=== PATIENT | female | born 1955 | race Caucasian/White ===

== ENCOUNTER 2020-01-29 11:50 | Outpatient (CLI) | payer OTHER, SELFPAY ==
--- NOTE | ~2020-01-29 | MM_ITS ---
EXAMINATION: MM screening rodri BI w arya HISTORY: Screening mammogram, family history of breast cancer in her mother. TECHNIQUE: Craniocaudal and mediolateral oblique 3-D tomosynthesis images were obtained and synthetic 2-D images were generated. CAD analysis was submitted and interpreted. COMPARISON: 09/10/2018, 06/11/2017, 01/11/2016 BREAST PARENCHYMAL COMPOSITION: There are scattered areas of fibroglandular density. FINDINGS: Unchanged focal asymmetry is again noted in the upper outer quadrant of the right breast. T here is no evidence of suspicious mass, calcification, or architectural distortion to suggest maligna ncy in either breast. There has been no suspicious interval change. IMPRESSION: 1. No mammographic evidence of malignancy. 2. Recommend routine screening mammography in one year. BI-RADS Category 2: Benign finding(s). Reviewed, dictated and finalized at location A.
== END 2020-01-29 11:51 | disposition home or self-care (01) ==
LOC: ANHIMG 11:52
PROVIDERS: PCP Family Medicine; Visit Provider Obstetrics & Gynecology
DX: Z12.31 Encounter for screening mammogram for malignant neoplasm of breast (principal)
CPT/HCPCS: 77063; 77067

== ENCOUNTER 2020-01-29 21:07 | Emergency (ER) | payer OTHER, SELFPAY ==
--- NOTE | ~2020-01-29 | CT_ITS ---
EXAMINATION: CT abdomen pelvis w con DATE: 01/29/2020 23:13 INDICATION: Left lower quadrant abdominal pain. TECHNIQUE: Computed tomography (CT) of the abdomen and pelvis was performed with 100 mL Omnipaque 350 intravenous contrast. Automated exposure control and iterative reconstruction technique were employe d. The dose-length product was 1300.59 mGy-cm. COMPARISON: CT abdomen and pelvis 10/29/2017 FINDINGS: The visualized portions of the lung bases demonstrate mild atelectasis. No pleural effusion . The heart size is normal. No pericardial effusion. The liver is normal. There are changes of cholec ystectomy. The spleen is normal. Pancreas divisum is noted. The adrenal glands are normal. There are cysts in the kidneys measuring up to 1.2 cm on the right. There are scattered diverticula in the colo n. There is wall thickening of the sigmoid colon with adjacent fat stranding, consistent with diverti culitis. There are no dilated loops of bowel. The appendix is normal. There are no pathologically enl arged lymph nodes. There is no free intraperitoneal fluid. There is severe lumbar spondylosis and mil d thoracic spondylosis. IMPRESSION: 1. Acute sigmoid diverticulitis. No perforation or abscess. Reviewed, dictated and finalized at location A.
[2020-01-29 21:10] VITALS: BP 135/83; PULSE 113; RESP 20; TEMP 36.2; O2SAT 100
[2020-01-29 22:08] LABS: Basophils Absolute Auto 0.1 K/mm3 (0.0-0.1); Basophils Percent Auto 0.5 % (0.2-1.2); Eosinophils Absolute Auto 0.1 K/mm3 (0-0.3); Eosinophils Percent Auto 0.7 % (0-4.4); Hematocrit 40.6 % (37.0-47.0); Hemoglobin 13.7 g/dL (12.0-15.0); Immature Granulocyte Absolute 0.04 K/mm3 (0.00-0.031); Immature Granulocyte Percent A 0.3 % (0-0.5); Lymphocytes Absolute Auto 1.29 K/mm3 (0.9-3.2); Mean Corpuscular HGB Conc 33.7 g/dl (32-36); Mean Corpuscular Hemoglobin 30.9 pg (26-34); Mean Corpuscular Volume 91.4 fl (80-100); Mean Platelet Volume 9.9 fl (7.4-10.4); Monocytes Absolute Auto 1.3 K/mm3 (0.1-0.6); Neutrophils Absolute Auto 10.1 K/mm3 (1.3-6.7); Neutrophils Percent Auto 78.5 % (45.5-73.1); Platelet Count Result 295 k/mm3 (150-375); Red Blood Count 4.44 M/mm3 (4.2-5.4); Red Cell Distribution Width 13.7 % (11.5-14.5); White Blood Count 12.9 K/mm3 (4.5-10.0)
[2020-01-29 22:15] LABS: Add Urine Microscopic? YES; Appearance Urine Clear (Clear); Bacteria Urine Trace /hpf; Bilirubin Urine Negative (Negative); Color Urine Yellow (Yellow); Glucose Urine UA Negative (Negative); Ketones Urine Negative (Negative); Leukocyte Esterase Ur 1+ LEU/UL (Negative); Mucus Urine Rare /lpf; Nitrate Urine Negative (Negative); Protein Urine Negative (Negative); RBC Urine 0-2 /hpf (0-2); Specific Grav Ur 1.018 (1.001-1.035); Squamous Epithelial Cell Urine Moderate /hpf (Few); Urobilinogen Urine Negative mg/dL (<2.0)
[2020-01-29 22:17] LABS: Blood Urine Negative (Negative)
[2020-01-29] MEDS: MORPHINE SULFATE 4 MG/ML INJ IV PUSH (22:17)
[2020-01-29 22:23] VITALS: BP 144/82; PULSE 112; RESP 22; O2SAT 95
--- NOTE | 2020-01-29 22:35 | ED.ABDPAIN ---
HPI - Abdominal Pain General Chief Complaint: Abdominal Pain Stated Complaint: stomach ache, diverticulitus symptoms Time Seen by Provider: 01/29/20 21:33 History of Present Illness HPI narrative: Severe lower abdominal pain since earlier today. No radiation. Associated with nausea. Similar to the pain she has had with diverticulitis in the past. Related Data Home Medications Medication Instructions Recorded Confirmed calcium carbonate 600 mg calcium 600 mg PO DAILY 07/01/19 (1,500 mg) tablet cholecalciferol (vitamin D3) 100 4,000 unit PO DAILY 07/01/19 mcg (4,000 unit) capsule pravastatin 20 mg tablet 20 mg PO DAILY 07/01/19 cyproheptadine 4 mg tablet 4 mg PO .QHS tablet 09/21/19 metoprolol succinate 100 mg 50 mg PO DAILY tablet 09/21/19 tablet,extended release 24 hr vitamin B complex 1 tablet PO DAILY 09/21/19 sulfasalazine 500 mg tablet 1 gm PO BID tablet 01/25/20 Allergies Allergy/AdvReac Type Severity Reaction Status Date / Time No Known Allergies Allergy Verified 01/25/20 11:37 Review of Systems Review of Systems: All systems reviewed & are unremarkable except as noted in HPI and below Constitutional: Constitutional: Denies fever(s) Cardiovascular: Cardiovascular: Denies chest pain Respiratory: Respiratory: Denies dyspnea Gastrointestinal: Gastrointestinal: Reports abdominal pain, Reports diarrhea, Reports nausea and Denies vomiting Genitourinary: Genitourinary: Denies hematuria and Denies dysuria Neurologic: Denies dizziness and Denies weakness [facility] Past Medical History Medical History (Updated 01/31/20 @ 04:29 by Bill Leon MD) Diverticulitis Surgical History Surgical History H/O arthroscopy of knee H/O: hysterectomy History of knee replacement Hx of cholecystectomy Hx of tonsillectomy Social History Social History Smoking status: Never smoker Alcohol intake: never Exam Const: General: healthy appearing and alert Orientation/consciousness: patient oriented x3 Other: mild distress HENMT: Head: normal to inspection Neck: Neck: normal visual inspection and no lymphadenopathy Chest: Chest palpation & inspection: no tenderness Resp: Effort & Inspection: normal respiratory effort Auscultation: clear to auscultation bilaterally, no rales, no rhonchi and no wheezes Cardio: Jugular venous distension: no JVD Rate: regular rate Rhythm: regular rhythm Heart sounds: no murmurs GI: Inspection: non-distended GI Palp: Yes Soft to palpation and No Tenderness to palpation present (GI) Skin: General skin exam: normal color Neuro: General: patient oriented x3 and moves all extremities Speech: normal speech Extrem: General: no edema Psych: Appearance: well kempt Affect: normal affect Course Vital Signs Vital signs: Vital Signs Temperature 36.2 C L 01/29/20 21:10 Pulse Rate 113 H 01/29/20 21:10 Respiratory Rate 20 01/29/20 21:10 Blood Pressure 135/83 01/29/20 21:10 Pulse Oximetry 100 01/29/20 21:10 Temperature 36.2 C L 01/29/20 21:10 Pulse Rate 103 H 01/30/20 00:48 Respiratory Rate 20 01/30/20 00:48 Blood Pressure 157/96 H 01/30/20 00:48 Pulse Oximetry 99 01/30/20 00:48 MDM - Abdominal Pain MDM Narrative Medical decision making narrative: CT shows uncomplicated diverticulitis. She is appropriate for out patient treatment. Differential Diagnosis Differential diagnosis: Likely acute appendicitis, calculus of kidney, diverticulitis and pancreatitis Medical Records Attestation: I reviewed the patient's medical records. Lab Data Attestation: I reviewed the patient's lab results. Result diagrams: 01/29/20 21:57 01/29/20 21:57 Labs: Lab Results 01/29/20 01/29/20 01/29/20 Range/Units 21:57 21:57 21:58 WBC 12.9 H (4.5-10.0) K/mm3 RBC 4.44 (4.2-5.4) M/mm3
[2020-01-29 22:45] LABS: Alanine Aminotransferase 24 U/L (4-35); Albumin Level 4.8 g/dL (3.5-5.1); Alkaline Phosphatase 56 U/L (38-126); Aspartate Amino Transferase 33 U/L (14-36); Bilirubin,Total 0.9 mg/dL (0.2-1.3); Blood Urea Nitrogen 26 mg/dL (7-17); Carbon Dioxide 23 mmol/L (22-30); Chloride 101 mmol/L (98-107); Estimated CRCL calculation 71 ml/min; Estimated Glomerular Filt Rate > 60; Glucose 124 mg/dL (65-105); Lipase 291 U/L (23-300); Potassium 4.3 mmol/L (3.4-5.0); Sodium 134 mmol/L (137-145)
[2020-01-29] MEDS: SODIUM CHLORIDE 0.9% IV 1,000 ML 999 ML IV CONT (22:56)
[2020-01-29] MEDS: ONDANSETRON INJ 4 MG/2 ML VIAL IV PUSH (22:56)
[2020-01-30 00:39] VITALS: BP 157/96; PULSE 103; RESP 20; O2SAT 97
[2020-01-30 00:48] VITALS: BP 157/96; PULSE 103; RESP 20; O2SAT 99
== END 2020-01-30 00:42 | disposition home or self-care (01) ==
PROVIDERS: Emergency Provider Emergency Medicine; PCP Family Medicine
DX: K57.32 Diverticulitis of large intestine without perforation or abscess without bleeding (principal); Z96.659 Presence of unspecified artificial knee joint
CPT/HCPCS: 36415; 74177; 80053; 81001; 81025; 83690; 85025; 87086; 96361; 96365; 96375; 99284; A9270; J2270; J2405; J2543; J3010; J7030; Q9967

== ENCOUNTER → 2020-05-10 11:13 | Outpatient (CLI) | payer OTHER, SELFPAY ==
--- NOTE | ~2020-05-10 | DEXA_ITS ---
Bone Density Report Name: Audra Yoo Age: 65 Sex: Female Ethnicity: White Date of : 1955 Indication: postmenopausal; screening for osteoporosis; height loss; history of glucocorticoids; hysterectomy; Referring Provider: Joe Blake Study: Bone densitometry was performed. Exam Date: May 10, 2020 Accession number: [id number] Bone Density: Region BMD T-score Z-score Classification AP Spine (L1-L4) 1.149 0.9 2.6 Normal Femoral Neck (Left) 0.809 -0.4 1.1 Normal Total Hip (Left) 1.053 0.9 2.1 Normal Femoral Neck (Right) 0.799 -0.4 1.0 Normal Total Hip (Right) 0.919 -0.2 1.0 Normal Total Hip Mean 0.986 0.4 1.6 Normal World Health Organization criteria for BMD impression classify patients as: Normal (T-score at or above -1.0), Osteopenia (T-score between -1.0 and -2.5), or Osteoporosis (T-score at or below -2.5). 10-year Fracture Risk: FRAX not reported because: All T-scores for Spine Total, Hip Total, Femoral Neck at or above -1.0 Clinical Information Provided by Patient: Has taken Glucocorticoids Has used the following medications: Vitamin D, Calcium, MTV Has the following medical conditions: Hysterectomy, stage 3 Kidney disease Patient maximum height was 68.5 Menopause Age: 42 No regular weight bearing exercise Does not regularly consume dairy products Drinks caffeinated beverages Onset of menses at age 14 Number of children 6 Impression: The patient has normal bone mass. The patient has risk factors, including: history of glucocorticoid therapy. Discussion: BONE DENSITY IS ABOVE THE MINIMUM DESIRABLE LEVEL AT ALL SKELETAL SITES TESTED. This patient?s bone mineral density is above the minimum desirable level (T-score -1.0 or better) at all sites measured. The patient should follow a healthful lifestyle (good nutrition with adequate calcium and vitamin D, and appropriate weight-bearing exercise). Follow-Up: Consider repeating this study in 5 years or sooner if there is some new clinical indication. Reported by: [facility] on 05/10/2020 12:07:00 PM. Reviewed, dictated and finalized at location AShania EVANGELISTA
== END ==
PROVIDERS: PCP Family Medicine; Visit Provider Obstetrics & Gynecology
DX: Z13.820 Encounter for screening for osteoporosis (principal); Z78.0 Asymptomatic menopausal state
CPT/HCPCS: 77080

== ENCOUNTER 2021-04-22 15:09 | Emergency (ER) | payer MEDICARE, SELFPAY ==
--- NOTE | ~2021-04-22 | CT_ITS ---
EXAMINATION: CT abdomen pelvis wo con DATE: 04/22/2021 18:33 INDICATION: Abdominal pain and diarrhea. TECHNIQUE: Computed tomography (CT) of the abdomen and pelvis was performed without intravenous contr ast. Automated exposure control and iterative reconstruction technique were employed. The dose-length product was 1168.77 mGy-cm. COMPARISON: 01/29/2020 FINDINGS: Mild discoid atelectasis at the left lower lobe and lingula. Heart size is normal. No pericardial or pleural effusion. Diffuse hepatic steatosis. Cholecystectomy clips the gallbladder fossa. Spleen, graham creas, left kidney and bilateral adrenal glands are normal. 1 cm cyst at the lower pole of the right kidney. Small calcified appendicolith within the normal appendix with no periappendiceal inflammatory stranding to suggest acute appendicitis. There is mild colonic diverticulosis with a sigmoid predomi nance. There is no adjacent inflammatory change to suggest diverticulitis. There is fluid throughout the colon consistent with diarrhea. No bowel obstruction. Decompressed bladder is unremarkable. The uterus is not identified and has likely been surgically resected. No free intraperitoneal gas or flui d. There is new subtle haziness to the mesenteric fat surrounding multiple enlarging and likely react cheryl lymph nodes which still remain within normal limits in size. No pathologically enlarged abdominal or pelvic lymphadenopathy. Tiny fat-containing umbilical hernia. Anterior and posterior spinal fusio n at L4-L5. Severe spondylosis at the lumbosacral junction. IMPRESSION: 1. 2 throughout the colon consistent with diarrhea. 2. Mild mesenteric lymphadenopathy which is likely reactive. 3. Diverticulosis. 4. Diffuse hepatic steatosis. Reviewed, dictated and finalized at location A.
[2021-04-22 15:12] VITALS: BP 130/104; PULSE 97; TEMP 36.4; O2SAT 98
[2021-04-22 17:40] VITALS: BP 124/81; PULSE 95; RESP 18; O2SAT 99
[2021-04-22 17:54] LABS: Basophils Percent Auto 0.4 % (0.2-1.2); Eosinophils Absolute Auto 0.1 K/mm3 (0-0.3); Eosinophils Percent Auto 1.2 % (0-4.4); Hemoglobin 16.5 g/dL (12.0-15.0); Immature Granulocyte Absolute 0.03 K/mm3 (0.00-0.031); Immature Granulocyte Percent A 0.4 % (0-0.5); Lymphocytes Percent Auto 18.8 % (18.3-44.2); Mean Corpuscular HGB Conc 33.7 g/dl (32-36); Mean Corpuscular Hemoglobin 31.7 pg (26-34); Mean Corpuscular Volume 94.2 fl (80-100); Mean Platelet Volume 9.7 fl (7.4-10.4); Monocytes Percent Auto 13.5 % (2.6-8.5); Neutrophils Absolute Auto 4.9 K/mm3 (1.3-6.7); Neutrophils Percent Auto 65.7 % (45.5-73.1); Platelet Count Result 379 k/mm3 (150-375); Red Cell Distribution Width 14.3 % (11.5-14.5); White Blood Count 7.4 K/mm3 (4.5-10.0)
[2021-04-22 18:04] LABS: Alanine Aminotransferase 59 U/L (4-35); Albumin Level 5.3 g/dL (3.5-5.1); Alkaline Phosphatase 59 U/L (38-126); Anion Gap 13 mmol/L (8-16); Aspartate Amino Transferase 54 U/L (14-36); Bilirubin,Total 1.1 mg/dL (0.2-1.3); Blood Urea Nitrogen 44 mg/dL (7-17); Calcium 10.1 mg/dL (8.4-10.2); Carbon Dioxide 21 mmol/L (22-30); Chloride 102 mmol/L (98-107); Estimated CRCL calculation 37 ml/min; Estimated Glomerular Filt Rate 30; Glucose 120 mg/dL (65-110); Lipase 217 U/L (23-300); Potassium 4.4 mmol/L (3.4-5.0); Sodium 136 mmol/L (137-145)
[2021-04-22 18:47] LABS: Add Urine Microscopic? YES; Amorphous Sediment Urine Few; Appearance Urine Cloudy (Clear); Bilirubin Urine Negative (Negative); Blood Urine Negative (Negative); Color Urine Amber (Yellow); Glucose Urine UA Negative (Negative); Hyaline Casts Urine 30-49 /lpf; Ketones Urine Trace mg/dL (Negative); Leukocyte Esterase Ur Trace LEU/UL (Negative); Mucus Urine Rare /lpf; Nitrate Urine Negative (Negative); Protein Urine 1+ mg/dL (Negative); Specific Grav Ur 1.026 (1.001-1.035); Squamous Epithelial Cell Urine Moderate /hpf (Few); Urobilinogen Urine Negative mg/dL (<2.0)
--- NOTE | 2021-04-22 18:56 | ED.NAVMDI ---
HPI - Nausea/Vomiting/Diarrhea General Chief complaint: Nausea/Vomiting/Diarrhea Stated complaint: n/v/d Time Seen by Provider: 04/22/21 18:09 Mode of arrival: ambulatory Limitations: no limitations History of Present Illness HPI Narrative: 66-year-old female past medical history of psoriatic arthritis complaining of 5-day history of diarrhea. Patient complains of watery stool every time she eats. Up to 6 times a day. No fever, does have nausea, no abdominal pain occasionally has some abdominal cramping none focal worse with food. No vomiting, no bright red blood per rectum no hematochezia no melena. No other complaints. She does state that when she gets diverticulitis it feels different than this. Patient states methotrexate recently decreased, and two medicines were discontinued including hydroxychloroquine. Related Data Home Medications Medication Instructions Recorded Confirmed cholecalciferol (vitamin D3) 100 4,000 unit PO DAILY 07/01/19 12/06/20 mcg (4,000 unit) capsule vitamin B complex 1 tablet PO DAILY 09/21/19 12/06/20 folic acid 1 mg tablet 1 mg PO DAILY 12/06/20 12/06/20 skjmlxfg-qat-qoenf ac 400 tablet PO 12/06/20 12/06/20 mcg-calcium carb 500 mg-vit K1 20 mcg tablet methotrexate sodium 2.5 mg tablet See Rx Instructions PO WEEKLY 05/04/21 Allergies Allergy/AdvReac Type Severity Reaction Status Date / Time No Known Allergies Allergy Verified 04/22/21 17:58 Review of Systems Review of Systems: CONSTITUTIONAL: no fever, no weight loss, no confusion EYES: no vision changes, no eye pain ENT: no rhinorrhea, no sore throat, no difficulty swallowing CARDIOVASCULAR: no chest pain, no leg edema, no palpitations RESPIRATORY: no cough, no shortness of breath, no hemoptysis GASTROINTESTINAL: diffuse abdominal pain, no nausea, no vomiting, positive for diarrhea, no melena GENITOURINARY: no flank pain, no dysuria, no hematuria SKIN: no rash, no jaundice MUSCULOSKELETAL: no back pain, no trauma. NEUROLOGIC: No headache, no dizziness, no focal weakness PSYCHIATRIC: No hallucinations, no suicidal ideation PMFSH Past Medical History Medical History (Updated 05/14/21 @ 12:40 by Yoko Allred MD) Diverticulitis Surgical History Surgical History H/O arthroscopy of knee H/O: hysterectomy History of knee replacement Hx of cholecystectomy Hx of tonsillectomy Family History Family History Father Family history of glaucoma Cerebrovascular accident Carcinoma of colon Mother Family history of glaucoma Hypertension Family history of malignant neoplasm of breast in first degree relative Social History Social History Alcohol intake: never Exam Narrative: General: alert, afebrile, answering all questions appropriately Head: normocephalic, atraumatic Eyes: EOMI bilaterally, anicteric, no injection ENT: dry mucous membranes, oropharynx patent, no rhinorrhea Neck: supple, trachea midline, no JVD Chest: equal chest rise bilaterally, no chest wall trauma noted Lungs: clear to auscultation bilaterally, respirations unlabored CV: regular rate, no CINDY B, calf size equal bilaterally Abd: soft, non-distended, mild diffuse tenderness, no rebound, no gaurding, negative Bennett's : no CVA tenderness B, bladder non-distended EXT: no deformity noted, moving all extremities equally Skin: warm, dry, no pallor Neuro: alert, oriented x 3; CN 2-12 grossly intact, no dysarthria Psych: affect appropriate, though content normal Course Course Emergency Course: Cratinine 1.7; HgB 16.5; likely dehydration; IVF infusing, no diarrhea in ed; no elevated WBC, no fever, doubt infectious diarrhea; CT Abd/Pelvis consistent with enteritis;patient with multiple abx allergies, will dc home with loperamide only and have patient followup with PMD this week w
--- NOTE | 2021-04-22 18:59 | ED.NAVMDI ---
HPI - Nausea/Vomiting/Diarrhea General Chief complaint: Nausea/Vomiting/Diarrhea Stated complaint: n/v/d Time Seen by Provider: 04/22/21 18:09 Source: patient Mode of arrival: ambulatory Limitations: no limitations History of Present Illness HPI Narrative: 66-year-old female with history of psoriatic arthritis on methotrexate currently complaining of diarrhea for the last 5 days. She describes the diarrhea as watery, nonbloody, worse with eating, improves with not eating. She did have vomiting x1 yesterday. No fever. Last ate soup prior to arrival. Does have intermittent cramping abdominal pain diffuse worse with eating and worse with diarrhea. Patient has had C. difficile in the past and states is not similar. No melena no bright red blood per rectum, no hematemesis. Does have a history of sick contacts--children in the home of had both fever and vomiting. No flank pain, no hematuria, no dysuria. Patient is passing gas. MD elicited complaint: diarrhea Pertinent past history: other (C. difficile, currently on methotrexate.) Onset (ago): day(s) (5) Description of vomiting: watery Description of diarrhea: watery Associated nausea: Yes Associated abdominal pain: Yes Location of pain: diffuse Radiation: diffuse Pain consistency: intermittent Severity: mild Quality: cramping Exacerbating factors: eating Relieving factors: rest Context: sick contacts Associated symptoms: nausea/vomiting Treatment prior to arrival: none Related Data Home Medications Medication Instructions Recorded Confirmed cholecalciferol (vitamin D3) 100 4,000 unit PO DAILY 07/01/19 12/06/20 mcg (4,000 unit) capsule vitamin B complex 1 tablet PO DAILY 09/21/19 12/06/20 folic acid 1 mg tablet 1 mg PO DAILY 12/06/20 12/06/20 methotrexate sodium 2.5 mg tablet See Rx Instructions PO WEEKLY 12/06/20 12/06/20 mruuebhp-bfm-egovb ac 400 tablet PO 12/06/20 12/06/20 mcg-calcium carb 500 mg-vit K1 20 mcg tablet Allergies Allergy/AdvReac Type Severity Reaction Status Date / Time No Known Allergies Allergy Verified 04/22/21 17:58 Review of Systems Review of Systems: CONSTITUTIONAL: no fever, no weight loss, no confusion EYES: no vision changes, no eye pain ENT: no rhinorrhea, no sore throat, no difficulty swallowing CARDIOVASCULAR: no chest pain, no leg edema, no palpitations RESPIRATORY: no cough, no shortness of breath, no hemoptysis GASTROINTESTINAL: crampy abdominal pain, positive nausea, vomitingx 1 , multiple episodes of diarrhea GENITOURINARY: no flank pain, no dysuria, no hematuria SKIN: no rash, no jaundice MUSCULOSKELETAL: no back pain, no trauma. NEUROLOGIC: No headache, no dizziness, no focal weakness PSYCHIATRIC: No hallucinations, no suicidal ideation PMFSH Past Medical History Medical History (Updated 04/22/21 @ 20:41 by Yoko Allred MD) Diverticulitis Surgical History Surgical History H/O arthroscopy of knee H/O: hysterectomy History of knee replacement Hx of cholecystectomy Hx of tonsillectomy Family History Family History Father Family history of glaucoma Cerebrovascular accident Carcinoma of colon Mother Family history of glaucoma Hypertension Family history of malignant neoplasm of breast in first degree relative Social History Social History Alcohol intake: never Exam Narrative: General: alert, afebrile, answering all questions appropriately Head: normocephalic, atraumatic Eyes: EOMI bilaterally, anicteric, no injection ENT: moist mucous membranes, oropharynx patent, no rhinorrhea Neck: supple, trachea midline, no JVD Chest: equal chest rise bilaterally, no chest wall trauma noted Abd: soft, non-distended, non-tender, no rebound, no gaurding, negative Bennett's : no CVA tenderness B, bladder non-distended EXT: no deformity note
[2021-04-22] MEDS: SODIUM CHLORIDE 0.9% IV 1,000 ML 999 ML IV CONT (19:00)
[2021-04-22] MEDS: ONDANSETRON INJ 4 MG/2 ML VIAL IV PUSH (19:06)
[2021-04-22 20:52] VITALS: BP 142/84; PULSE 88; RESP 16; O2SAT 99
[2021-04-22] MEDS: LOPERAMIDE HCL 2 MG CAPSULE 4 MG PO (20:52)
== END 2021-04-22 20:55 | disposition home or self-care (01) ==
PROVIDERS: Physician Assistant; Emergency Provider Emergency Medicine; PCP Family Medicine
DX: E86.0 Dehydration (principal); K52.9 Noninfective gastroenteritis and colitis, unspecified
CPT/HCPCS: 36415; 74176; 80053; 81001; 83690; 85025; 96374; 99284; A9270; J2405; J7030

== ENCOUNTER 2021-05-30 12:19 | Outpatient (CLI) | payer MEDICARE, SELFPAY ==
--- NOTE | ~2021-05-30 | MMUS_ITS ---
EXAMINATION: MM diagnostic rodri BI w arya, US breast LT limited HISTORY: Tenderness and possible lump in the upper outer quadrant of the left breast. TECHNIQUE: Craniocaudal, mediolateral, and mediolateral oblique 3-D tomosynthesis images of the teri ts were performed and synthetic 2-D images were generated. CAD analysis was submitted and interpreted . High resolution limited left breast ultrasound was performed. COMPARISON: 01/29/2020, 09/10/2018 BREAST PARENCHYMAL COMPOSITION: There are scattered areas of fibroglandular density. FINDINGS: MAMMOGRAPHIC FINDINGS: There is no evidence of suspicious mass, calcification, or architectural distortion in either breast malignancy. There has been no suspicious interval change. No mammographic correlate is identified for the reported tenderness and possible lump in the upper outer quadrant of the left breast. ULTRASOUND: There is a benign-appearing lymph node in the left axilla in the area of clinical concern. No suspici ous cystic or solid mass is identified. IMPRESSION: 1. No suspicious mammographic or sonographic correlate is identified for the reported palpable abnorm ality of concern. Further evaluation at this time should be based on clinical assessment. Continued f ollow-up physical examination is recommended. 2. Recommend routine screening mammography in one year. BI-RADS Category 2: Benign finding(s). Reviewed, dictated and finalized at location A. [employer] IMPRESSION: 1. No suspicious mammographic or sonographic correlate is identified for the re ported palpable abnormality of concern. Further evaluation at this time should be based on clinical assessment. Continued follow-up physical examination is re commended. 2. Recommend routine screening mammography in one year. BI-RADS Category 2: Benign finding(s).
== END 2021-05-30 12:20 | disposition home or self-care (01) ==
PROVIDERS: PCP Family Medicine; Visit Provider Obstetrics & Gynecology
DX: R92.8 Other abnormal and inconclusive findings on diagnostic imaging of breast (principal)
CPT/HCPCS: 76642; 77062; 77066; G0279

== ENCOUNTER 2021-11-23 10:09 | Inpatient (IN) | payer MEDICARE, SELFPAY ==
[2021-11-23] VITALS (29 sets, daily range): BP systolic 123–145; BP diastolic 73–92; PULSE 68–112; RESP 16–18; TEMP 36.1–37.1; O2SAT 94–100
--- NOTE | ~2021-11-23 | CT_ITS ---
EXAMINATION: CT abdomen pelvis w con DATE: 11/23/2021 13:16 INDICATION: Abdominal pain. TECHNIQUE: Computed tomography (CT) of the abdomen and pelvis was performed with 100 mL Omnipaque-350 intravenous contrast. Automated exposure control and iterative reconstruction technique were employe d. The dose-length product was 959.31 mGy-cm. COMPARISON: None FINDINGS: Discoid atelectasis in the left lower lobe. Heart size is normal. No pericardial or pleural effusion. Cholecystectomy clips the gallbladder fossa. Small region of focal hepatic steatosis at the ligament um teres. Spleen, pancreas and bilateral adrenal glands are normal. Bilateral low-attenuation renal c ysts the largest on the right measuring 1.2 cm. Duplicated right renal collecting system which fuses at an extrarenal pelvis with only a single ureter small bowel and appendix are normal. There is mild sigmoid diverticulosis with wall thickening and prominent inflammatory stranding centered about a div erticulum at the mid sigmoid colon consistent with diverticulitis. Very small amount of likely reacti ve free fluid in the deep pelvis. No abscess or free intraperitoneal gas. Very small fat-containing u mbilical hernia. Bladder is normal. The uterus is not identified and has likely been surgically resec ying. No pathologically enlarged abdominal or pelvic lymphadenopathy. Severe lower lumbar spondylosis with both anterior and posterior spinal fusion without instrumentation at L4-L5. Benign mixed lytic a nd sclerotic lesion anterior to the left lesser trochanter which appears stable since radiograph date d 09/04/2005. IMPRESSION: 1. Radiographically uncomplicated sigmoid diverticulitis. Reviewed, dictated and finalized at location A.
[2021-11-23 10:23] LABS: Basophils Absolute Auto 0.1 K/mm3 (0.0-0.1); Basophils Percent Auto 0.3 % (0.2-1.2); Eosinophils Percent Auto 0.2 % (0-4.4); Hematocrit 46.6 % (37.0-47.0); Hemoglobin 15.8 g/dL (12.0-15.0); Immature Granulocyte Absolute 0.05 K/mm3 (0.00-0.031); Immature Granulocyte Percent A 0.3 % (0-0.5); Lymphocytes Absolute Auto 2.14 K/mm3 (0.9-3.2); Lymphocytes Percent Auto 14.8 % (18.3-44.2); Mean Corpuscular HGB Conc 33.9 g/dl (32-36); Mean Corpuscular Hemoglobin 31.4 pg (26-34); Mean Corpuscular Volume 92.6 fl (80-100); Mean Platelet Volume 9.9 fl (7.4-10.4); Monocytes Absolute Auto 1.1 K/mm3 (0.1-0.6); Monocytes Percent Auto 7.7 % (2.6-8.5); Neutrophils Absolute Auto 11.1 K/mm3 (1.3-6.7); Neutrophils Percent Auto 76.7 % (45.5-73.1); Platelet Count Result 382 k/mm3 (150-375); Red Blood Count 5.03 M/mm3 (4.2-5.4); Red Cell Distribution Width 14.2 % (11.5-14.5); White Blood Count 14.5 K/mm3 (4.5-10.0)
[2021-11-23 10:34] LABS: Alanine Aminotransferase 40 U/L (6-35); Albumin Level 4.7 g/dL (3.5-5.1); Alkaline Phosphatase 63 U/L (38-126); Anion Gap 10 mmol/L (8-16); Aspartate Amino Transferase 44 U/L (14-36); Bilirubin,Total 1.4 mg/dL (0.2-1.3); Blood Urea Nitrogen 11 mg/dL (7-17); Calcium 9.4 mg/dL (8.4-10.2); Carbon Dioxide 26 mmol/L (22-30); Chloride 101 mmol/L (98-107); Estimated CRCL calculation 56 ml/min; Estimated Glomerular Filt Rate 50; Glucose 129 mg/dL (65-110); Lipase 202 U/L (23-300); Potassium 4.1 mmol/L (3.4-5.0); Sodium 137 mmol/L (137-145)
[2021-11-23 10:34] LABS: Appearance Urine Slightly Cloudy (Clear); Bilirubin Urine 1+ (Negative); Glucose Urine UA Negative (Negative); Ketones Urine Negative (Negative); Leukocyte Esterase Ur 1+ LEU/UL (Negative); Nitrate Urine Negative (Negative); Protein Urine 1+ mg/dL (Negative); Specific Grav Ur >= 1.030 (1.001-1.035); Urobilinogen Urine 0.2 mg/dL (<2.0)
[2021-11-23 10:35] LABS: Add Urine Microscopic? YES; Blood Urine Trace-Intact (Negative); Color Urine Dark Yellow (Yellow)
[2021-11-23 10:53] LABS: Bacteria Urine Trace /hpf; Mucus Urine Rare /lpf; Squamous Epithelial Cell Urine Many /hpf (Few); WBC Urine 21-30 /hpf
--- NOTE | 2021-11-23 12:03 | ED.ABDPAIN ---
HPI - Abdominal Pain General Chief Complaint: Abdominal Pain Stated Complaint: abd pain Time Seen by Provider: 11/23/21 12:02 Source: patient Mode of arrival: ambulatory Limitations: no limitations History of Present Illness HPI narrative: The patient is a 66-year-old female with a history of rheumatoid arthritis on Orencia infusion, chronic liver disease, chronic kidney disease, hypertension, presenting to the emergency department for evaluation exacerbation of left lower quadrant abdominal pain. Patient reporting history of diverticulitis, has had numerous flares in the past that have resolved with oral Cipro/Flagyl treatment on an outpatient basis. Patient states her primary care physician initiated these antibiotics last week and she felt better for about 3 days before having worsening pain beginning in the left lower quadrant yesterday. Patient reports an aching, sharp sensation over the past 36 hours. She denies fever but reports nausea. Denies vomiting. Denies any blood or mucus present in her stool. She denies any dysuria, hematuria, suprapubic pain or flank pain. Patient denies rhinorrhea, congestion, cough, shortness of breath. Last oral intake was this morning. Related Data Home Medications Medication Instructions Recorded Confirmed cholecalciferol (vitamin D3) 100 4,000 unit PO DAILY 07/01/19 11/01/21 mcg (4,000 unit) capsule vitamin B complex 1 tablet PO DAILY 09/21/19 11/01/21 folic acid 1 mg tablet 1 mg PO DAILY 12/06/20 11/01/21 lahyzblj-xec-eymbo ac 400 tablet PO 12/06/20 11/01/21 mcg-calcium carb 500 mg-vit K1 20 mcg tablet methotrexate sodium 2.5 mg tablet See Rx Instructions PO WEEKLY 05/04/21 11/01/21 golimumab 12.5 mg/mL intravenous IV 06/13/21 11/01/21 solution Allergies Allergy/AdvReac Type Severity Reaction Status Date / Time lisinopril Allergy Intermediate cough Verified 11/01/21 14:10 Review of Systems Review of Systems: CONSTITUTIONAL: Denies fever, chills, or sweats. EYES: Denies visual changes, redness, or discharge. ENT: Denies rhinorrhea, congestion, sore throat, or otalgia. CARDIOVASCULAR: Denies chest pain, palpitations, or edema. RESPIRATORY: Denies cough or dyspnea. GASTROINTESTINAL: Reports abdominal pain, nausea without vomiting or diarrhea GENITOURINARY: Denies dysuria or hematuria. SKIN: Denies rash or itching. MUSCULOSKELETAL: Denies back pain, joint pain, or myalgia. NEUROLOGIC: Denies headache, numbness, or weakness. [facility] Past Medical History Medical History (Updated 11/23/21 @ 14:26 by Amanda Castillo PA-C) Atherosclerosis of aorta Benign hypertension Chronic kidney disease, stage 3 Diverticulitis Gastroesophageal reflux disease Immunocompromised state due to drug therapy Inflammatory arthritis Mixed hyperlipidemia Nonalcoholic steatohepatitis (LOONEY) Palindromic rheumatism involving lower leg Polyarthritis of multiple sites Psoriatic arthritis Unspecified glaucoma Surgical History Surgical History (Updated 11/23/21 @ 14:21 by Amanda Castillo PA-C) History of arthroplasty of right knee (2001) History of cardiac catheterization History of cholecystectomy History of colonoscopy with polypectomy History of hysterectomy History of lateral meniscus repair of left knee (09/2015) History of tonsillectomy (1963) Family History Family History (Updated 11/23/21 @ 14:23 by Amanda Castillo PA-C) Father Cerebrovascular accident Carcinoma of colon Glaucoma Mother Hypertension Glaucoma Breast cancer Social History Social History (Updated 11/23/21 @ 14:23 by Amanda Castillo PA-C) Social History: Surrogate decision maker: Code status: Alcohol intake: never Exam Narrative: GENERAL: Awake, alert, conversant HEAD: Normocephalic, atraumatic. EYES: PERRLA and EOMI. ENT: Nares clear, no rhinorrhea or epistaxis. Mucous membranes moist. NECK: Supple. CHEST: No respiratory distress, breathing even and non labored HEART: Re
[2021-11-23] MEDS: SODIUM CHLORIDE 0.9% IV 1,000 ML 999 ML IV CONT (12:41)
[2021-11-23] MEDS: MORPHINE SULFATE (*CRX) 4 MG/ML INJ IV PUSH (12:42)
[2021-11-23] MEDS: ONDANSETRON INJ 4 MG/2 ML VIAL IV PUSH (12:42)
[2021-11-23 12:50] LABS: Lactic Acid Reflex 1.5 mmol/L (0.7-2.0)
[2021-11-23 12:55] LABS: SARS-CoV-2 RNA PCR Negative
[2021-11-23] MEDS: HYDROmorphone HCL INJ (*CRX) 1 MG/ML SYR 0.5 MG IV PUSH ×2 (14:25→20:21)
--- NOTE | 2021-11-23 14:30 | PM.IMHP ---
H&P: HPI History of Present Illness Date/Time: 11/23/21 14:30 Chief Complaint: Abdominal pain. Narrative: This is a pleasant 66-year-old female with hypertension, hyperlipidemia, chronic kidney disease, non alcoholic steatohepatitis, and rheumatoid arthritis who presented to the emergency department for evaluation of abdominal pain. Last week she developed symptoms consistent with previous history of diverticulitis and she was started on ciprofloxacin and metronidazole by her primary care provider. She followed a liquid diet for a few days and felt better however 3 days ago her pain returned and it has continued to worsen. She describes a pretty consistent aching discomfort in the mid and left lower quadrant which is occasionally sharp with touch or movement. Her appetite has been poor and she endorses nausea but no vomiting. She also reports multiple, small loose stools a day without obvious blood or mucus. CT of the abdomen and pelvis showed uncomplicated sigmoid diverticulosis though given her immunocompromised state and continued symptoms despite nearly a week of antibiotics it was felt best that she be admitted for IV antibiotics. Review of Systems Review of Systems: Twelve systems were reviewed. No fever, chills, or sweats. No recent cold or flu symptoms. She has been having pains in her shoulders and wrists recently related to her rheumatoid arthritis. She has been on methotrexate for many years and was on Simponi though that did not seem to help. Little over week ago she had her 1st infusion of Orencia. Except as documented, all other systems were reviewed and are negative. [facility] Past Medical History Medical History (Updated 11/23/21 @ 22:29 by Amanda Castillo PA-C) Atherosclerosis of aorta Benign hypertension Chronic kidney disease, stage 3 Diverticulitis Gastroesophageal reflux disease Immunocompromised state due to drug therapy Mixed hyperlipidemia Nonalcoholic steatohepatitis (LOONEY) Palindromic rheumatism involving lower leg Polyarthritis of multiple sites Rheumatoid arthritis Unspecified glaucoma Surgical History Surgical History (Updated 11/23/21 @ 14:21 by Amanda Castillo PA-C) History of arthroplasty of right knee (2001) History of cardiac catheterization History of cholecystectomy History of colonoscopy with polypectomy History of hysterectomy History of lateral meniscus repair of left knee (09/2015) History of tonsillectomy (1963) Family History Family History Father Cerebrovascular accident Carcinoma of colon Glaucoma Mother Hypertension Glaucoma Breast cancer Social History Social History (Updated 11/23/21 @ 22:30 by Amanda Castillo PA-C) Social History: Surrogate decision maker: Gerardo Yoo, spouse. Code status: Full code. Smoking status: Never smoker Alcohol intake: never Substance use: never Living arrangements: with family Occupation/Education: retired Spiritual care concerns: No Meds Home Medications and Allergies Home Medications Medication Instructions Recorded Confirmed Type cholecalciferol (vitamin D3) 100 4,000 unit PO DAILY 07/01/19 11/23/21 History mcg (4,000 unit) capsule vitamin B complex 1 tablet PO DAILY 09/21/19 11/23/21 History folic acid 1 mg tablet 1 mg PO DAILY 12/06/20 11/23/21 History dtqckbhf-evk-zatlx ac 400 1 tablet PO DAILY 12/06/20 11/23/21 History mcg-calcium carb 500 mg-vit K1 20 mcg tablet methotrexate sodium 2.5 mg tablet See Rx Instructions PO WEEKLY 05/04/21 11/23/21 History clonazepam 1 mg tablet 1 mg PO DAILY #90 tablet 07/31/21 11/23/21 Rx spironolactone 25 mg tablet 25 mg PO BID #180 tablet 09/27/21 11/23/21 Rx metoprolol succinate 100 mg 50 mg PO DAILY #90 tablet 10/18/21 11/23/21 Rx tablet,extended release 24 hr cyproheptadine 4 mg tablet See Rx Instructions .ROUTE 10/24/21 11/23/21 Rx .COMPLEX #90 tablet amlodipine 5 mg tablet 5 mg PO DAILY
[2021-11-24] MEDS: CYPROHEPTADINE HCL 4 MG TABLET BY MOUTH ×2 (00:29→20:05)
[2021-11-24] MEDS: SODIUM CHLORIDE 0.9% IV 1,000 ML 100 ML IV CONT ×2 (00:29→17:01)
[2021-11-24 05:12] VITALS: BP 158/78; PULSE 75; RESP 20; TEMP 36.1; O2SAT 93
[2021-11-24] MEDS: ACETAMINOPHEN 325 MG TABLET 650 MG PO (05:43)
[2021-11-24 06:27] LABS: Hematocrit 40.4 % (37.0-47.0); Hemoglobin 13.6 g/dL (12.0-15.0); Mean Corpuscular HGB Conc 33.7 g/dl (32-36); Mean Corpuscular Hemoglobin 31.8 pg (26-34); Mean Corpuscular Volume 94.4 fl (80-100); Mean Platelet Volume 10.4 fl (7.4-10.4); Platelet Count Result 290 k/mm3 (150-375); Red Blood Count 4.28 M/mm3 (4.2-5.4); White Blood Count 8.6 K/mm3 (4.5-10.0)
[2021-11-24 06:40] LABS: Alanine Aminotransferase 29 U/L (6-35); Albumin Level 3.5 g/dL (3.5-5.1); Alkaline Phosphatase 47 U/L (38-126); Anion Gap 6 mmol/L (8-16); Aspartate Amino Transferase 32 U/L (14-36); Bilirubin,Total 1.8 mg/dL (0.2-1.3); Blood Urea Nitrogen 9 mg/dL (7-17); CRP 6.1 mg/dL (<1.0); Calcium 8.1 mg/dL (8.4-10.2); Carbon Dioxide 25 mmol/L (22-30); Chloride 105 mmol/L (98-107); Estimated CRCL calculation 63 ml/min; Estimated Glomerular Filt Rate 56; Glucose 103 mg/dL (65-110); Magnesium 1.5 mg/dL (1.6-2.3); Potassium 3.5 mmol/L (3.4-5.0); Sodium 136 mmol/L (137-145)
--- NOTE | 2021-11-24 08:28 | PM.IMPN ---
Progress Note: A&P Assessment and Plan (1) Sigmoid diverticulitis: Code(s): K57.32 - Diverticulitis of large intestine without perforation or abscess without bleeding Status: Acute Assessment and Plan: Symptoms continue despite outpatient treatment with ciprofloxacin and metronidazole. Given immunocompromised state, was admitted for IV antibiotics. Stool changes as noted in HPI. Continue Zosyn. Clear liquid diet for now, patient did not tolerate well after breakfast. H&H q.6 hours Stool occult blood expected to be positive with active diverticulitis, will defer for now. Start Protonix (2) Chronic kidney disease, stage 3: Code(s): N18.30 - Chronic kidney disease, stage 3 unspecified Status: Acute Assessment and Plan: Creatinine is a bit elevated, likely due to mild dehydration. Continue gentle IV fluid rehydration. (3) Immunocompromised state due to drug therapy: Code(s): D84.821 - Immunodeficiency due to drugs; Z79.899 - Other director long term care (current) drug therapy Status: Acute Assessment and Plan: On conventional and biologic DMARDs due to inflammatory arthritis Methotrexate not due until Saturday. (4) Nonalcoholic steatohepatitis (LOONEY): Code(s): K75.81 - Nonalcoholic steatohepatitis (LOONEY) Status: Acute Assessment and Plan: LFTs are mildly elevated and are at her baseline, per patient report. (5) Benign hypertension: Code(s): I10 - Essential (primary) hypertension Status: Acute Assessment and Plan: Blood pressures were reviewed and they are stable. Continue antihypertensives and monitor daily. Subjective Date/time seen: 11/24/21 08:28 Interval history: 66-year-old female with hypertension, hyperlipidemia, chronic kidney disease, non alcoholic steatohepatitis, and rheumatoid arthritis who presented to the emergency department for evaluation of abdominal pain. She reports symptoms consistent with prior diverticulitis flares for the past week or so, for which she saw her outpatient PCP and started outpatient antibiotics. She improved for 2-3 days, and then the pain reoccurred worse than before. She denies vomiting, but had significant nausea and some increased upper abdominal pain after consuming a clear liquid diet for breakfast. She did have a bowel movement this morning and stated it was dark and gritty, which is abnormal for her. She denies history of prior gastric or duodenal ulcers, though she does have history of GERD. She has not seen any maxwell red blood in the stool. Review of Systems Review of Systems: All systems reviewed & are unremarkable except as noted in HPI and below Objective Data Vital Signs Vital Signs: Vital Signs - 24 hr 11/23/21 10:15 11/23/21 12:15 11/23/21 12:16 Temperature 97.9 F Pulse Rate 112 H Respiratory Rate 18 Blood Pressure 139/91 H 130/89 133/84 Pulse Oximetry 95 97 96 11/23/21 12:17 11/23/21 12:31 11/23/21 12:38 Temperature Pulse Rate Respiratory Rate Blood Pressure 139/92 H Pulse Oximetry 97 95 94 11/23/21 12:47 11/23/21 13:00 11/23/21 13:38 Temperature Pulse Rate Respiratory Rate Blood Pressure Pulse Oximetry 98 98 100 11/23/21 13:58 11/23/21 14:25 11/23/21 14:32 Temperature Pulse Rate 68 68 Respiratory Rate 18 16 Blood Pressure 126/75 126/80 Pulse Oximetry 100 100 98 11/23/21 14:55 11/23/21 15:04 11/23/21 15:15 Temperature Pulse Rate Respiratory Rate Blood Pressure Pulse Oximetry 98 99 96 11/23/21 15:16 11/23/21 15:42 11/23/21 15:45 Temperature Pulse Rate Respiratory Rate Blood Pressure 145/87 H Pulse Oximetry 97 98 96 11/23/21 15:46 11/23/21 16:00 11/23/21 16:01 Temperature Pulse Rate Respiratory Rate Blood Pressure 123/73 144/73 H Pulse Oximetry 95 98 97 11/23/21 16:15 11/23/21 16:16 11/23/21 16:30 Temperature Pulse Rate
[2021-11-24 09:31] VITALS: PULSE 72
[2021-11-24] MEDS: METOPROLOL SUCCINATE EXT REL 50 MG TABCR PO (09:31)
[2021-11-24] MEDS: clonazePAM (*CRX) 0.5 MG TABLET 1 MG PO (09:31)
[2021-11-24] MEDS: FOLIC ACID 1 MG TABLET PO (09:31)
[2021-11-24] MEDS: PRAVASTATIN SODIUM 20 MG TABLET PO (09:31)
[2021-11-24] MEDS: VITAMIN B COMPLEX CAPSULE 1 CAP PO (09:33)
[2021-11-24] MEDS: THERAPEUTIC MULTIVITAMINS/MINERALS TAB (*BKC) 1 TABLET PO (09:33)
[2021-11-24] MEDS: amLODIPine BESYLATE 5 MG TABLET PO (09:33)
[2021-11-24] MEDS: CHOLECALCIFEROL 1,000 UNITS TABLET 4000 UNITS PO (09:34)
[2021-11-24 14:00] VITALS: BP 135/68; PULSE 72; RESP 18; TEMP 35.6; O2SAT 99
[2021-11-24 14:06] LABS: Hematocrit 41.1 % (37.0-47.0); Hemoglobin 13.2 g/dL (12.0-15.0)
[2021-11-24] MEDS: MAGNESIUM SULF 2 GM/WATER 50ML 2 GM/50 ML BAG IVPB (14:38)
[2021-11-24] MEDS: HYDROmorphone HCL INJ (*CRX) 1 MG/ML SYR 0.5 MG IV PUSH (17:18)
[2021-11-24 19:49] LABS: Hematocrit 46.5 % (37.0-47.0); Hemoglobin 14.4 g/dL (12.0-15.0)
[2021-11-24] MEDS: PANTOPRAZOLE SODIUM IV 40 MG VIAL IV PUSH (20:06)
[2021-11-24 21:53] VITALS: BP 130/70; PULSE 70; RESP 16; TEMP 36.4; O2SAT 96
[2021-11-25] MEDS: SODIUM CHLORIDE 0.9% IV 1,000 ML 100 ML IV CONT ×2 (03:56→15:58)
[2021-11-25 05:28] VITALS: BP 153/73; PULSE 63; RESP 16; TEMP 36.1; O2SAT 97
[2021-11-25 07:51] LABS: Hematocrit 40.1 % (37.0-47.0); Hemoglobin 13.3 g/dL (12.0-15.0)
--- NOTE | 2021-11-25 08:46 | PM.IMPN ---
Progress Note: A&P Assessment and Plan (1) Sigmoid diverticulitis: Code(s): K57.32 - Diverticulitis of large intestine without perforation or abscess without bleeding Status: Acute Assessment and Plan: Symptoms continue despite outpatient treatment with ciprofloxacin and metronidazole. Given immunocompromised state, was admitted for IV antibiotics. Stool changes as noted in HPI. H&H q.6 hours has been stable. Patient states she incidentally received her 1st infusion Orensia for her RA the week prior to the onset of her current symptoms. She does wonder if this could be linked. Review of drug adverse reactions does show <1% may have severe diverticulitis of the GI tract. Will inform the patient. Continue Zosyn. Patient tolerating diet, will advance diet. Continue Protonix (2) Chronic kidney disease, stage 3: Code(s): N18.30 - Chronic kidney disease, stage 3 unspecified Status: Acute Assessment and Plan: Creatinine is a bit elevated, but improved, likely due to mild dehydration. Continue gentle IV fluid rehydration. (3) Immunocompromised state due to drug therapy: Code(s): D84.821 - Immunodeficiency due to drugs; Z79.899 - Other [facility] (current[facility] drug therapy Status: Acute Assessment and Plan: On conventional and biologic DMARDs Orencia (Abatacept) due to inflammatory arthritis. Methotrexate tomorrow. Will hold zofran. (4) Nonalcoholic steatohepatitis (LOONEY): Code(s): K75.81 - Nonalcoholic steatohepatitis (LOONEY) Status: Acute Assessment and Plan: LFTs are mildly elevated and are at her baseline, per patient report. (5) Benign hypertension: Code(s): I10 - Essential (primary) hypertension Status: Acute Assessment and Plan: Patient is mildly hypertensive blood pressures were reviewed and they are stable. Continue antihypertensives and monitor daily. Subjective Date/time seen: 11/25/21 08:46 Interval history: 66-year-old female with hypertension, hyperlipidemia, chronic kidney disease, non alcoholic steatohepatitis, and rheumatoid arthritis who presented to the emergency department for evaluation of abdominal pain. She denies vomiting, but does have some epigastric pain after drinking sweet tea yesterday. She tolerated her breakfast this morning and is comfortable advancing her diet, which we will do. She has not had to take any pain medication since yesterday. She did have another bowel movement. She has not seen any maxwell red blood in the stool. She states she incidentally received her 1st infusion Orensia for her RA the week prior to the onset of her current symptoms. She does wonder if this could be linked. Review of Systems Review of Systems: All systems reviewed & are unremarkable except as noted in HPI and below Exam Narrative: GENERAL APPEARANCE: Alert and oriented x 3, in no apparent distress. HEENT: PERRL, EOMI. Sclerae anicteric. Moist mucous membranes. NECK: Supple. No JVD or obvious carotid bruits. RESPIRATORY: Respirations are nonlabored. Breath sounds are equal and clear bilaterally. No wheezes, Rhonchi, or rales. CARDIOVASCULAR: Regular rate and rhythm with normal S1-S2. No murmurs, gallops, or rubs. GASTROINTESTINAL: Soft, flat, and benign. No mass, tenderness, guarding, or rebound. No organomegaly or hernia. Bowel sounds are present. SKIN: Warm, dry, well perfused. Good turgor. No lesions, nodules, or rashes noted. EXTREMITIES: No cyanosis, clubbing, or edema. Radial and pedal pulses intact. NEUROLOGICAL: Alert. Cranial nerves 2-12 are grossly intact. No gross focal deficits to casual conversation. PSYCHIATRIC: Pleasant and cooperative with normal mood and affect. Objective Data Vital Signs Vital Signs: Vital Signs - 24 hr 11/24/21 09:31 11/24/21 14:00 11/24/21 21:53 Temperature 96.0 F L 97.5 F L Pulse Rate 72 72 70 Respiratory Rate 18 16
[2021-11-25] MEDS: PANTOPRAZOLE SODIUM IV 40 MG VIAL IV PUSH ×2 (09:01→19:58)
[2021-11-25] MEDS: CHOLECALCIFEROL 1,000 UNITS TABLET 4000 UNITS PO (09:01)
[2021-11-25 09:02] VITALS: PULSE 66
[2021-11-25] MEDS: FOLIC ACID 1 MG TABLET PO (09:02)
[2021-11-25] MEDS: clonazePAM (*CRX) 0.5 MG TABLET 1 MG PO (09:02)
[2021-11-25] MEDS: amLODIPine BESYLATE 5 MG TABLET PO (09:02)
[2021-11-25] MEDS: THERAPEUTIC MULTIVITAMINS/MINERALS TAB (*BKC) 1 TABLET PO (09:02)
[2021-11-25] MEDS: PRAVASTATIN SODIUM 20 MG TABLET PO (09:02)
[2021-11-25] MEDS: METOPROLOL SUCCINATE EXT REL 50 MG TABCR PO (09:02)
[2021-11-25] MEDS: VITAMIN B COMPLEX CAPSULE 1 CAP PO (09:04)
[2021-11-25 09:16] LABS: Basophils Absolute Auto 0.1 K/mm3 (0.0-0.1); Basophils Percent Auto 0.7 % (0.2-1.2); Eosinophils Absolute Auto 0.3 K/mm3 (0-0.3); Eosinophils Percent Auto 4.4 % (0-4.4); Hematocrit 40.6 % (37.0-47.0); Hemoglobin 13.2 g/dL (12.0-15.0); Immature Granulocyte Absolute 0.02 K/mm3 (0.00-0.031); Immature Granulocyte Percent A 0.3 % (0-0.5); Lymphocytes Absolute Auto 1.84 K/mm3 (0.9-3.2); Lymphocytes Percent Auto 26.2 % (18.3-44.2); Mean Corpuscular HGB Conc 32.5 g/dl (32-36); Mean Corpuscular Hemoglobin 31.5 pg (26-34); Mean Corpuscular Volume 96.9 fl (80-100); Mean Platelet Volume 10.8 fl (7.4-10.4); Monocytes Absolute Auto 0.9 K/mm3 (0.1-0.6); Monocytes Percent Auto 13.3 % (2.6-8.5); Neutrophils Absolute Auto 3.9 K/mm3 (1.3-6.7); Neutrophils Percent Auto 55.1 % (45.5-73.1); Platelet Count Result 285 k/mm3 (150-375); Red Blood Count 4.19 M/mm3 (4.2-5.4); Red Cell Distribution Width 14.2 % (11.5-14.5)
[2021-11-25 09:22] LABS: Alanine Aminotransferase 25 U/L (6-35); Albumin Level 3.3 g/dL (3.5-5.1); Alkaline Phosphatase 46 U/L (38-126); Anion Gap 4 mmol/L (8-16); Aspartate Amino Transferase 35 U/L (14-36); Bilirubin,Total 1.1 mg/dL (0.2-1.3); Blood Urea Nitrogen 7 mg/dL (7-17); Carbon Dioxide 24 mmol/L (22-30); Chloride 109 mmol/L (98-107); Estimated CRCL calculation 69 ml/min; Estimated Glomerular Filt Rate > 60; Glucose 89 mg/dL (65-110); Magnesium 1.9 mg/dL (1.6-2.3); Potassium 3.7 mmol/L (3.4-5.0); Sodium 137 mmol/L (137-145)
[2021-11-25 14:00] VITALS: BP 130/70; PULSE 65; RESP 20; TEMP 36.4; O2SAT 100
[2021-11-25] MEDS: CALCIUM CARBONATE (OSCAL) 500 MG TABLET PO (16:00)
[2021-11-25] MEDS: CYPROHEPTADINE HCL 4 MG TABLET BY MOUTH (19:57)
[2021-11-25 22:00] VITALS: BP 141/69; PULSE 62; RESP 18; TEMP 36.6; O2SAT 97
[2021-11-26] MEDS: SODIUM CHLORIDE 0.9% IV 1,000 ML 100 ML IV CONT (02:28)
[2021-11-26 06:00] VITALS: BP 145/67; PULSE 77; RESP 16; TEMP 36.3; O2SAT 97
--- NOTE | 2021-11-26 08:09 | PM.IMPN ---
Progress Note: A&P Assessment and Plan (1) Sigmoid diverticulitis: Code(s): K57.32 - Diverticulitis of large intestine without perforation or abscess without bleeding Status: Acute Assessment and Plan: Patient tolerated her full liquid diet. She has not needed any pain medications for over a day. Patient states she incidentally received her 1st infusion Orensia for her RA the week prior to the onset of her current symptoms. Review of drug adverse reactions does show <1% may have severe diverticulitis of the GI tract. Discussed with patient follow-up with her neon molder about this. Transition to PO antibiotics today and monitor. Patient tolerating diet, will advance diet. Continue Protonix (2) Chronic kidney disease, stage 3: Code(s): N18.30 - Chronic kidney disease, stage 3 unspecified Status: Acute Assessment and Plan: Renal function has normalized, will d/c IV fluids. (3) Immunocompromised state due to drug therapy: Code(s): D84.821 - Immunodeficiency due to drugs; Z79.899 - [facility] ([facility] drug therapy Status: Acute Assessment and Plan: On conventional and biologic DMARDs Orencia (Abatacept) due to inflammatory arthritis. Methotrexate today. (4) Nonalcoholic steatohepatitis (LOONEY): Code(s): K75.81 - Nonalcoholic steatohepatitis (LOONEY) Status: Acute Assessment and Plan: LFTs are mildly elevated and are at her baseline, per patient report. (5) Benign hypertension: Code(s): I10 - Essential (primary) hypertension Status: Acute Assessment and Plan: Patient is mildly hypertensive blood pressures were reviewed and they are stable. Continue antihypertensives and monitor daily. Subjective Date/time seen: 11/26/21 08:09 Interval history: 66-year-old female with hypertension, hyperlipidemia, chronic kidney disease, non alcoholic steatohepatitis, and rheumatoid arthritis who presented to the emergency department for evaluation of abdominal pain. She still has mild pain after she eats, but she states it is not bad enough to request pain medication. She also does have a bowel movement pretty closely following her oral intake. She agrees with advancing her diet today as she is hungry. She denies chest pain, shortness for breath, dizzy, blood in the stool, vomiting. She is due for her biologic infusion on Saturday, and I did discuss the very rare side effect of that particular biologic being diverticulitis. She will further discuss this with her neon molder. Together we decided that she would stay overnight so we may observe her on her outpatient antibiotic therapy and to be sure she does tolerate a low-fat diet. Review of Systems Review of Systems: All systems reviewed & are unremarkable except as noted in HPI and below Exam Narrative: GENERAL APPEARANCE: Alert and oriented x 3, in no apparent distress. HEENT: PERRL, EOMI. Sclerae anicteric. Moist mucous membranes. NECK: Supple. No JVD or obvious carotid bruits. RESPIRATORY: Respirations are nonlabored. Breath sounds are equal and clear bilaterally. No wheezes, Rhonchi, or rales. CARDIOVASCULAR: Regular rate and rhythm with normal S1-S2. No murmurs, gallops, or rubs. GASTROINTESTINAL: Soft, flat, and benign. No mass, tenderness, guarding, or rebound. No organomegaly or hernia. Bowel sounds are present. SKIN: Warm, dry, well perfused. Good turgor. No lesions, nodules, or rashes noted. EXTREMITIES: No cyanosis, clubbing, or edema. Radial and pedal pulses intact. NEUROLOGICAL: Alert. Cranial nerves 2-12 are grossly intact. No gross focal deficits to casual conversation. PSYCHIATRIC: Pleasant and cooperative with normal mood and affect. Objective Data Vital Signs Vital Signs: Vital Signs - 24 hr 11/25/21 09:02 11/25/21 14:00 11/25/21 22:00 Temperature 97.6 F 97.8 F Pulse Rate 66 65 62 Respiratory Rate
[2021-11-26 08:40] LABS: Basophils Percent Auto 0.7 % (0.2-1.2); Eosinophils Absolute Auto 0.3 K/mm3 (0-0.3); Eosinophils Percent Auto 5.5 % (0-4.4); Hemoglobin 12.7 g/dL (12.0-15.0); Immature Granulocyte Absolute 0.02 K/mm3 (0.00-0.031); Immature Granulocyte Percent A 0.4 % (0-0.5); Lymphocytes Absolute Auto 1.76 K/mm3 (0.9-3.2); Lymphocytes Percent Auto 32.4 % (18.3-44.2); Mean Corpuscular HGB Conc 32.6 g/dl (32-36); Mean Corpuscular Hemoglobin 31.1 pg (26-34); Mean Corpuscular Volume 95.6 fl (80-100); Mean Platelet Volume 10.2 fl (7.4-10.4); Monocytes Absolute Auto 0.6 K/mm3 (0.1-0.6); Monocytes Percent Auto 11.6 % (2.6-8.5); Neutrophils Absolute Auto 2.7 K/mm3 (1.3-6.7); Neutrophils Percent Auto 49.4 % (45.5-73.1); Platelet Count Result 308 k/mm3 (150-375); Red Blood Count 4.08 M/mm3 (4.2-5.4); Red Cell Distribution Width 14.2 % (11.5-14.5); White Blood Count 5.4 K/mm3 (4.5-10.0)
[2021-11-26 08:49] LABS: Alanine Aminotransferase 24 U/L (6-35); Albumin Level 3.2 g/dL (3.5-5.1); Alkaline Phosphatase 43 U/L (38-126); Anion Gap 4 mmol/L (8-16); Aspartate Amino Transferase 28 U/L (14-36); Blood Urea Nitrogen 4 mg/dL (7-17); Calcium 8.3 mg/dL (8.4-10.2); Carbon Dioxide 25 mmol/L (22-30); Chloride 110 mmol/L (98-107); Estimated CRCL calculation 70 ml/min; Estimated Glomerular Filt Rate > 60; Glucose 87 mg/dL (65-110); Magnesium 1.6 mg/dL (1.6-2.3); Potassium 3.7 mmol/L (3.4-5.0); Sodium 139 mmol/L (137-145)
[2021-11-26 09:00] VITALS: PULSE 74; O2SAT 97
[2021-11-26] MEDS: CIPROFLOXACIN 500 MG TAB PO ×2 (09:23→20:38)
[2021-11-26] MEDS: METHOTREXATE 2.5 MG TAB (*CHEMO) 10 MG PO (09:23)
[2021-11-26] MEDS: PRAVASTATIN SODIUM 20 MG TABLET PO (09:23)
[2021-11-26] MEDS: CHOLECALCIFEROL 1,000 UNITS TABLET 4000 UNITS PO (09:23)
[2021-11-26 09:24] VITALS: PULSE 74
[2021-11-26] MEDS: THERAPEUTIC MULTIVITAMINS/MINERALS TAB (*BKC) 1 TABLET PO (09:24)
[2021-11-26] MEDS: METOPROLOL SUCCINATE EXT REL 50 MG TABCR PO (09:24)
[2021-11-26] MEDS: VITAMIN B COMPLEX CAPSULE 1 CAP PO (09:24)
[2021-11-26] MEDS: PANTOPRAZOLE SODIUM IV 40 MG VIAL IV PUSH ×2 (09:24→20:39)
[2021-11-26] MEDS: amLODIPine BESYLATE 5 MG TABLET PO (09:24)
[2021-11-26] MEDS: FOLIC ACID 1 MG TABLET PO (09:24)
[2021-11-26] MEDS: clonazePAM (*CRX) 0.5 MG TABLET 1 MG PO (09:32)
[2021-11-26] MEDS: metroNIDAZOLE 250 MG TABLET 500 MG PO ×2 (13:28→20:38)
[2021-11-26] MEDS: CALCIUM CARBONATE (OSCAL) 500 MG TABLET PO ×2 (13:28→17:49)
[2021-11-26 14:00] VITALS: BP 124/60; PULSE 65; RESP 16; TEMP 36.7; O2SAT 98
[2021-11-26 20:00] VITALS: RESP 16; O2SAT 98
[2021-11-26] MEDS: CYPROHEPTADINE HCL 4 MG TABLET BY MOUTH (20:38)
[2021-11-26] MEDS: ACETAMINOPHEN 325 MG TABLET 650 MG PO (20:41)
[2021-11-26 22:00] VITALS: BP 131/60; PULSE 70; RESP 16; TEMP 36.4; O2SAT 96
[2021-11-27 06:00] VITALS: BP 141/65; PULSE 71; RESP 18; TEMP 36.3; O2SAT 97
[2021-11-27] MEDS: metroNIDAZOLE 250 MG TABLET 500 MG PO ×2 (06:05→13:03)
[2021-11-27 08:00] VITALS: O2SAT 97
[2021-11-27] MEDS: CIPROFLOXACIN 500 MG TAB PO (08:19)
[2021-11-27] MEDS: CHOLECALCIFEROL 1,000 UNITS TABLET 4000 UNITS PO (08:19)
[2021-11-27] MEDS: VITAMIN B COMPLEX CAPSULE 1 CAP PO (08:19)
[2021-11-27] MEDS: PANTOPRAZOLE SODIUM IV 40 MG VIAL IV PUSH (08:19)
[2021-11-27 08:20] VITALS: PULSE 72
[2021-11-27] MEDS: THERAPEUTIC MULTIVITAMINS/MINERALS TAB (*BKC) 1 TABLET PO (08:20)
[2021-11-27] MEDS: amLODIPine BESYLATE 5 MG TABLET PO (08:20)
[2021-11-27] MEDS: METOPROLOL SUCCINATE EXT REL 50 MG TABCR PO (08:20)
[2021-11-27] MEDS: FOLIC ACID 1 MG TABLET PO (08:20)
[2021-11-27] MEDS: PRAVASTATIN SODIUM 20 MG TABLET PO (08:20)
[2021-11-27] MEDS: clonazePAM (*CRX) 0.5 MG TABLET 1 MG PO (08:25)
--- NOTE | 2021-11-27 08:48 | PM.DS ---
DS: Admitting Diagnosis Discharge Date 11/27/21 1600 Admitting Diagnosis Diverticulitis DS: Discharge Diagnosis Discharge Diagnosis (1) Sigmoid diverticulitis: Code(s): K57.32 - Diverticulitis of large intestine without perforation or abscess without bleeding Status: Acute Assessment and Plan: Patient tolerated her low fat diet. She has not needed any pain medications. Patient states she incidentally received her 1st infusion Orensia for her RA the week prior to the onset of her current symptoms. Review of drug adverse reactions does show <1% may have severe diverticulitis of the GI tract. Discussed with patient follow-up with her semiautomatic stitcher operator about this. Continue PO antibiotics upon discharge Continue low fat diet Return precautions discussed. PPI outpatient. Recommend repeat labs in 1 week. (2) Chronic kidney disease, stage 3: Code(s): N18.30 - Chronic kidney disease, stage 3 unspecified Status: Acute Assessment and Plan: Renal function has normalized, pt did well with oral rehydration. (3) Immunocompromised state due to drug therapy: Code(s): D84.821 - Immunodeficiency due to drugs; Z79.899 - Other alf (current) drug therapy Status: Acute Assessment and Plan: On conventional and biologic DMARDs Orencia (Abatacept) due to inflammatory arthritis. Follow up with semiautomatic stitcher operator as scheduled for outpatient management. (4) Nonalcoholic steatohepatitis (LOONEY): Code(s): K75.81 - Nonalcoholic steatohepatitis (LOONEY) Status: Acute Assessment and Plan: LFTs are mildly elevated and are at her baseline, per patient report. (5) Benign hypertension: Code(s): I10 - Essential (primary) hypertension Status: Acute Assessment and Plan: Patient is mildly hypertensive blood pressures were reviewed and they are stable. Continue antihypertensives upon discharge DS: Summary Hospital Course Reason for hospitalization: Diverticulitis Hospital Course: See above for full hospital course Status at Discharge Overall status at discharge: patient is progressing back to baseline Time Spent with Patient Time attestation: Total time spent providing and/or coordinating discharge services: 35 minutes Time spent: Greater than 30 minutes Exam Narrative: GENERAL APPEARANCE: Alert and oriented x 3, in no apparent distress. HEENT: PERRL, EOMI. Sclerae anicteric. Moist mucous membranes. NECK: Supple. No JVD or obvious carotid bruits. RESPIRATORY: Respirations are nonlabored. Breath sounds are equal and clear bilaterally. No wheezes, Rhonchi, or rales. CARDIOVASCULAR: Regular rate and rhythm with normal S1-S2. No murmurs, gallops, or rubs. GASTROINTESTINAL: Soft, flat, and benign. No mass, tenderness, guarding, or rebound. No organomegaly or hernia. Bowel sounds are present. SKIN: Warm, dry, well perfused. Good turgor. No lesions, nodules, or rashes noted. EXTREMITIES: No cyanosis, clubbing, or edema. Radial and pedal pulses intact. NEUROLOGICAL: Alert. Cranial nerves 2-12 are grossly intact. No gross focal deficits to casual conversation. PSYCHIATRIC: Pleasant and cooperative with normal mood and affect. DS: Data Data Completed and Pending Labs on day of discharge: Labs from last 24 hours 11/26/21 11/26/21 08:20 08:20 WBC 5.4 RBC 4.08 L Hgb 12.7 Hct 39.0 MCV 95.6 MCH 31.1 MCHC 32.6 RDW 14.2 Plt Count 308 MPV 10.2 Immature Gran % (Auto) 0.4 Neut % (Auto) 49.4 Lymph % (Auto) 32.4 [place] % (Auto) 11.6 H Eos % (Auto) 5.5 H Baso % (Auto) 0.7 Lymph # (Auto) 1.76 [place] # (Auto) 0.6 Eos # (Auto) 0.3 Baso # (Auto) 0.0 Abs Immat Gran (auto) 0.02 Absolute Neuts (auto) 2.7 Absolute Nucleated RBC 0.0 Nucleated RBC % 0.0 Sodium 139 Potassium 3.7 Chloride 110 H Carbon Dioxide 25 Anion Gap 4 L BUN 4 L Creatinine 0.90 [place]
[2021-11-27 09:03] LABS: Basophils Absolute Auto 0.1 K/mm3 (0.0-0.1); Basophils Percent Auto 0.9 % (0.2-1.2); Eosinophils Absolute Auto 0.2 K/mm3 (0-0.3); Eosinophils Percent Auto 4.5 % (0-4.4); Hematocrit 40.9 % (37.0-47.0); Hemoglobin 13.3 g/dL (12.0-15.0); Immature Granulocyte Absolute 0.01 K/mm3 (0.00-0.031); Immature Granulocyte Percent A 0.2 % (0-0.5); Lymphocytes Absolute Auto 1.63 K/mm3 (0.9-3.2); Lymphocytes Percent Auto 30.3 % (18.3-44.2); Mean Corpuscular HGB Conc 32.5 g/dl (32-36); Mean Corpuscular Hemoglobin 31.3 pg (26-34); Mean Corpuscular Volume 96.2 fl (80-100); Mean Platelet Volume 9.6 fl (7.4-10.4); Monocytes Absolute Auto 0.6 K/mm3 (0.1-0.6); Monocytes Percent Auto 11.3 % (2.6-8.5); Neutrophils Absolute Auto 2.8 K/mm3 (1.3-6.7); Neutrophils Percent Auto 52.8 % (45.5-73.1); Platelet Count Result 320 k/mm3 (150-375); Red Blood Count 4.25 M/mm3 (4.2-5.4); Red Cell Distribution Width 14.2 % (11.5-14.5); White Blood Count 5.4 K/mm3 (4.5-10.0)
[2021-11-27 09:17] LABS: Alanine Aminotransferase 33 U/L (6-35); Albumin Level 3.5 g/dL (3.5-5.1); Alkaline Phosphatase 44 U/L (38-126); Anion Gap 5 mmol/L (8-16); Aspartate Amino Transferase 55 U/L (14-36); Bilirubin,Total 0.7 mg/dL (0.2-1.3); Blood Urea Nitrogen 7 mg/dL (7-17); Calcium 8.6 mg/dL (8.4-10.2); Carbon Dioxide 28 mmol/L (22-30); Chloride 107 mmol/L (98-107); Estimated CRCL calculation 70 ml/min; Estimated Glomerular Filt Rate > 60; Glucose 98 mg/dL (65-110); Magnesium 1.5 mg/dL (1.6-2.3); Potassium 3.5 mmol/L (3.4-5.0); Sodium 140 mmol/L (137-145)
[2021-11-27] MEDS: CALCIUM CARBONATE (OSCAL) 500 MG TABLET PO (13:03)
[2021-11-27 14:00] VITALS: BP 121/62; PULSE 64; RESP 20; TEMP 36.4; O2SAT 96
== END 2021-11-27 15:00 | disposition home or self-care (01) | DRG 392 ==
LOC: ANHED 13:41 → ANH3MEDSUR 15:16
PROVIDERS: Emergency Medicine; Physician Assistant; Student in an Organized Health Care Education/Training Program; Admitting Provider Internal Medicine; Emergency Provider Emergency Medicine; PCP Family Medicine; Visit Provider Internal Medicine
DX: K57.32 Diverticulitis of large intestine without perforation or abscess without bleeding (principal); D84.821 Immunodeficiency due to drugs; Z79.899 Other long term (current) drug therapy; I12.9 Hypertensive chronic kidney disease with stage 1 through stage 4 chronic kidney disease, or unspecified chronic kidney disease; N18.30 Chronic kidney disease, stage 3 unspecified; K75.81 Nonalcoholic steatohepatitis (NASH); M06.9 Rheumatoid arthritis, unspecified; K21.9 Gastro-esophageal reflux disease without esophagitis; E78.2 Mixed hyperlipidemia; Z20.822 Contact with and (suspected) exposure to COVID-19; M12.38 Palindromic rheumatism, other specified site; L40.50 Arthropathic psoriasis, unspecified; E86.0 Dehydration; I70.0 Atherosclerosis of aorta; H40.9 Unspecified glaucoma; Z90.49 Acquired absence of other specified parts of digestive tract; Z90.710 Acquired absence of both cervix and uterus
CPT/HCPCS: 36415; 74177; 80053; 81001; 81025; 83605; 83690; 83735; 85014; 85018; 85025; 85027; 86140; 87040; 87086; 96361; 96365; 96366; 96367; 96375; 96376; 99285; A9270; C9113; C9803; G0378; J1170; J2270; J2405; J2543; J3475; J7030; Q9967; U0003; U0005

== ENCOUNTER 2022-02-20 08:00 | Outpatient (NON) | payer MEDICARE, SELFPAY | END 2022-02-20 08:01 | disposition home or self-care (01) | PROVIDERS: PCP Emergency Medicine; Visit Provider Internal Medicine Gastroenterology | DX: K57.92 Diverticulitis of intestine, part unspecified, without perforation or abscess without bleeding (principal); D12.2 Benign neoplasm of ascending colon; D12.5 Benign neoplasm of sigmoid colon | CPT/HCPCS: 88305 ==

== ENCOUNTER 2022-02-20 12:54 | Day surgery (SDC) | payer MEDICARE, SELFPAY ==
[2022-02-01 15:01] VITALS: BMI 34.2
--- NOTE | 2022-02-20 07:19 | WPDANESEPPF ---
Anes - Initial Pre Proc Eval Procedure: Operation Date: 02/20/22 13:30 Proposed Procedures p Diagnostic Colonoscopy - Gee Scherer MD Date/Time: 02/20/22 07:19 Surgeon: Gee Scherer MD Pre Op Diagnosis: Diverticulitis Patient Data Age: 66 Gender: F Height: 1.73 m Weight: 102 kg Allergies Allergy/AdvReac Type Severity Reaction Status Date / Time lisinopril AdvReac Intermediate cough Verified 02/20/22 13:17 Home Medications Medication Instructions Recorded Confirmed Type cholecalciferol (vitamin D3) 100 4,000 unit PO DAILY 07/01/19 02/20/22 History mcg (4,000 unit) capsule vitamin B complex (B 1 tablet PO DAILY 09/21/19 02/20/22 History Complex-Vitamin B12 tablet) folic acid 1 mg tablet 2 mg PO DAILY 12/06/20 02/20/22 History npbmpxfo-qqm-yjlkf ac 400 1 tablet PO DAILY 12/06/20 02/20/22 History mcg-calcium carb 500 mg-vit K1 20 mcg tablet (Women's 50 Plus Multivitamin) methotrexate sodium 2.5 mg tablet See Rx Instructions PO WEEKLY 05/04/21 02/20/22 History spironolactone 25 mg tablet 25 mg PO BID #180 tabs 09/27/21 02/20/22 Rx metoprolol succinate 100 mg 50 mg PO DAILY #90 tabs 10/18/21 02/20/22 Rx tablet,extended release 24 hr sodium sul 1.479 gram-potas ch See Rx Instructions PO PER PKG DIR 12/27/21 02/20/22 Rx 0.188 gram-magnes sul 0.225 gram #24 tabs tablet (Sutab) Orencia 1 dose IV [id number] 02/01/22 02/20/22 History amlodipine 5 mg tablet 5 mg PO HS 02/01/22 02/20/22 History clonazepam 1 mg tablet 1 mg PO HS 02/01/22 02/20/22 History cyproheptadine 4 mg tablet 4 mg PO HS 02/01/22 02/20/22 History pravastatin 20 mg tablet 20 mg PO DAILY #90 tabs 02/01/22 02/20/22 Rx solifenacin 10 mg tablet (Vesicare) 10 mg PO DAILY #10 tabs 02/17/22 02/20/22 Rx Patient hx anesthesia problems: none Family hx anesthesia problems: none Results Review: All pre-operative results and documents have been reviewed as part of the pre-operative evaluation. [facility] Past Medical History Medical History Atherosclerosis of aorta Benign hypertension Chronic kidney disease, stage 3 Diverticulitis Family hx of colon cancer Gastroesophageal reflux disease Immunocompromised state due to drug therapy Mixed hyperlipidemia Nonalcoholic steatohepatitis (LOONEY) Palindromic rheumatism involving lower leg Polyarthritis of multiple sites Rheumatoid arthritis Unspecified glaucoma Surgical History Surgical History History of arthroplasty of right knee (2001) History of cardiac catheterization History of cholecystectomy History of colonoscopy with polypectomy History of hysterectomy History of lateral meniscus repair of left knee (09/2015) History of tonsillectomy (1963) Family History Family History Father Cerebrovascular accident Carcinoma of colon Glaucoma Mother Hypertension Glaucoma Breast cancer Social History Social History Social History: Surrogate decision maker: Gerardo Yoo, spouse. Code status: Full code. Smoking status: Never smoker Alcohol intake: never Substance use: never Substance use type: does not use Living arrangements: with family Spiritual care concerns: No Anes - Eval Final PreProcedure Day of Procedure 02/20/22 07:19 Patient weight: obese Heart: regular rate and rhythm Lungs: clear to auscultation Airway: Mallampati scale class II Neurological: alert and oriented Last oral intake: >/= 8 hours ASA classification: III Emergent: no Anesthetic plan: proceed Anesthesia type and monitoring: general GIVS and standard monitoring Results Review: All pre-operative results and documents have been reviewed as part of the pre-operative evaluation. Informed Consent: The patient's anesthetic plan and its atten
[2022-02-20 13:20] VITALS: BP 161/96; PULSE 98; RESP 20; TEMP 37.2; O2SAT 100; BMI 33.5
[2022-02-20] MEDS: LACTATED RINGERS 1,000 ML 150 ML IV CONT (13:38)
--- NOTE | 2022-02-20 14:16 | PM.HPGS ---
History of Present Illness History of Present Illness Consent: Risks, benefits, and alternatives have been discussed and questions answered. Patient agrees to proceed with procedure. Chief complaint: Diverticulitis Narrative: Audra Yoo is a 66 year old female with previous episode of diverticulitis treated medically, also father with colon cancer. Last colonoscopy 2013 Review of Systems Constitutional: Constitutional: Denies headache(s) and Denies weakness Eyes: Eyes: Denies blurry vision ENT: Reports Normal hearing present, Denies headache(s) and Denies neck pain Cardiovascular: Cardiovascular: Denies chest pain and Denies dyspnea Respiratory: Respiratory: Denies dyspnea Gastrointestinal: Gastrointestinal: Reports no additional gastrointestinal complaints Genitourinary: Genitourinary: Denies dysuria Musculoskeletal: Musculoskeletal: Denies neck pain Integumentary/Breasts: Skin/Breast: Denies dry skin Neurologic: Reports Normal hearing present, Denies headache(s) and Denies weakness Psychiatric: Psychiatric: Denies anxiety Endocrine: Endocrine: Denies change in body appearance Hematologic/Lymphatic: Hematologic/Lymphatic: Denies easy bleeding Allergic/Immunologic: Allergic/Immunologic: Denies urticaria PMFSH Past Medical History Medical History Atherosclerosis of aorta Benign hypertension Chronic kidney disease, stage 3 Diverticulitis Family hx of colon cancer Gastroesophageal reflux disease Immunocompromised state due to drug therapy Mixed hyperlipidemia Nonalcoholic steatohepatitis (LOONEY) Palindromic rheumatism involving lower leg Polyarthritis of multiple sites Rheumatoid arthritis Unspecified glaucoma Surgical History Surgical History History of arthroplasty of right knee (2001) History of cardiac catheterization History of cholecystectomy History of colonoscopy with polypectomy History of hysterectomy History of lateral meniscus repair of left knee (09/2015) History of tonsillectomy (1963) Family History Family History Father Cerebrovascular accident Carcinoma of colon Glaucoma Mother Hypertension Glaucoma Breast cancer Social History Social History Social History: Surrogate decision maker: Gerardo Yoo, spouse. Code status: Full code. Smoking status: Never smoker Alcohol intake: never Substance use: never Substance use type: does not use Living arrangements: with family Spiritual care concerns: No Meds Home Medications and Allergies Home Medications Medication Instructions Recorded Confirmed Type cholecalciferol (vitamin D3) 100 4,000 unit PO DAILY 07/01/19 02/20/22 History mcg (4,000 unit) capsule vitamin B complex (B 1 tablet PO DAILY 09/21/19 02/20/22 History Complex-Vitamin B12 tablet) folic acid 1 mg tablet 2 mg PO DAILY 12/06/20 02/20/22 History khtbqguy-vwk-obucp ac 400 1 tablet PO DAILY 12/06/20 02/20/22 History mcg-calcium carb 500 mg-vit K1 20 mcg tablet (Women's 50 Plus Multivitamin) methotrexate sodium 2.5 mg tablet See Rx Instructions PO WEEKLY 05/04/21 02/20/22 History spironolactone 25 mg tablet 25 mg PO BID #180 tabs 09/27/21 02/20/22 Rx metoprolol succinate 100 mg 50 mg PO DAILY #90 tabs 10/18/21 02/20/22 Rx tablet,extended release 24 hr sodium sul 1.479 gram-potas ch See Rx Instructions PO PER PKG DIR 12/27/21 02/20/22 Rx 0.188 gram-magnes sul 0.225 gram #24 tabs tablet (Sutab) Orencia 1 dose IV [id number] 02/01/22 02/20/22 History amlodipine 5 mg tablet 5 mg PO HS 02/01/22 02/20/22 History clonazepam 1 mg tablet 1 mg PO HS 02/01/22 02/20/22 History cyproheptadine 4 mg tablet 4 mg PO HS 02/01/22 02/20/22 History pravastatin 20 mg tablet 20 mg PO DAILY #90 tabs 02/01/22 02/20/22 Rx solifenacin
[2022-02-20 14:41] VITALS: BP 136/77; PULSE 79; RESP 16; O2SAT 97
[2022-02-20 14:51] VITALS: BP 139/76; PULSE 72; RESP 20; O2SAT 99
[2022-02-20 15:01] VITALS: BP 124/65; PULSE 63; RESP 16; O2SAT 99
--- NOTE | 2022-02-20 15:29 | WPDANESPN ---
Anes - Prog Note Post-Op Date/Time: 02/20/22 15:29 Cardiovascular status: normal Respiratory status: normal Airway patency: baseline Mental status: baseline Post-Op hydration status: normal Vital Signs: Last Vital Signs Temp 37.2 C 02/20/22 13:20 Pulse 63 02/20/22 15:01 Resp 16 02/20/22 15:01 BP 124/65 02/20/22 15:01 Pulse Ox 99 02/20/22 15:01 O2 Del Method Room Air 02/20/22 15:01 Pain Score (VAS): 0 I/O: Intake & Output 02/19/22 02/20/22 02/20/22 23:59 07:59 15:59 Intake Total 300 Balance 300 Post-procedural complaints: none Patient Feedback: Patient satisfied with anesthetic care. Other Findings: Patient vital signs back to baseline. Patient denies nausea and vomiting. Patient's pain under control. Patient OK for discharge.
== END 2022-02-20 15:15 | disposition home or self-care (01) ==
PROVIDERS: Visit Provider Internal Medicine Gastroenterology
PROC: 0DJD8ZZ Inspection of Lower Intestinal Tract, Via Natural or Artificial Opening Endoscopic (ICD-10-PCS; CPT 45378; principal; 2022-02-20 13:30)
DX: Z80.0 Family history of malignant neoplasm of digestive organs (principal); K57.92 Diverticulitis of intestine, part unspecified, without perforation or abscess without bleeding
CPT/HCPCS: 45385; 45380

== ENCOUNTER 2022-02-21 13:01 | Outpatient (CLI) | payer MEDICARE, SELFPAY ==
[2022-02-21 21:07] LABS: Appearance Urine Turbid (Clear); Bilirubin Urine Negative (Negative); Blood Urine 1+ (Negative); Color Urine Yellow (Yellow); Glucose Urine UA Negative (Negative); Ketones Urine Trace mg/dL (Negative); Leukocyte Esterase Ur 3+ LEU/UL (Negative); Nitrate Urine Positive (Negative); Protein Urine 1+ mg/dL (Negative); Specific Grav Ur >= 1.030 (1.001-1.035); Urobilinogen Urine 0.2 mg/dL (<2.0); pH Urine 5.5 (5.0-9.0)
[2022-02-21 21:22] LABS: Bacteria Urine 2+ /hpf; Calcium Oxalate Crystals Urine Present /hpf; Mucus Urine Rare /lpf; RBC Urine 21-50 /hpf (0-2); Squamous Epithelial Cell Urine Moderate /hpf (Few); WBC Urine >75 /hpf
[2022-02-21 21:23] LABS: Add Urine Microscopic? YES
== END 2022-02-21 13:02 | disposition home or self-care (01) ==
LOC: ANHGOSHLAB 13:06
PROVIDERS: PCP Emergency Medicine; Visit Provider Physician Assistant
DX: N39.0 Urinary tract infection, site not specified (principal)
CPT/HCPCS: 81001; 87077; 87086; 87186

== ENCOUNTER → 2022-03-14 13:14 | Outpatient (CLI) | payer MEDICARE, SELFPAY ==
--- NOTE | ~2022-03-14 | CT_ITS ---
EXAMINATION: CT abdomen pelvis wo con DATE: 03/14/2022 13:30 INDICATION: Right flank pain nausea. Recent bladder infection. Loss of appetite. TECHNIQUE: Computed tomography (CT) of the abdomen and pelvis was performed without intravenous contr ast. Automated exposure control and iterative reconstruction technique were employed. Exam dose: 829 .83 mGy-cm total exam DLP. COMPARISON: 11/23/2021 CT abdomen pelvis FINDINGS: There is chronic discoid scarring in the left lung base, anterior basilar left lower lobe. The lung bases are clear of infiltrate or consolidation. Normal heart size. No pericardial or pleural effusion. Status post cholecystectomy. No bile duct or pancreatic duct dilatation. No hepatic, splenic or pancreatic space-occupying mass lesion. No pancreatic calcification. Normal morphology of the adrenal glands. 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 No renal mass lesion is detected. N o urinary tract calculus or hydroureteronephrosis. The urinary bladder is unremarkable. Status post hysterectomy. Normal caliber of the abdominal aorta, with calcification. No intraperitoneal or retroperitoneal or pelvic mass lesion or lymphadenopathy. No ascites. Normal appendix. There are numerous diverticula of the sigmoid colon; no evidence of diverticulitis. No bowel obstruction or intraperitoneal free air. Small fat-containing umbilical hernia. There is fusion at L4-5 disc space and severe degenerative disc disease at L5-S1. Osteopenia. No suspicious osteolytic or osteoblastic lesions are noted. IMPRESSION: Normal appendix Diverticulosis of the sigmoid colon; no CT evidence of diverticulitis; resolution of sigmoid divertic ulitis since 11/23/2021 Duplicated right kidney No urinary tract calculus or hydroureteronephrosis Status post cholecystectomy Status post hysterectomy. Reviewed, dictated and finalized at [facility]. Reviewed, dictated and finalized at [facility]. IMPRESSION: Normal appendix Diverticulosis of the sigmoid colon; no CT evidence of diverticulitis; resoluti on of sigmoid diverticulitis since 11/23/2021 Duplicated right kidney No urinary tract calculus or hydroureteronephrosis Status post cholecystectomy Status post hysterectomy.
== END ==
PROVIDERS: PCP Emergency Medicine; Visit Provider Physician Assistant
DX: R10.9 Unspecified abdominal pain (principal); K57.90 Diverticulosis of intestine, part unspecified, without perforation or abscess without bleeding; Q63.0 Accessory kidney; Z90.49 Acquired absence of other specified parts of digestive tract; Z90.710 Acquired absence of both cervix and uterus
CPT/HCPCS: 74176

== ENCOUNTER → 2022-04-02 12:24 | Outpatient (CLI) | payer MEDICARE, SELFPAY ==
--- NOTE | ~2022-04-02 | XR_ITS ---
EXAMINATION: XR ribs BI 3V w CXR 2V DATE: 04/02/2022 12:41 INDICATION: Right rib pain. TECHNIQUE: Frontal and lateral views of the chest and 2 views on 3 radiographs of the right ribs and 2 views on 3 radiographs of the left ribs were obtained. COMPARISON: Chest 2 views 04/02/2015, CT abdomen and pelvis 03/14/2022 FINDINGS: CHEST TWO VIEWS: The chest demonstrates clear lungs without pneumonia, pleural effusion, or pneumotho rax. The heart size is normal. Surgical clips in the right upper quadrant are likely from cholecystec emeka. BILATERAL RIBS: There is no rib fracture. IMPRESSION: 1. No rib fracture. Reviewed, dictated and finalized at [facility]. IMPRESSION: 1. No rib fracture.
== END ==
PROVIDERS: PCP Emergency Medicine; Visit Provider Emergency Medicine
DX: R07.81 Pleurodynia (principal)
CPT/HCPCS: 71046; 71110

== ENCOUNTER 2022-05-07 12:13 | Outpatient (CLI) | payer MEDICARE, SELFPAY ==
[2022-05-07 18:41] LABS: Add Urine Microscopic? YES; Appearance Urine Cloudy (Clear); Bacteria Urine Trace /hpf; Bilirubin Urine Negative (Negative); Blood Urine Negative (Negative); Calcium Oxalate Crystals Urine Present /hpf; Color Urine Yellow (Yellow); Glucose Urine UA Negative (Negative); Ketones Urine Negative (Negative); Leukocyte Esterase Ur 2+ LEU/UL (Negative); Mucus Urine Rare /lpf; Nitrate Urine Negative (Negative); Protein Urine Negative (Negative); Specific Grav Ur 1.015 (1.001-1.035); Squamous Epithelial Cell Urine Occasional /hpf (Few); Urobilinogen Urine Negative mg/dL (<2.0); WBC Urine >75 /hpf
== END 2022-05-07 12:14 | disposition home or self-care (01) ==
LOC: ANHGOSHLAB 12:15
PROVIDERS: PCP Emergency Medicine; Visit Provider Emergency Medicine
DX: N39.0 Urinary tract infection, site not specified (principal)
CPT/HCPCS: 81001; 87077; 87086; 87186

== ENCOUNTER 2022-05-18 09:59 | Outpatient (CLI) | payer MEDICARE, SELFPAY ==
[2022-05-18 19:28] LABS: Appearance Urine Cloudy (Clear); Bilirubin Urine Negative (Negative); Blood Urine Negative (Negative); Color Urine Yellow (Yellow); Glucose Urine UA Negative (Negative); Ketones Urine Negative (Negative); Leukocyte Esterase Ur 1+ LEU/UL (Negative); Nitrate Urine Negative (Negative); Protein Urine Negative (Negative); Specific Grav Ur >= 1.030 (1.001-1.035); Urobilinogen Urine 0.2 mg/dL (<2.0); pH Urine 5.5 (5.0-9.0)
[2022-05-18 19:33] LABS: Bacteria Urine Trace /hpf; Calcium Oxalate Crystals Urine Present /hpf; Mucus Urine Rare /lpf; Squamous Epithelial Cell Urine Many /hpf (Few); WBC Urine 16-20 /hpf
[2022-05-18 19:34] LABS: Add Urine Microscopic? YES
== END 2022-05-18 10:00 | disposition home or self-care (01) ==
LOC: ANHGOSHLAB 10:04
PROVIDERS: PCP Emergency Medicine; Visit Provider Emergency Medicine
DX: N39.0 Urinary tract infection, site not specified (principal)
CPT/HCPCS: 81001; 87077; 87086; 87088

== ENCOUNTER 2022-07-18 13:59 | Outpatient (CLI) | payer MEDICARE, SELFPAY ==
--- NOTE | ~2022-07-18 | MM_ITS ---
EXAMINATION: MM screening rodri BI w arya HISTORY: Screening mammogram, family history of breast cancer in her mother. TECHNIQUE: Craniocaudal and mediolateral oblique 3-D tomosynthesis images were obtained and synthetic 2-D images were generated. CAD analysis was submitted and interpreted. COMPARISON: 05/30/2021, 01/29/2020, 09/10/2018 BREAST PARENCHYMAL COMPOSITION: There are scattered areas of fibroglandular density. FINDINGS: No suspicious mass, calcification, or architectural distortion are identified in either gabrielle ast to suggest malignancy. There has been no suspicious interval change. IMPRESSION: 1. No mammographic evidence of malignancy. 2. Recommend routine screening mammography in one year. BI-RADS Category 1: Negative Reviewed, dictated and finalized at location [facility]. LITY MECHANIC
== END 2022-07-18 14:00 | disposition home or self-care (01) ==
LOC: ANHIMG 14:01
PROVIDERS: PCP Emergency Medicine; Visit Provider Obstetrics & Gynecology
DX: Z12.31 Encounter for screening mammogram for malignant neoplasm of breast (principal)
CPT/HCPCS: 77063; 77067

== ENCOUNTER → 2022-08-07 09:12 | Outpatient (CLI) | payer MEDICARE, SELFPAY ==
--- NOTE | ~2022-08-07 | XR_ITS ---
Supine and upright views of the abdomen Clinical history: Kidney stone Findings: Bowel gas pattern is nonspecific. No evidence for obstruction or free air. No abnormal mass lesion or calcification is seen. Cholecystectomy clips present. Osseous structures are intact. Impression: No significant abnormality is seen. Reviewed, dictated and finalized at [facility]. TREE FARMER Impression: No significant abnormality is seen.
--- NOTE | ~2022-08-07 | CT_ITS ---
Non-contrast CT scan of the Abdomen and Pelvis Clinical indication: Kidney stone Technique: 5 mm axial scans were obtained through the abdomen and pelvis without intravenous or oral contrast. Dose reduction technique was used on this scan by utilizing automated exposure control and iterative reconstruction technique. The dose-length product (DLP) was 1047.04 mGy-cm. COMPARISON: 03/14/2022 Findings: Images through the lung bases reveal no abnormalities. Punctate nonobstructing left renal stone seen at the lower pole and coronal images. No ureteral stone . The kidneys and the ureters are nondilated. Stable probable partial duplication of the right renal collecting system. The liver, spleen, pancreas, and adrenals appear normal. Cholecystectomy clips are present. There is no aortic aneurysm. There is no evidence of bowel obstruction. Normal appendix. Images through the pelvis were performed. There is no evidence of ascites or lymphadenopathy. Urinary bladder unremarkable. Prostate gland and seminal vesicles are unremarkable. Impression: Punctate nonobstructing left lower pole renal stone. Reviewed, dictated and finalized at location . CH RENTAL MANAGER Impression: Punctate nonobstructing left lower pole renal stone.
== END ==
PROVIDERS: PCP Emergency Medicine; Visit Provider Nurse Practitioner Family
DX: N20.0 Calculus of kidney (principal)
CPT/HCPCS: 74018; 74176

== ENCOUNTER → 2023-02-07 12:05 | Outpatient (CLI) | payer MEDICARE, SELFPAY ==
--- NOTE | ~2023-02-07 | XR_ITS ---
Clinical Indication: Shortness of breath PA and lateral views of the chest: Comparison: 03/31/2022 Findings: The lungs are clear, without evidence of focal consolidation or pleural effusion. Cardiome diastinal silhouette is within normal limits. Bones and soft tissues are unremarkable. Impression: Normal chest. Reviewed, dictated and finalized at location . Impression: Normal chest.
== END ==
PROVIDERS: PCP Emergency Medicine; Visit Provider Emergency Medicine
DX: J40 Bronchitis, not specified as acute or chronic (principal); R06.02 Shortness of breath
CPT/HCPCS: 71046

== ENCOUNTER 2023-04-02 06:33 | Outpatient (CLI) | payer MEDICARE, SELFPAY ==
--- NOTE | ~2023-04-02 | CT_ITS ---
Clinical Indication: Adverse effect of antineoplastic and immunosuppressant drugs CT Scan of the Chest with Contrast: Technique: Contiguous sections were acquired throughout the chest after intravenous administration of 75 cc of Omnipaque 350. Dose reduction technique was used on this scan by utilizing automated exposu re control and iterative reconstruction technique. The dose-length product (DLP) was 317.07 mGy-cm. Findings: There is no evidence of any significant mediastinal, hilar or axillary lymphadenopathy. There is no f illing defect in the pulmonary arterial tree to suggest pulmonary embolus. There is no evidence of ao rtic dissection or aneurysm. There is no evidence of pleural or pericardial effusion. The lungs are clear. No pulmonary nodules or infiltrates are noted. Images through the upper abdomen reveal cholecystectomy clips. Impression: Unremarkable exam. Reviewed, dictated and finalized at [facility]. Impression: Unremarkable exam.
[2023-04-02 07:08] LABS: Estimated Glomerular Filt Rate > 60
== END 2023-04-02 06:34 | disposition home or self-care (01) ==
PROVIDERS: PCP Emergency Medicine; Visit Provider Emergency Medicine
DX: R06.02 Shortness of breath (principal); T45.1X5A Adverse effect of antineoplastic and immunosuppressive drugs, initial encounter
CPT/HCPCS: 71260; Q9967

== ENCOUNTER 2023-04-22 16:10 | Observation (INO) | payer MEDICARE, SELFPAY ==
[2023-04-22] VITALS (15 sets, daily range): BP systolic 130–153; BP diastolic 76–99; PULSE 72–127; RESP 12–24; TEMP 36.8; O2SAT 95–100; BMI 34.5
--- NOTE | ~2023-04-22 | XR_ITS ---
EXAMINATION: XR chest 2V Exam Date/Time: 04/22/2023 16:33 CDT HISTORY: shortness of breath Comparison: 02/07/23. RESULT: Lines, tubes, and devices: Cholecystectomy clips. Lungs and pleura: Clear. Cardiomediastinal silhouette: Stable. Other: No acute osseous or upper abdominal finding. IMPRESSION: No acute cardiopulmonary process. Reviewed, dictated and finalized at location [facility].
--- NOTE | ~2023-04-22 | XR_ITS ---
Cervical Spine: AP, lateral, open-mouth views Clinical History: Pain Findings: The normal lordotic curve is maintained. No fracture identified. 2 mm anterolisthesis of C3 over C4 present. There is advanced degenerative disc narrowing at C4-C5 and C6-C7, with moderate deg enerative disc narrowing at C5-C6. There are mild facet joint degenerative changes in the cervical sp ine. Pre-vertebral soft tissues are unremarkable. Impression: Mild to moderate degenerative spondylosis, as above. 2 mm anterolisthesis of C3 over C4. Reviewed, dictated and finalized at location M. Impression: Mild to moderate degenerative spondylosis, as above. 2 mm anterolisthesis of C3 over C4.
--- NOTE | ~2023-04-22 | CT_ITS ---
EXAMINATION: CT brain wo con DATE: 04/22/2023 17:19 INDICATION: neurological changes . TECHNIQUE: Computed tomography (CT) of the head was performed without intravenous contrast. The mA wa s adjusted according to patient size. Iterative reconstruction technique was employed. The dose-lengt h product was 605.33 mGy-cm. COMPARISON: None. FINDINGS: No acute intracranial hemorrhage or extra-axial fluid collection. No hydrocephalus, mass, or herniation. No acute ischemic infarct. Unremarkable dural venous sinus attenuation. No acute osseous abnormality. The aerated spaces are clear. IMPRESSION: No acute intracranial process. Reviewed, dictated and finalized at location K.
--- NOTE | ~2023-04-22 | NM_ITS ---
EXAMINATION: NM félix stress w perfusion DATE: 04/25/2023 11:16 INDICATION: Dyspnea on exertion. TECHNIQUE: Rest images were obtained following intravenous administration of 11.7 mCi Tc99m tetrofosm in (Myoview). The patient was infused intravenously with Lexiscan (regadenoson). Then, 33.9 mCi Tc99m tetrofosmin (Myoview) was administered intravenously, and stress images were obtained. Data was rey nstructed into short axis and horizontal and vertical long axis SPECT images. Gated SPECT images were also obtained. COMPARISON: Chest CT 04/02/2023 FINDINGS: There is no definite reversible or fixed perfusion abnormality to suggest ischemia or infar ction. There is no segmental wall motion abnormality. Left ventricular ejection fraction measures 7 0%. IMPRESSION: 1. No definite ischemia or infarct. 2. Normal left ventricular ejection fraction measuring 70%. Reviewed, dictated and finalized at location A.
--- NOTE | 2023-04-22 16:27 | ED.SOB ---
HPI - SOB/Dyspnea General Chief Complaint: Shortness of Breath/Dyspnea Stated Complaint: sob Time Seen by Provider: 04/22/23 16:26 History of Present Illness HPI Narrative: Patient is a 68 year old female with history of RA, HTN here with shortness of breath. Patient notes that she has been short of breath for the last several years however it seems to have worsened in the last 2 weeks. She denies associated chest pain. She has seen her PCP who performed an outpatient chest CT which was normal. She has been referred for an echo and pulmonary function tests which have a 2 week delay for appointment. She notes that last night she began having a weird feeling in her bilateral upper extremities including tingling, weakness and a burning sensation. These symptoms have been present since yesterday and constant. She denies prior cardiac history or history of CHF. She takes multiple antihypertensives including HCTZ. She takes several medications for her RA including monthly infusions, methotrexate, sulfasalazine, and a current course of prednisone. She denies cough, congestion, fever, chills. Related Data Home Medications Medication Instructions Recorded Confirmed cholecalciferol (vitamin D3) 100 4,000 unit PO DAILY 07/01/19 03/27/23 mcg (4,000 unit) capsule vitamin B complex (B 1 tablet PO DAILY 09/21/19 03/27/23 Complex-Vitamin B12 tablet) folic acid 1 mg tablet 2 mg PO DAILY 12/06/20 03/27/23 hqiaacfe-ewd-snwsd ac 400 1 tablet PO DAILY 12/06/20 03/27/23 mcg-calcium carb 500 mg-vit K1 20 mcg tablet (Women's 50 Plus Multivitamin) methotrexate sodium 2.5 mg tablet See Rx Instructions PO WEEKLY 05/04/21 03/27/23 sulfasalazine 500 mg tablet 0.5 g PO BID 03/27/23 03/27/23 Allergies Allergy/AdvReac Type Severity Reaction Status Date / Time lisinopril AdvReac Intermediate cough Verified 03/27/23 14:02 Review of Systems Review of Systems: All systems reviewed & are unremarkable except as noted in HPI and below PMFSH Past Medical History Medical History Atherosclerosis of aorta Benign hypertension Chronic kidney disease, stage 3 Diverticulitis Family hx of colon cancer Gastroesophageal reflux disease Immunocompromised state due to drug therapy Mixed hyperlipidemia Nonalcoholic steatohepatitis (LOONEY) Palindromic rheumatism involving lower leg Polyarthritis of multiple sites Rheumatoid arthritis Unspecified glaucoma Surgical History Surgical History History of arthroplasty of right knee (2001) History of cardiac catheterization History of cholecystectomy History of colonoscopy with polypectomy History of hysterectomy History of lateral meniscus repair of left knee (09/2015) History of tonsillectomy (1963) Family History Family History Father Cerebrovascular accident Carcinoma of colon Glaucoma Mother Hypertension Glaucoma Breast cancer Social History Social History Social History: Surrogate decision maker: Gerardo Yoo, spouse. Code status: Full code. Smoking status: Never smoker Alcohol intake: never Substance use: never Substance use type: does not use Lack of Transportation: No Lack of Food: Never True Current Housing: I Have Housing Concerned About Future Housing: No Difficulty Paying Gas/Electric Bills: No Difficulty Paying for Meds: No Currently Unemployed: No Education: Associate Degree Difficulty w/ Childcare or Family Care: No Living arrangements: with family Occupation/Education: retired Spiritual care concerns: No Exam Narrative: GENERAL: Well-appearing, well-nourished, and in no acute distress. HEAD: Normocephalic, atraumatic. EYES: PERRLA and EOMI. ENT: Nares clear. Mucous membranes moist. NECK: Supple. CHEST: Clear to
--- NOTE | 2023-04-22 16:30 | ECG_ITS ---
Measurements Intervals [place] Rate: 91 P: 50 MS: 147 QRS: -50 QRSD: 90 T: 31 QT: 346 QTc: 428 Interpretive Statements SINUS RHYTHM MARKED LEFT AXIS DEVIATION [QRS AXIS < -30] VOLTAGE CRITERIA FOR LVH [MEETS CRITERIA IN ONE OF: R(aVL), S(V1), R(V5), R(V5/V6)+S(V1)] POOR R-WAVE PROGRESSION NO PREVIOUS ECG AVAILABLE FOR COMPARISON Electronically Signed On 04-23-2023 15:54:23 CDT by Ilya Ndiaye M.D.
[2023-04-22 17:10] LABS: Basophils Absolute Auto 0.1 K/mm3 (0.0-0.1); Basophils Percent Auto 0.6 % (0.2-1.2); Eosinophils Percent Auto 0.1 % (0-4.4); Hematocrit 40.6 % (37.0-47.0); Hemoglobin 13.7 g/dL (12.0-15.0); Immature Granulocyte Absolute 0.04 K/mm3 (0.00-0.031); Immature Granulocyte Percent A 0.5 % (0-0.5); Lymphocytes Absolute Auto 1.03 K/mm3 (0.9-3.2); Lymphocytes Percent Auto 12.2 % (18.3-44.2); Mean Corpuscular HGB Conc 33.7 g/dl (32-36); Mean Corpuscular Hemoglobin 32.5 pg (26-34); Mean Corpuscular Volume 96.4 fl (80-100); Mean Platelet Volume 9.6 fl (7.4-10.4); Monocytes Absolute Auto 0.5 K/mm3 (0.1-0.6); Monocytes Percent Auto 5.6 % (2.6-8.5); Neutrophils Absolute Auto 6.9 K/mm3 (1.3-6.7); Platelet Count Result 317 k/mm3 (150-375); Red Blood Count 4.21 M/mm3 (4.2-5.4); Red Cell Distribution Width 14.6 % (11.5-14.5); White Blood Count 8.5 K/mm3 (4.5-10.0)
[2023-04-22 17:19] LABS: Alanine Aminotransferase 33 U/L (6-35); Albumin Level 4.5 g/dL (3.5-5.1); Alkaline Phosphatase 58 U/L (38-126); Anion Gap 12 mmol/L (8-16); Aspartate Amino Transferase 36 U/L (14-36); Bilirubin,Total 1.2 mg/dL (0.2-1.3); Blood Urea Nitrogen 17 mg/dL (7-17); Calcium 10.1 mg/dL (8.4-10.2); Carbon Dioxide 23 mmol/L (22-30); Chloride 103 mmol/L (98-107); Estimated CRCL calculation 67 ml/min; Estimated Glomerular Filt Rate > 60; Glucose 137 mg/dL (65-110); Lipase 304 U/L (23-300); Potassium 3.7 mmol/L (3.4-5.0); Sodium 138 mmol/L (137-145)
[2023-04-22 17:29] LABS: Troponin I < 0.012 ng/mL (0.000-0.034)
[2023-04-22 17:37] LABS: Partial Thromboplastin Time 24.8 SECONDS (22.3-36.8); Prothrombin Time 13.5 Seconds (11.1-14.7)
[2023-04-22 18:18] LABS: NT Pro B Type Natriuretic Pept 72 pg/mL (19.9-100)
--- NOTE | 2023-04-22 20:33 | PM.IMHP ---
H&P: HPI History of Present Illness Date/Time: 04/22/23 19:10 Chief Complaint: Shortness of breath. Narrative: This is a pleasant 68-year-old female with rheumatoid arthritis, chronic kidney disease, hypertension, hyperlipidemia, and non-alcoholic steatohepatitis who presented to the emergency department via private vehicle for evaluation of shortness of breath. The patient provides the following history. She endorses shortness of breath with exertion for quite some time however it has been worse in the last 2 to 3 weeks. She is now getting short of breath when walking from room to room and family members have noticed that she is short of breath even with conversation. She saw her doctor several weeks ago for these complaints and several tests were ordered for workup to include pulmonary function tests, chest CT to rule out pulmonary disease related to rheumatoid arthritis, and an echocardiogram. Chest CT did not show any acute findings or findings to suggest PE. Echocardiogram and pulmonary function tests are still pending. She came in today for evaluation after an episode last evening where she suddenly ?felt weird? with weakness and tingling in her upper extremities. She also reports feeling lightheaded when though symptoms occurred. She denies fever, chills, sweats, sinus congestion, sore throat, dysphagia, concerns for aspiration, exertional chest pain, pleuritic pain, palpitations, racing heart, orthopnea, paroxysmal nocturnal dyspnea, and current lower extremity edema although she does have intermittent swelling in her ankles. No anxiety. She is not a smoker and denies exposure to smoke and other environmental hazards. Vital signs have been stable since arrival to the emergency department. Her workup has been pretty unremarkable. She is being admitted however for further observation and workup as she gets quite dyspneic with minimal movement. Review of Systems Review of Systems: Twelve systems were reviewed and are negative except for as per HPI. [facility] Past Medical History Medical History (Updated 04/22/23 @ 20:41 by Amanda Castillo PA-C) Atherosclerosis of aorta Benign hypertension Chronic kidney disease, stage 3 Diverticulitis Gastroesophageal reflux disease Immunocompromised state due to drug therapy Mixed hyperlipidemia Nonalcoholic steatohepatitis (LOONEY) Rheumatoid arthritis Unspecified glaucoma Surgical History Surgical History History of arthroplasty of right knee (2001) History of cardiac catheterization History of cholecystectomy History of colonoscopy with polypectomy History of hysterectomy History of lateral meniscus repair of left knee (09/2015) History of tonsillectomy (1963) Family History Family History Father Cerebrovascular accident Carcinoma of colon Glaucoma Mother Hypertension Glaucoma Breast cancer Social History Social History (Updated 04/22/23 @ 20:37 by Amanda Castillo PA-C) Social History: Surrogate decision maker: Gerardo Yoo, spouse. Code status: Full code. Smoking status: Never smoker Alcohol intake: never Substance use: never Substance use type: does not use Lack of Transportation: No Lack of Food: Never True Current Housing: I Have Housing Concerned About Future Housing: No Difficulty Paying Gas/Electric Bills: No Difficulty Paying for Meds: No Currently Unemployed: No Education: High School Diploma/GED Difficulty w/ Childcare or Family Care: No Living arrangements: with family Occupation/Education: retired Spiritual care concerns: No Meds Home Medications and Allergies Home Medications Medication Instructions Recorded Confirmed Type cholecalciferol (vitamin D3) 100 4,000 unit PO DAILY 07/01/19 04/22/23 History mcg (4,000 unit) capsule vitamin B complex (B 1 tablet PO DAILY 09/21/19 04/22/23 History
[2023-04-22 20:44] LABS: Troponin I 0.014 ng/mL (0.000-0.034)
[2023-04-22 21:02] LABS: Alveolar/Arterial O2 Gradient 30.3 mmHg; Base Excess ABG 1.7 mEq/l (+/-2.0); Carboxyhemoglobin 1.5 % THb (0-2.0); Fractional Inspired Oxygen 21 %; HCO3 ABG 24.2 mEq/l (22.0-26.0); Methemoglobin ABG 0.4 %THb (0-1.5); Oxygen Saturation ABG 96.9 % (95.0-100.0); Oxyhemoglobin 94.5 % THb (90.0-100.0); PO2 ABG 81.1 mmHg (80.0-100.0); PO2 FiO2 Ratio Arterial Blood 3.86 %; Reduced Hemoglobin 3.6 %THb (0-5.0); Total Hemoglobin 14.3 g/dL (12.0-18.0); pH ABG 7.496 (7.350-7.450)
[2023-04-22 21:03] LABS: Device ROOM AIR; Modified Allen's Test Pass; Site Drawn RIGHT RADIAL
--- NOTE | 2023-04-22 21:30 | ADMGEN ---
This patient, Audra Yoo, was admitted to Medical Room 254-01. Patient/family oriented to hospital policies and general routines including ID bracelet, bed and alarms, visiting hours, pain management, procedures, bathroom and other care routines, personal items, smoking policy, room service/diet, and visiting hours. Information on how to activate the Rapid Response Team has been discussed. Patient/Family are encouraged to report perceived risks to care and to ask questions if they do not understand what they are told or what they should do.
[2023-04-22 23:50] LABS: Troponin I < 0.012 ng/mL (0.000-0.034)
[2023-04-23] VITALS (12 sets, daily range): BP systolic 125–130; BP diastolic 68–73; PULSE 63–91; RESP 16–20; TEMP 36.3–37.1; O2SAT 94–98
--- NOTE | 2023-04-23 | ECHO_ITS ---
Patient Info Name: Audra Yoo Age: 68 years : 1955 Gender: Female Ht: 68 in Wt: 227 lbs BSA: 2.26 m2 HR: 65 bpm BP: 129 / 68 mmHg Heart Rhythm: Sinus Rhythm Technical Quality: Good Exam Date: 04/23/2023 10:58 AM Exam Location: [facility] Pulmonary Patient Status: Outpatient Admit Date: 04/22/2023 Staff Ordering Physician: Amanda Castillo PA-C Au Pair: Rajeev Srivastava RDCS Attending Provider: Srinivasa Brantley MD Referring Physician: Jonathan BELTRE; Exam Type: CA echo doppler color flow Study Info Indications - SOB, HTN, HLD Complete two-dimensional, color flow and Doppler transthoracic echocardiogram is performed. Summary 1. Complete two-dimensional, color flow and Doppler transthoracic echocardiogram is performed. 2. Left ventricular chamber dimension is normal. 3. Left ventricular systolic function is normal, estimated at 65-70%. 4. There is mildly increased left ventricular wall thickness. 5. The left ventricular diastolic function is grade I diastolic dysfunction. 6. Left atrial chamber dimension is mildly enlarged. 7. There is mild tricuspid valve regurgitation. 8. There is mild pulmonic regurgitation. Left Ventricle Left ventricular chamber dimension is normal. Left ventricular systolic function is normal, estimated at 65-70%. There is mildly increased left ventricular wall thickness. The left ventricular diastolic function is grade I diastolic dysfunction. Right Ventricle Right ventricular chamber dimension is normal. Right ventricular systolic function is normal. Left Atria Left atrial chamber dimension is mildly enlarged. Right Atria Right atrial chamber dimension is normal. Atrial Septum Intact interatrial septum visualized by color flow imaging. Aortic Valve The aortic valve is trileaflet. There is mild aortic valve sclerosis. There is no aortic valve stenosis. There is trace aortic valve regurgitation. Pulmonic Valve The pulmonic valve is normal. There is no pulmonic valve stenosis. There is mild pulmonic regurgitation. Mitral Valve The mitral valve has normal leaflets. There is no mitral valve stenosis. There is trace mitral valve regurgitation. Tricuspid Valve The tricuspid valve leaflets are normal. There is no significant tricuspid valve stenosis. There is mild tricuspid valve regurgitation. No pulmonary hypertension, estimated pulmonary arterial systolic pressure is 31 mmHg. Pericardium/Pleural The pericardium appears epicardial fat pad. There is trivial pericardial effusion. Inferior Vena Cava Normal inferior vena cava with >50% collapse upon inspiration consistent with normal right atrial pressure, 10 mmHg. Aorta The aortic root size at the sinus of Valsalva is normal. Left Ventricular Outflow Tract Name Value Normal LVOT 2D LVOT Diameter 2.1 cm LVOT Doppler LVOT Peak Gradient 3 mmHg LVOT Mean Gradient 2 mmHg LVOT VTI 21 cm LVOT VTI/AV VTI Ratio 0.7 LVOT Stroke Volume 71 ml LVOT CO 5.1 l/min LVOT CI 2.3
[2023-04-23] MEDS: PRAVASTATIN SODIUM 20 MG TABLET 40 MG PO ×2 (00:05→20:48)
[2023-04-23] MEDS: amLODIPine BESYLATE 5 MG TABLET 10 MG PO ×2 (00:05→20:49)
[2023-04-23] MEDS: clonazePAM (*CRX) 0.5 MG TABLET 1 MG PO ×2 (00:05→20:49)
[2023-04-23] MEDS: CYPROHEPTADINE HCL 4 MG TABLET PO ×2 (00:06→20:48)
[2023-04-23 05:55] LABS: Hematocrit 41.2 % (37.0-47.0); Hemoglobin 13.3 g/dL (12.0-15.0); Mean Corpuscular HGB Conc 32.3 g/dl (32-36); Mean Corpuscular Hemoglobin 32.1 pg (26-34); Mean Corpuscular Volume 99.5 fl (80-100); Mean Platelet Volume 9.8 fl (7.4-10.4); Platelet Count Result 298 k/mm3 (150-375); Red Blood Count 4.14 M/mm3 (4.2-5.4); Red Cell Distribution Width 14.8 % (11.5-14.5); White Blood Count 7.3 K/mm3 (4.5-10.0)
[2023-04-23 05:59] LABS: Lactic Acid Reflex 1.2 mmol/L (0.7-2.0)
[2023-04-23 06:00] LABS: Anion Gap 9 mmol/L (8-16); Blood Urea Nitrogen 18 mg/dL (7-17); Calcium 9.3 mg/dL (8.4-10.2); Carbon Dioxide 28 mmol/L (22-30); Chloride 102 mmol/L (98-107); Estimated CRCL calculation 67 ml/min; Estimated Glomerular Filt Rate > 60; Glucose 92 mg/dL (65-110); Magnesium 1.9 mg/dL (1.6-2.3); Potassium 3.9 mmol/L (3.4-5.0); Sodium 139 mmol/L (137-145)
[2023-04-23 06:09] LABS: Salicylate < 1.0 mg/dL (2-20)
[2023-04-23 06:37] LABS: Influenza A QL RT-PCR Negative (Negative); Influenza B QL RT-PCR Negative (Negative); RSV RNA, RT-PCR Negative (Negative); SARS-CoV-2 RNA PCR Negative (Negative)
[2023-04-23] MEDS: predniSONE 10 MG TABLET PO (08:45)
[2023-04-23] MEDS: sulfaSALAzine 500 MG TABLET PO ×2 (08:45→18:06)
[2023-04-23] MEDS: FOLIC ACID 1 MG TABLET 2 MG PO (08:46)
[2023-04-23] MEDS: THERAPEUTIC MULTIVITAMINS/MINERALS TAB (*BKC) 1 TABLET PO (08:46)
[2023-04-23] MEDS: VITAMIN B COMPLEX CAPSULE 1 CAP PO (08:46)
[2023-04-23] MEDS: CHOLECALCIFEROL 1,000 UNITS TABLET 4000 UNITS PO (08:47)
[2023-04-23] MEDS: SPIRONOLACTONE 25 MG TABLET PO ×2 (08:47→18:06)
[2023-04-23] MEDS: METOPROLOL SUCCINATE EXT REL 50 MG TABCR PO (08:48)
--- NOTE | 2023-04-23 09:11 | PM.IMPN ---
Progress Note: A&P Assessment and Plan (1) Shortness of breath: Code(s): R06.02 - Shortness of breath Status: Acute (2) Rheumatoid arthritis: Code(s): M06.9 - Rheumatoid arthritis, unspecified Status: Acute (3) Benign hypertension: Code(s): I10 - Essential (primary) hypertension Status: Acute Plan 68-year-old female with history of rheumatoid arthritis on month seen effusions methotrexate sulfasalazine and currently on prednisone and hypertension presented with shortness of breath worsened since past [address] was normal. Presented with tingling weakness and burning sensation in bilateral upper extremities. She was tachycardic in 120s on arrival to the ED. shortness of breath ongoing for several years. Chest CT 04/02/2023 with no PE no pericardial or pleural effusion. EKG with left axis deviation signs of LVH nonspecific ST-T changes. ECHO Is pending. ongoing sob with exertion. will have pulmonary and cardiolgoy see for evaluation. laboratory data reviewed ABG 7.49/32/81/24 CO troponin negative BNP 72 Lipase 304 TSH normal Flu RSV COVID negative D-dimer elevated normal WBC count Head CT negative Chest x-ray no acute cardiopulmonary process Echo has been ordered for further evaluation. Atherosclerosis of aorta Hypertension CKD stage 3 Family history of colon cancer GERD Hyperlipidemia Phan Rheumatoid arthritis Colon polyps Subjective Date/time seen: 04/23/23 09:11 Interval history: feels okay, but gets sob easily. no chest pain. some tingling and numbness in upper extremities Review of Systems Review of Systems: All systems reviewed & are unremarkable except as noted in HPI and below Exam Narrative: General:?Well-developed female sitting up in bed. mild conversational dyspnea HEENT:??PERRL, EOMI.? Sclerae anicteric. Moist mucous membranes. Neck:??Supple. No thyromegaly, lymphadenopathy, or JVD. Respiratory:?Mild conversational dyspnea. Lungs are clear to auscultation bilaterally. Cardiovascular:??Regular rate and rhythm with S1-S2.? Gastrointestinal:??Abdomen is soft, nontender, nondistended with positive bowel sounds. Skin:??Warm and dry.? No rash or lesions on limited exam. Extremities:??No cyanosis, clubbing, or edema. Neurological:??Alert.? Cranial nerves 2-12 are grossly intact. No gross focal deficits to casual conversation. Psychiatric:??Pleasant and cooperative with normal mood and affect.? Objective Data Vital Signs Vital Signs: Vital Signs - 24 hr 04/22/23 16:12 04/22/23 16:58 04/22/23 17:00 Temperature 98.3 F Pulse Rate 127 H 99 98 Respiratory Rate 22 H 19 16 Blood Pressure 153/89 H 144/85 H Pulse Oximetry 98 98 99 Oxygen Delivery Room Air 04/22/23 17:02 04/22/23 17:23 04/22/23 17:30 Temperature Pulse Rate 87 92 81 Respiratory Rate 15 12 Blood Pressure 145/76 H Pulse Oximetry 98 99 98 Oxygen Delivery 04/22/23 18:00 04/22/23 18:02 04/22/23 18:17 Temperature Pulse Rate 83 84 84 Respiratory Rate 14 14 14 Blood Pressure 134/87 137/80 133/79 Pulse Oximetry 95 95 96 Oxygen Delivery 04/22/23 18:32 04/22/23 18:47 04/22/23 19:14 Temperature Pulse Rate 83 86 78 Respiratory Rate 13 24 H 12 Blood Pressure 135/81 131/78 132/77 Pulse Oximetry 99 97 97 Oxygen Delivery 04/22/23 20:55 04/22/23 21:35 04/22/23 21:26 Temperature 98.3 F Pulse Rate 72 84 Respiratory Rate 13 22 H Blood Pressure 130/76 131/99 H Pulse Oximetry 98 100 Oxygen Delivery Room Air 04/22/23 21:21 04/23/23 00:03 04/23/23 04:58 Temperature 97.3 F L 97.7 F Pulse Rate 99 71 65 Respiratory Rate 20 20 Blood Pressure 130/69 129/68 Pulse Oximetry 95 98 Oxygen Delivery 04/23/23 00:00 04/23/23 04:00 04/23/23 08:48 Temperature Pulse Rate 72 63 91 Respiratory Rate Blood Pressure Pulse Oximetry Oxygen Delivery Intake/Output Intake/Output: Intake & Output
--- NOTE | 2023-04-23 12:33 | PM.CNCAR ---
Assessment and Plan Assessment and plan (1) Shortness of breath: Code(s): R06.02 - Shortness of breath Status: Acute Assessment and Plan: Chronic shortness of breath that has worsened in recent weeks. Chest imaging has been negative for any pulmonary process. No pulmonary edema noted on CXR. BNP is normal. Echo has been ordered and will be reviewed. Further recommendations to follow. History of Present Illness History of Present Illness Consult date/time: 04/23/23 12:33 Requesting physician: Venkat Hdez MD Consult reason: shortness of breath Reason For Visit: Shortness of Breath Narrative: Luz Yoo is a 68-year-old female with rheumatoid arthritis. She has been experiencing dyspnea for several years and has noticed the worsening of dyspnea over the past 2-3 weeks especially over the last few days. She also endorses conversational dyspnea. Her primary care provider instructed her to come to the emergency department for evaluation of this. Her workup thus far has been essentially unrevealing with negative chest CT, negative chest x-ray. She denies any chest pain, palpitations, syncope, presyncope. She denies paroxysmal nocturnal dyspnea. She does endorse significant lower extremity edema that occurs about once a month and resolves spontaneously. Review of Systems Review of Systems: All systems reviewed & are unremarkable except as noted in HPI and below PMFSH Past Medical History Medical History Atherosclerosis of aorta Benign hypertension Chronic kidney disease, stage 3 Diverticulitis Gastroesophageal reflux disease Immunocompromised state due to drug therapy Mixed hyperlipidemia Nonalcoholic steatohepatitis (LOONEY) Rheumatoid arthritis Unspecified glaucoma Surgical History Surgical History History of arthroplasty of right knee (2001) History of cardiac catheterization History of cholecystectomy History of colonoscopy with polypectomy History of hysterectomy History of lateral meniscus repair of left knee (09/2015) History of tonsillectomy (1963) Family History Family History Father Cerebrovascular accident Carcinoma of colon Glaucoma Mother Hypertension Glaucoma Breast cancer Social History Social History Social History: Surrogate decision maker: Gerardo Yoo, spouse. Code status: Full code. Smoking status: Never smoker Alcohol intake: never Substance use: never Substance use type: does not use Lack of Transportation: No Lack of Food: Never True Current Housing: I Have Housing Concerned About Future Housing: No Difficulty Paying Gas/Electric Bills: No Difficulty Paying for Meds: No Currently Unemployed: No Education: High School Diploma/GED Difficulty w/ Childcare or Family Care: No Living arrangements: with family Occupation/Education: retired Spiritual care concerns: No Meds Home Medications and Allergies Home Medications Medication Instructions Recorded Confirmed Type cholecalciferol (vitamin D3) 100 4,000 unit PO DAILY 07/01/19 04/22/23 History mcg (4,000 unit) capsule vitamin B complex (B 1 tablet PO DAILY 09/21/19 04/22/23 History Complex-Vitamin B12 tablet) folic acid 1 mg tablet 2 mg PO DAILY 12/06/20 04/22/23 History bytbazkj-kpy-vaasn ac 400 1 tablet PO DAILY 12/06/20 04/22/23 History mcg-calcium carb 500 mg-vit K1 20 mcg tablet (Women's 50 Plus Multivitamin) methotrexate sodium 2.5 mg tablet See Rx Instructions PO WEEKLY 05/04/21 04/22/23 History cyproheptadine 4 mg tablet 4 mg PO HS #90 tabs 01/28/23 04/22/23 Rx pravastatin 40 mg tablet 40 mg PO QHS #90 tabs 02/14/23 04/22/23 Rx sulfasalazine 500 mg tablet 0.5 g PO BID 03/27/23 04/22/23 History abatacept 87.5 mg/0.7 mL
--- NOTE | 2023-04-23 14:03 | PM.CNPUL ---
Assessment and Plan Assessment and plan (1) Shortness of breath: Code(s): R06.02 - Shortness of breath Status: Acute Assessment and Plan: This 68-year-old female with rheumatoid arthritis has had shortness of breath primarily on exertion for approximately 3 years with recent worsening over the last 2-3 weeks. Physical exam is unremarkable for underlying lung disease. Diagnostic studies including chest CT showed no active lung disease. Patient is scheduled to have pulmonary function testing later on this month. Echocardiogram and cardiology evaluation pending. She had normal BNP, normal thyroid studies and no evidence of anemia. Patient's cause of breath is unclear at this point. Diagnostic studies so far do not suggest underlying respiratory disease. Await ECho to exclude elevated pulmonary artery systolic pressure; ordered CRP, CPK, ApneaLink tonight. There seems to be an element of anxiety as patient has frequent sighing at rest. Will follow along with you. (2) Rheumatoid arthritis: Code(s): M06.9 - Rheumatoid arthritis, unspecified Status: Acute (3) Chronic kidney disease, stage 3: Code(s): N18.30 - Chronic kidney disease, stage 3 unspecified Status: Acute History of Present Illness History of Present Illness Consult date: 04/23/23 Chief complaint: Shortness of Breath Narrative: This 68-year-old female seen in consultation for exertional dyspnea. The patient has been complaining of shortness of breath primarily on exertion. The shortness of breath started approximately 2 years ago and according to the patient has gotten worse over the last 3-4 weeks. Shortness of breath is not associated with other respiratory symptoms such as chest pain palpitations orthopnea hemoptysis cough wheezing fever chills. Patient stated that she often takes frequent sighs in order to to get relief. She has more shortness of breath when she rests following a strenuous activities. Patient has a history of rheumatoid arthritis diagnosed 3 years ago and has been on treatment with anti-inflammatory medications. According to the patient her medications were changed several times to get her rheumatoid arthritis under control. She continues to have some joint pain related to rheumatoid arthritis. She sleeps in a recliner because of a joint pain especially in her hips. According to the patient's she has some snoring at night. She never had a sleep study. Patient is scheduled to undergo pulmonary function testing later on this month. Recent chest CT showed no evidence of lung disease. she had a normal BNP on admission and no evidence of anemia. She never had history of asthma. No history of thyroid disease. Arterial blood gases on admission showed respiratory alkalosis. D-dimers were not elevated. She remains on room air with saturation near 100%. Patient does not think she is anxious. Over the last 2 years has not been very active because of rheumatoid arthritis. Review of Systems Review of Systems: Patient reports no significant weight changes. She occasionally has acid reflux symptoms. She was on medicine for acid reflux when she was on prednisone. She has no nausea vomiting diarrhea constipation. She has history of a previous UTI approximately 15 months ago. She denies history of skin rashes. She has no history of thyroid disease. She has dry mouth. Also has a history of chronic kidney disease, and LOONEY [facility] Past Medical History Medical History (Updated 04/22/23 @ 20:41 by Amanda Castillo PA-C) Atherosclerosis of aorta Benign hypertension Chronic kidney disease, stage 3 Diverticulitis Gastroesophageal reflux disease Immunocompromised state due to drug therapy Mixed hyperlipidemia Nonalcoholic steatohepatitis (LOONEY) Rheumatoid arthritis Unspecified glaucoma Surgical History Surgical History History of arthroplasty of right
[2023-04-23 15:37] LABS: Rheumatoid Factor < 12.0 IU/ML (<12)
[2023-04-23 15:38] LABS: CRP 0.7 mg/dL (<1.0); Creatine Kinase 31 U/L (30-135)
[2023-04-24] VITALS (12 sets, daily range): BP systolic 128–151; BP diastolic 73–87; PULSE 66–78; RESP 18–20; TEMP 36.6; O2SAT 95–100
[2023-04-24] MEDS: predniSONE 10 MG TABLET PO (09:01)
[2023-04-24] MEDS: sulfaSALAzine 500 MG TABLET PO ×2 (09:01→18:00)
[2023-04-24] MEDS: METOPROLOL SUCCINATE EXT REL 50 MG TABCR PO (09:02)
[2023-04-24] MEDS: THERAPEUTIC MULTIVITAMINS/MINERALS TAB (*BKC) 1 TABLET PO (09:02)
[2023-04-24] MEDS: FOLIC ACID 1 MG TABLET 2 MG PO (09:03)
[2023-04-24] MEDS: SPIRONOLACTONE 25 MG TABLET PO ×2 (09:03→17:52)
[2023-04-24] MEDS: VITAMIN B COMPLEX CAPSULE 1 CAP PO (09:03)
[2023-04-24] MEDS: CHOLECALCIFEROL 1,000 UNITS TABLET 4000 UNITS PO (09:04)
--- NOTE | 2023-04-24 09:38 | PM.PNPUL ---
Progress Note: A&P Assessment and Plan (1) Shortness of breath: Code(s): R06.02 - Shortness of breath Status: Acute Assessment and Plan: This 68-year-old female with rheumatoid arthritis has had shortness of breath primarily on exertion for approximately 3 years with recent worsening over the last 2-3 weeks.? Physical exam is unremarkable for underlying lung disease.? Diagnostic studies including chest CT showed no active lung disease.? On echocardiogram she had no evidence of elevated pulmonary artery systolic pressure. ApneaLink monitor last night showed an AHI of 13.4 and oxyhemoglobin desaturation with a saturation of less than 88% lasting 11 minutes or 4%.?? She has normal BNP, normal thyroid studies and no evidence of anemia. Diagnostic studies so far have not shown evidence of underlying lung disease. It is highly likely that the patient has a mixture of fatigue/shortness of breath which could be explained on the basis of chronic inflammation related to rheumatoid arthritis (most patients with rheumatoid arthritis complain of chronic fatigue), muscle deconditioning due to inactivity, and also due to underlying sleep disordered breathing as suggested by ApneaLink. Patient will need pulmonary function testing to entirely exclude respiratory disease. In fact she is scheduled to have a pulmonary function testing in approximately 2 weeks from today. The patient could be discharged from a respiratory standpoint. She will need a sleep study following evaluation in the outpatient clinic. I gave her my business card to call to make an appointment in the outpatient Pulmonary Clinic preferably after pulmonary function testing. Will sign off please call with any questions. (2) Rheumatoid arthritis: Code(s): M06.9 - Rheumatoid arthritis, unspecified Status: Acute (3) Nonalcoholic steatohepatitis (LOONEY): Code(s): K75.81 - Nonalcoholic steatohepatitis (LOONEY) Status: Acute Subjective Date/time seen: 04/24/23 09:38 Interval history: Patient has no new respiratory symptoms. She remains on room air. Underwent ApneaLink monitoring last night. Review of Systems Review of Systems: All systems reviewed & are unremarkable except as noted in HPI and below (HPI and below) Exam Narrative: GENERAL APPEARANCE: Well developed, well nourished, alert and cooperative, and appears to be in no acute distress while on room air SKIN: Inspection of the skin reveals no rashes, ulcerations or petechiae. HEENT: Sclerae anicteric and conjunctivae pink and moist. Extraocular movements were intact and pupils were equal, round, and reactive to light. The oral mucosa, hard and soft palate, tongue and posterior pharynx were normal. NECK: Supple. There was no thyroid enlargement, and no tenderness, or masses were felt. CHEST: Normal AP diameter and normal contour without any kyphoscoliosis. LUNGS: Auscultation of the lungs revealed normal breath sounds without any other adventitious sounds or rubs. CARDIAC: There was a regular rate and rhythm without any murmurs, gallops, rubs. ABDOMEN: Soft and nontender with normal bowel sounds. There was no organomegaly. LYMPH NODES: No lymphadenopathy was appreciated in the neck EXTREMITIES: No cyanosis, clubbing or edema. NEUROLOGIC: Alert and oriented x 3. Normal affect. Objective Data Vital Signs Vital Signs: Vital Signs - 24 hr 04/23/23 12:00 04/23/23 14:35 04/23/23 16:00 Temperature 37.1 C Pulse Rate 72 71 75 Respiratory Rate 16 Blood Pressure 125/73 Pulse Oximetry 94 Oxygen Delivery Fraction of Inspired Oxygen 04/23/23 19:38 04/23/23 20:00 04/23/23 23:30 Temperature 36.9 C Pulse Rate 77 76 72 Respiratory Rate 20 Blood Pressure 129/70 Pulse Oximetry 97 95 Oxygen Delivery Room Air Fraction of Inspired Oxygen 21 04/24/23 00:00 04/24/23 04:00 04/24/23 05:28 Temperature 36.6 C Pulse Rate 66 68 72 Respiratory Rate 20 Blood Press
--- NOTE | 2023-04-24 12:58 | PM.PNCARD ---
Progress Note: A&P Assessment and Plan (1) Shortness of breath: Code(s): R06.02 - Shortness of breath Status: Acute Assessment and Plan: Echocardiogram is unremarkable. Her dyspnea on exertion may be an anginal equivalent. Will keep her NPO after midnight for a Lexiscan myocardial perfusion study tomorrow. (2) Dizziness: Code(s): R42 - Dizziness and giddiness Status: Acute Assessment and Plan: Check orthostatic blood pressures. (3) Benign essential HTN: Code(s): I10 - Essential (primary) hypertension Status: Acute Assessment and Plan: Continue amlodipine and other meds Subjective Date/time seen: 04/24/23 12:58 Interval history: 68-year-old with shortness of breath and dizziness Follow-up note/date of service 04/24/2023: She still is short of breath with activity. She has also subjectively short of breath even with talking. Echocardiogram was unremarkable. Lab work is unremarkable including negative troponins and negative BNP. She denies chest pain. Still has some random episodes of dizziness also which is especially occur with standing and sitting Review of Systems Review of Systems: All systems reviewed & are unremarkable except as noted in HPI and below Constitutional: Constitutional: Denies body ache(s) Eyes: Eyes: Denies blurry vision ENT: Reports Normal hearing present Cardiovascular: Cardiovascular: Denies chest pain Respiratory: Respiratory: Denies chest congestion and Reports dyspnea Gastrointestinal: Gastrointestinal: Denies abdominal pain Genitourinary: Genitourinary: Denies hematuria Musculoskeletal: Musculoskeletal: Denies myalgias Integumentary/Breasts: Skin/Breast: Denies dry skin Neurologic: Denies Abnormal speech present Psychiatric: Psychiatric: Denies anxiety Endocrine: Endocrine: Denies change in body appearance Hematologic/Lymphatic: Hematologic/Lymphatic: Denies easy bleeding Allergic/Immunologic: Allergic/Immunologic: Denies GI upset with certain foods Exam Const: General: comfortable, no acute distress, alert and awake Orientation/consciousness: patient oriented x3 HENMT: Head: normal to inspection Eyes: General: appearance normal, both eyes and all related structures Sclera: sclerae normal Neck: Neck: normal visual inspection, supple and no JVD Carotids: normal carotid upstroke Resp: Effort & Inspection: normal respiratory effort Auscultation: clear to auscultation bilaterally Cardio: Rate: regular rate Rhythm: regular rhythm Heart sounds: S1 normal heart sound present, S2 normal heart sound present and no murmurs GI: Auscultation: normal bowel sounds Skin: General skin exam: normal color Neuro: General: patient oriented x3 Speech: normal speech Extrem: General: normal to inspection Psych: Appearance: grossly normal Mental Status: mental status grossly normal Objective Data Vital Signs Vital Signs: Vital Signs - 24 hr 04/23/23 14:35 04/23/23 16:00 04/23/23 19:38 Temperature 37.1 C 36.9 C Pulse Rate 71 75 77 Respiratory Rate 16 20 Blood Pressure 125/73 129/70 Pulse Oximetry 94 97 Oxygen Delivery Fraction of Inspired Oxygen 04/23/23 20:00 04/23/23 23:30 04/24/23 00:00 Temperature Pulse Rate 76 72 66 Respiratory Rate Blood Pressure Pulse Oximetry 95 Oxygen Delivery Room Air Fraction of Inspired Oxygen 21 04/24/23 04:00 04/24/23 05:28 04/24/23 09:02 Temperature 36.6 C Pulse Rate 68 72 74 Respiratory Rate 20 Blood Pressure 129/78 Pulse Oximetry 97 Oxygen Delivery Fraction of Inspired Oxygen 04/24/23 09:02 04/24/23 08:00 04/24/23 08:00 Temperature Pulse Rate 75 69 Respiratory Rate Blood Pressure Pulse Oximetry 95 Oxygen Delivery Room Air Room Air Fraction of Inspired Oxygen Intake/Output Intake/Output: Intake & Output 04/21/23 04/22/23 04/23/23 04/24/23 23:59 23:59 23:59 23:59 Intake
--- NOTE | 2023-04-24 14:43 | PM.IMPN ---
Progress Note: A&P Assessment and Plan (1) Shortness of breath: Code(s): R06.02 - Shortness of breath Status: Acute (2) Rheumatoid arthritis: Code(s): M06.9 - Rheumatoid arthritis, unspecified Status: Acute (3) Benign hypertension: Code(s): I10 - Essential (primary) hypertension Status: Acute Plan 68-year-old female with history of rheumatoid arthritis on month seen effusions methotrexate sulfasalazine and currently on prednisone and hypertension presented with shortness of breath worsened since past [address] was normal. Presented with tingling weakness and burning sensation in bilateral upper extremities. She was tachycardic in 120s on arrival to the ED. shortness of breath ongoing for several years. Chest CT 04/02/2023 with no PE no pericardial or pleural effusion. EKG with left axis deviation signs of LVH nonspecific ST-T changes. ECHO Is pending. ongoing sob with exertion. will have pulmonary and cardiolgoy see for evaluation. laboratory data reviewed ABG 7.49/32/81/24 CO troponin negative BNP 72 Lipase 304 TSH normal Flu RSV COVID negative D-dimer elevated normal WBC count Head CT negative Chest x-ray no acute cardiopulmonary process Echo notable for PASP 31 mmHg For lexiscan tomorrow cardiology following pulm has scheduled PFT in 2 weeks and signed off Further plans pending stress test result Atherosclerosis of aorta Hypertension CKD stage 3 Family history of colon cancer GERD Hyperlipidemia Phan Rheumatoid arthritis Colon polyps Subjective Date/time seen: 04/24/23 14:43 Interval history: 68-year-old with shortness of breath and dizziness Follow-up note/date of service 04/24/2023: comfortable at rest but still Short of breath with the mildest activity even with talking. Echocardiogram was unremarkable. Lab work is unremarkable including negative Troponins and negative BNP. for stress tomorrow and pulm scheduled PFT in 2 weeks Review of Systems Review of Systems: Twelve systems were reviewed and are negative except for as per HPI. All systems reviewed & are unremarkable except as noted in HPI and below Exam Narrative: General:?Well-developed female sitting up in bed. mild conversational dyspnea HEENT:??PERRL, EOMI.? Sclerae anicteric. Moist mucous membranes. Neck:??Supple. No thyromegaly, lymphadenopathy, or JVD. Respiratory:?Mild conversational dyspnea. Lungs are clear to auscultation bilaterally. Cardiovascular:??Regular rate and rhythm with S1-S2.? Gastrointestinal:??Abdomen is soft, nontender, nondistended with positive bowel sounds. Skin:??Warm and dry.? No rash or lesions on limited exam. Extremities:??No cyanosis, clubbing, or edema. Neurological:??Alert.? Cranial nerves 2-12 are grossly intact. No gross focal deficits to casual conversation. Psychiatric:??Pleasant and cooperative with normal mood and affect.? Objective Data Vital Signs Vital Signs: Vital Signs - 24 hr 04/23/23 16:00 04/23/23 19:38 04/23/23 20:00 Temperature 98.4 F Pulse Rate 75 77 76 Respiratory Rate 20 Blood Pressure 129/70 Pulse Oximetry 97 Oxygen Delivery Fraction of Inspired Oxygen 04/23/23 23:30 04/24/23 00:00 04/24/23 04:00 Temperature Pulse Rate 72 66 68 Respiratory Rate Blood Pressure Pulse Oximetry 95 Oxygen Delivery Room Air Fraction of Inspired Oxygen 21 04/24/23 05:28 04/24/23 09:02 04/24/23 09:02 Temperature 97.8 F Pulse Rate 72 74 75 Respiratory Rate 20 Blood Pressure 129/78 Pulse Oximetry 97 95 Oxygen Delivery Room Air Fraction of Inspired Oxygen 04/24/23 08:00 04/24/23 08:00 04/24/23 14:00 Temperature 97.8 F Pulse Rate 69 71 Respiratory Rate 18 Blood Pressure 128/74 Pulse Oximetry 100 Oxygen Delivery Room Air Fraction of Inspired Oxygen Intake/Output Intake/Output: Intake & Output 04/21/23 04/22/23 04/23/23 04/24/23 23:59 23:59
[2023-04-24] MEDS: CYPROHEPTADINE HCL 4 MG TABLET PO (20:17)
[2023-04-24] MEDS: PRAVASTATIN SODIUM 20 MG TABLET 40 MG PO (20:17)
[2023-04-24] MEDS: clonazePAM (*CRX) 0.5 MG TABLET 1 MG PO (20:17)
[2023-04-24] MEDS: amLODIPine BESYLATE 5 MG TABLET 10 MG PO (20:17)
[2023-04-25] VITALS (10 sets, daily range): BP systolic 125–155; BP diastolic 72–94; PULSE 67–81; RESP 16–18; TEMP 36.1–36.8; O2SAT 95–98
[2023-04-25 06:11] LABS: Basophils Absolute Auto 0.1 K/mm3 (0.0-0.1); Basophils Percent Auto 0.6 % (0.2-1.2); Eosinophils Absolute Auto 0.2 K/mm3 (0-0.3); Eosinophils Percent Auto 2.3 % (0-4.4); Hematocrit 41.8 % (37.0-47.0); Hemoglobin 13.7 g/dL (12.0-15.0); Immature Granulocyte Absolute 0.04 K/mm3 (0.00-0.031); Immature Granulocyte Percent A 0.4 % (0-0.5); Lymphocytes Absolute Auto 2.96 K/mm3 (0.9-3.2); Lymphocytes Percent Auto 31.1 % (18.3-44.2); Mean Corpuscular HGB Conc 32.8 g/dl (32-36); Mean Corpuscular Hemoglobin 32.5 pg (26-34); Mean Corpuscular Volume 99.1 fl (80-100); Mean Platelet Volume 9.4 fl (7.4-10.4); Monocytes Absolute Auto 0.8 K/mm3 (0.1-0.6); Monocytes Percent Auto 7.9 % (2.6-8.5); Neutrophils Absolute Auto 5.5 K/mm3 (1.3-6.7); Neutrophils Percent Auto 57.7 % (45.5-73.1); Platelet Count Result 281 k/mm3 (150-375); Red Blood Count 4.22 M/mm3 (4.2-5.4); Red Cell Distribution Width 14.3 % (11.5-14.5); White Blood Count 9.5 K/mm3 (4.5-10.0)
[2023-04-25 06:23] LABS: Alanine Aminotransferase 32 U/L (6-35); Albumin Level 4.3 g/dL (3.5-5.1); Alkaline Phosphatase 51 U/L (38-126); Anion Gap 9 mmol/L (8-16); Aspartate Amino Transferase 28 U/L (14-36); Bilirubin,Total 1.1 mg/dL (0.2-1.3); Blood Urea Nitrogen 18 mg/dL (7-17); Calcium 9.4 mg/dL (8.4-10.2); Carbon Dioxide 25 mmol/L (22-30); Chloride 103 mmol/L (98-107); Estimated CRCL calculation 67 ml/min; Estimated Glomerular Filt Rate > 60; Glucose 90 mg/dL (65-110); Magnesium 1.8 mg/dL (1.6-2.3); Potassium 3.8 mmol/L (3.4-5.0); Sodium 137 mmol/L (137-145)
[2023-04-25 06:24] LABS: Lactic Acid Reflex 1.1 mmol/L (0.7-2.0)
--- NOTE | 2023-04-25 08:02 | EST_ITS ---
Patient Info Name: Audra Yoo Age: 68 years : 1955 Gender: Female Ht: 68 in Wt: 226 lbs BSA: 2.26 m2 HR: 69 bpm BP: 133 / 72 mmHg Heart Rhythm: Sinus Rhythm Exam Date: 04/25/2023 10:16 AM Exam Location: [facility] Stress Patient Status: Outpatient Admit Date: 04/22/2023 Staff Ordering Physician: Nikolas Valdivia MD Attending Provider: Srinivasa Brantley MD Exercise Technologist: Ivon Otero CT Nurse: Olinda Morfin APN Exam Type: CA stress félix w NM Study Info Indications R06.09 - Other forms of dyspnea A regadenoson stress test was performed. Summary 1. Please correlate with nuclear medicine images, reported separately. 2. No abnormal ST-T wave changes with lexiscan. 3. Supervising and interpreting physician is Dr. Nikolas Valdivia. Protocol: Lexiscan Stress ECG Details Stage: REST Duration (min): 1 min : 44 sec HR (bpm): 69 SBP (mmHg): 133 DBP (mmHg): 72 Stage: REST Duration (min): 7 min : 53 sec HR (bpm): 78 SBP (mmHg): 133 DBP (mmHg): 72 Stage: STAGE 1 Duration (min): 1 min : 0 sec HR (bpm): 107 SBP (mmHg): 166 DBP (mmHg): 62 Stage: RECOVERY Duration (min): 1 min : 0 sec HR (bpm): 107 SBP (mmHg): 166 DBP (mmHg): 62 Stage: RECOVERY Duration (min): 2 min : 0 sec HR (bpm): 104 SBP (mmHg): 166 DBP (mmHg): 62 Stage: RECOVERY Duration (min): 3 min : 0 sec HR (bpm): 104 SBP (mmHg): 158 DBP (mmHg): 68 Stage: RECOVERY Duration (min): 4 min : 0 sec HR (bpm): 103 SBP (mmHg): 158 DBP (mmHg): 68 Stage: RECOVERY Duration (min): 4 min : 58 sec HR (bpm): 103 SBP (mmHg): 152 DBP (mmHg): 67 Rest HR: 78 bpm Peak HR: 111 bpm Rest Sys BP: 133 mmHg Peak Sys BP: 166 mmHg Max Pred HR: 153 bpm % Max Pred HR: 73 % Target HR: 130 bpm Max RPP: 18,426 bpm*mmHg BP Response: Normal blood pressure response Termination Reason: Completed protocol Cardiac Symptoms: None Total Time: 1 min : 0 sec Rest Holt BP: 72 mmHg Peak Holt BP: 62 mmHg Total Dose: 0.4 mg Resting ECG Normal sinus rhythm. Left anterior fascicular block, can not rule out anterior infarction. Stress ECG No abnormal ST/T wave changes with exercise. Arrhythmias None. Report Signatures
--- NOTE | 2023-04-25 09:06 | PM.IMPN ---
Progress Note: A&P Assessment and Plan (1) Shortness of breath: Code(s): R06.02 - Shortness of breath Status: Acute (2) Rheumatoid arthritis: Code(s): M06.9 - Rheumatoid arthritis, unspecified Status: Acute (3) Benign hypertension: Code(s): I10 - Essential (primary) hypertension Status: Acute Plan 68-year-old female with history of rheumatoid arthritis on month seen effusions methotrexate sulfasalazine and currently on prednisone and hypertension presented with shortness of breath worsened since past 2 weeks. SOB Outpatient chest CT was normal. Presented with tingling weakness and burning sensation in bilateral upper extremities. She was tachycardic in 120s on arrival to the ED. shortness of breath ongoing for several years. Chest CT 04/02/2023 with no PE no pericardial or pleural effusion. EKG with left axis deviation signs of LVH nonspecific ST-T changes. ECHO Is pending. ongoing sob with exertion. consult pulmonary and cardiolgoy see for evaluation. ABG 7.49/32/81/24 CO troponin negative BNP 72 Lipase 304 TSH normal Flu RSV COVID negative D-dimer elevated normal WBC count Head CT negative Chest x-ray no acute cardiopulmonary process Echo notable for PASP 31 mmHg Echocardiogram is unremarkable.? Lexiscan stress test this morning did not show and ischemia or infarct, EF 70%.? cardiology following pulm has scheduled PFT in 2 weeks and signed off Further plans pending stress test result Atherosclerosis of aorta Hypertension CKD stage 3 Family history of colon cancer GERD Hyperlipidemia Phan Rheumatoid arthritis Colon polyps Subjective Date/time seen: 04/25/23 09:06 Interval history: feels breath with the mildest activity Lab work is unremarkable including negative Troponins and negative BNP. Exam Narrative: General:?Well-developed female sitting up in bed. mild conversational dyspnea HEENT:??PERRL, EOMI.? Sclerae anicteric. Moist mucous membranes. Neck:??Supple. No thyromegaly, lymphadenopathy, or JVD. Respiratory:?Mild conversational dyspnea. Lungs are clear to auscultation bilaterally. Cardiovascular:??Regular rate and rhythm with S1-S2.? Gastrointestinal:??Abdomen is soft, nontender, nondistended with positive bowel sounds. Skin:??Warm and dry.? No rash or lesions on limited exam. Extremities:??No cyanosis, clubbing, or edema. Neurological:??Alert.? Cranial nerves 2-12 are grossly intact. No gross focal deficits to casual conversation. Psychiatric:??Pleasant and cooperative with normal mood and affect.? Objective Data Vital Signs Vital Signs: Vital Signs - 24 hr 04/24/23 14:00 04/24/23 13:02 04/24/23 14:47 Temperature 97.8 F Pulse Rate 71 Respiratory Rate 18 Blood Pressure 128/74 142/73 H 151/83 H Pulse Oximetry 100 Oxygen Delivery 04/24/23 14:47 04/24/23 12:00 04/24/23 16:00 Temperature Pulse Rate 76 78 Respiratory Rate Blood Pressure 144/87 H Pulse Oximetry Oxygen Delivery 04/24/23 20:00 04/24/23 20:00 04/24/23 22:00 Temperature 97.8 F Pulse Rate 78 72 Respiratory Rate 18 Blood Pressure 145/80 H Pulse Oximetry 95 Oxygen Delivery Room Air 04/25/23 00:00 04/25/23 04:00 04/25/23 05:57 Temperature 97.0 F L Pulse Rate 68 68 73 Respiratory Rate 18 Blood Pressure 143/94 H Pulse Oximetry 97 Oxygen Delivery Intake/Output Intake/Output: Intake & Output 04/22/23 04/23/23 04/24/23 04/25/23 23:59 23:59 23:59 23:59 Intake Total 3770 2009 Output Total 500 2950 900 750 Balance -290 776 0417 -750 Meds/Results Medications: Active Medications Generic Name Dose Route Start Last Admin Trade Name Freq PRN Reason Stop Dose Admin Amlodipine Besylate 10 mg 04/23/23 21:00 04/24/23 20:17 Amlodipine Besylate 5 Mg Tablet PO 10 mg HS LARISSA Administration Clonazepam 1 mg 04/23/23 21:00 04/24/23 20:17 Clonazepam (*Crx) 0.5 Mg Tablet PO 1 mg QHS LARISSA Ad
--- NOTE | 2023-04-25 09:10 | PC.NURSE ---
called to cardiology to clarify MD performing and time of félix scan
[2023-04-25] MEDS: CHOLECALCIFEROL 1,000 UNITS TABLET 4000 UNITS PO (09:16)
[2023-04-25] MEDS: FOLIC ACID 1 MG TABLET 2 MG PO (09:16)
[2023-04-25] MEDS: THERAPEUTIC MULTIVITAMINS/MINERALS TAB (*BKC) 1 TABLET PO (09:17)
[2023-04-25] MEDS: predniSONE 10 MG TABLET PO (09:17)
[2023-04-25] MEDS: METOPROLOL SUCCINATE EXT REL 50 MG TABCR PO (09:17)
[2023-04-25] MEDS: SPIRONOLACTONE 25 MG TABLET PO ×2 (09:17→16:07)
[2023-04-25] MEDS: sulfaSALAzine 500 MG TABLET PO ×2 (09:17→16:07)
[2023-04-25] MEDS: VITAMIN B COMPLEX CAPSULE 1 CAP PO (09:17)
--- NOTE | 2023-04-25 09:22 | PC.NURSE ---
pt being transported to cardiology for félix scan
--- NOTE | 2023-04-25 10:33 | PM.PNCARD ---
Progress Note: A&P Assessment and Plan (1) Shortness of breath: Code(s): R06.02 - Shortness of breath Status: Acute Assessment and Plan: Echocardiogram is unremarkable. Lexiscan stress test this morning did not show and ischemia or infarct, EF 70%. (2) Dizziness: Code(s): R42 - Dizziness and giddiness Status: Acute Assessment and Plan: Orthostatic blood pressures negative (3) Benign essential HTN: Code(s): I10 - Essential (primary) hypertension Status: Acute Assessment and Plan: Continue amlodipine and other meds Subjective Date/time seen: 04/25/23 10:33 Interval history: 68-year-old with shortness of breath and dizziness Follow-up note/date of service 04/24/2023: She still is short of breath with activity. She has also subjectively short of breath even with talking. Echocardiogram was unremarkable. Lab work is unremarkable including negative troponins and negative BNP. She denies chest pain. Still has some random episodes of dizziness also which is especially occur with standing and sitting Date of service 04/25/2023: Feels about the same, continues to have shortness of breath with activity and conversation. Undergoing stress test this morning. Review of Systems Review of Systems: All systems reviewed & are unremarkable except as noted in HPI and below Constitutional: Constitutional: Denies body ache(s) Eyes: Eyes: Denies blurry vision ENT: Reports Normal hearing present Cardiovascular: Cardiovascular: Denies chest pain and Reports dyspnea Respiratory: Respiratory: Denies chest congestion and Reports dyspnea Gastrointestinal: Gastrointestinal: Denies abdominal pain Genitourinary: Genitourinary: Denies hematuria Musculoskeletal: Musculoskeletal: Denies myalgias Integumentary/Breasts: Skin/Breast: Denies dry skin Neurologic: Reports Normal hearing present and Denies Abnormal speech present Psychiatric: Psychiatric: Denies anxiety Endocrine: Endocrine: Denies change in body appearance Hematologic/Lymphatic: Hematologic/Lymphatic: Denies easy bleeding Allergic/Immunologic: Allergic/Immunologic: Denies GI upset with certain foods Exam Const: General: comfortable, no acute distress, alert and awake Orientation/consciousness: patient oriented x3 HENMT: Head: normal to inspection Eyes: General: appearance normal, both eyes and all related structures Sclera: sclerae normal Pupils: Equal, round and reactive pupils present Neck: Neck: normal visual inspection, supple and no JVD Carotids: normal carotid upstroke Resp: Effort & Inspection: normal respiratory effort Auscultation: clear to auscultation bilaterally Cardio: Rate: regular rate Rhythm: regular rhythm Heart sounds: S1 normal heart sound present, S2 normal heart sound present and no murmurs GI: Auscultation: normal bowel sounds Skin: General skin exam: normal color Neuro: General: patient oriented x3 Cranial nerves: Yes Equal, round and reactive pupils present and Yes Normal hearing present Speech: normal speech and No Abnormal speech present Extrem: General: normal to inspection Psych: Appearance: grossly normal Mental Status: mental status grossly normal Objective Data Vital Signs Vital Signs: Vital Signs - 24 hr 04/24/23 14:00 04/24/23 13:02 04/24/23 14:47 Temperature 36.6 C Pulse Rate 71 Respiratory Rate 18 Blood Pressure 128/74 142/73 H 151/83 H Pulse Oximetry 100 Oxygen Delivery 04/24/23 14:47 04/24/23 12:00 04/24/23 16:00 Temperature Pulse Rate 76 78 Respiratory Rate Blood Pressure 144/87 H Pulse Oximetry Oxygen Delivery 04/24/23 20:00 04/24/23 20:00 04/24/23 22:00 Temperature 36.6 C Pulse Rate 78 72 Respiratory Rate 18 Blood Pressure 145/80 H Pulse Oximetry 95 Oxygen Delivery Room Air 04/25/23 00:00 04/25/23 04:00 04/25/23 05:57 Temperature 36.1 C L Pulse Rate 68 68 73 Respir
--- NOTE | 2023-04-25 11:30 | PC.NURSE ---
félix scan completed
[2023-04-25] MEDS: amLODIPine BESYLATE 5 MG TABLET 10 MG PO (20:05)
[2023-04-25] MEDS: PRAVASTATIN SODIUM 20 MG TABLET 40 MG PO (20:07)
[2023-04-25] MEDS: CYPROHEPTADINE HCL 4 MG TABLET PO (20:07)
[2023-04-25] MEDS: clonazePAM (*CRX) 0.5 MG TABLET 1 MG PO (20:08)
[2023-04-26] VITALS (10 sets, daily range): BP systolic 130–152; BP diastolic 70–89; PULSE 68–82; RESP 16–18; TEMP 36.3–36.8; O2SAT 96
--- NOTE | 2023-04-26 08:23 | PM.IMPN ---
Progress Note: A&P Assessment and Plan (1) Shortness of breath: Code(s): R06.02 - Shortness of breath Status: Acute (2) Rheumatoid arthritis: Code(s): M06.9 - Rheumatoid arthritis, unspecified Status: Acute (3) Benign hypertension: Code(s): I10 - Essential (primary) hypertension Status: Acute Plan 68-year-old female with history of rheumatoid arthritis on month seen effusions methotrexate sulfasalazine and currently on prednisone and hypertension presented with shortness of breath worsened since past 2 weeks. SOB Outpatient chest CT was normal. Presented with tingling weakness and burning sensation in bilateral upper extremities. She was tachycardic in 120s on arrival to the ED. shortness of breath ongoing for several years. Chest CT 04/02/2023 with no PE no pericardial or pleural effusion. EKG with left axis deviation signs of LVH nonspecific ST-T changes. consult pulmonary and cardiolgoy see for evaluation. ABG 7.49/32/81/24 CO troponin negative BNP 72 Lipase 304 TSH normal Flu RSV COVID negative D-dimer elevated normal WBC count Head CT negative Chest x-ray no acute cardiopulmonary process Echo notable for PASP 31 mmHg Echocardiogram is unremarkable.? Lexiscan stress test this morning did not show and ischemia or infarct, EF 70%.? cardiology following pulm has scheduled PFT in 2 weeks and signed off Atherosclerosis of aorta Hypertension CKD stage 3 Family history of colon cancer GERD Hyperlipidemia Phan Rheumatoid arthritis Colon polyps Subjective Date/time seen: 04/26/23 08:23 Interval history: feels breath with mild to moderate exertion, stress test negative of ischemia, Lab work is unremarkable including negative Troponins and negative BNP. Exam Narrative: General:?Well-developed female sitting up in bed. mild conversational dyspnea HEENT:??PERRL, EOMI.? Sclerae anicteric. Moist mucous membranes. Neck:??Supple. No thyromegaly, lymphadenopathy, or JVD. Respiratory:?Mild conversational dyspnea. Lungs are clear to auscultation bilaterally. Cardiovascular:??Regular rate and rhythm with S1-S2.? Gastrointestinal:??Abdomen is soft, nontender, nondistended with positive bowel sounds. Skin:??Warm and dry.? No rash or lesions on limited exam. Extremities:??No cyanosis, clubbing, or edema. Neurological:??Alert.? Cranial nerves 2-12 are grossly intact. No gross focal deficits to casual conversation. Psychiatric:??Pleasant and cooperative with normal mood and affect.? Objective Data Vital Signs Vital Signs: Vital Signs - 24 hr 04/25/23 09:17 04/25/23 12:00 04/25/23 14:00 Temperature 98.2 F Pulse Rate 72 72 81 Respiratory Rate 16 Blood Pressure 125/72 Pulse Oximetry 95 Oxygen Delivery 04/25/23 16:00 04/25/23 19:18 04/25/23 20:00 Temperature 98.0 F Pulse Rate 67 77 Respiratory Rate 18 Blood Pressure 155/79 H Pulse Oximetry 98 98 Oxygen Delivery Room Air 04/25/23 20:00 04/26/23 00:00 04/26/23 04:00 Temperature Pulse Rate 77 69 69 Respiratory Rate Blood Pressure Pulse Oximetry Oxygen Delivery 04/26/23 05:46 Temperature 97.3 F L Pulse Rate 72 Respiratory Rate 18 Blood Pressure 152/89 H Pulse Oximetry 96 Oxygen Delivery Intake/Output Intake/Output: Intake & Output 04/23/23 04/24/23 04/25/23 04/26/23 23:59 23:59 23:59 23:59 Intake Total 3770 2010 1620 Output Total 2950 900 3750 400 Balance 820 1110 2130 400 Meds/Results Medications: Active Medications Generic Name Dose Route Start Last Admin Trade Name Freq PRN Reason Stop Dose Admin Amlodipine Besylate 10 mg 04/23/23 21:00 04/25/23 20:05 Amlodipine Besylate 5 Mg Tablet PO 10 mg HS LARISSA Administration Clonazepam 1 mg 04/23/23 21:00 04/25/23 20:08 Clonazepam (*Crx) 0.5 Mg Tablet PO 1 mg QHS LARISSA Administration Cyproheptadine HCl 4 mg 04/23/23 21:00 04/25/23 20:07 Cyproheptadine Hcl 4 Mg Table
[2023-04-26] MEDS: CHOLECALCIFEROL 1,000 UNITS TABLET 4000 UNITS PO (08:35)
[2023-04-26] MEDS: sulfaSALAzine 500 MG TABLET PO ×2 (08:35→17:05)
[2023-04-26] MEDS: predniSONE 10 MG TABLET PO (08:35)
[2023-04-26] MEDS: METOPROLOL SUCCINATE EXT REL 50 MG TABCR PO (08:35)
[2023-04-26] MEDS: FOLIC ACID 1 MG TABLET 2 MG PO (08:35)
[2023-04-26] MEDS: THERAPEUTIC MULTIVITAMINS/MINERALS TAB (*BKC) 1 TABLET PO (08:35)
[2023-04-26] MEDS: SPIRONOLACTONE 25 MG TABLET PO ×2 (08:35→17:05)
[2023-04-26] MEDS: VITAMIN B COMPLEX CAPSULE 1 CAP PO (08:36)
[2023-04-26] MEDS: clonazePAM (*CRX) 0.5 MG TABLET 1 MG PO (21:31)
[2023-04-26] MEDS: PRAVASTATIN SODIUM 20 MG TABLET 40 MG PO (21:32)
[2023-04-26] MEDS: CYPROHEPTADINE HCL 4 MG TABLET PO (21:32)
[2023-04-26] MEDS: amLODIPine BESYLATE 5 MG TABLET 10 MG PO (21:32)
[2023-04-27] VITALS (10 sets, daily range): BP systolic 130–145; BP diastolic 68–74; PULSE 63–81; RESP 17–20; TEMP 35.9–36.7; O2SAT 97
[2023-04-27] MEDS: sulfaSALAzine 500 MG TABLET PO ×2 (08:25→17:09)
[2023-04-27] MEDS: THERAPEUTIC MULTIVITAMINS/MINERALS TAB (*BKC) 1 TABLET PO (08:25)
[2023-04-27] MEDS: predniSONE 10 MG TABLET PO (08:26)
[2023-04-27] MEDS: VITAMIN B COMPLEX CAPSULE 1 CAP PO (08:26)
[2023-04-27] MEDS: FOLIC ACID 1 MG TABLET 2 MG PO (08:26)
[2023-04-27] MEDS: CHOLECALCIFEROL 1,000 UNITS TABLET 4000 UNITS PO (08:26)
[2023-04-27] MEDS: SPIRONOLACTONE 25 MG TABLET PO ×2 (08:26→17:09)
[2023-04-27] MEDS: METOPROLOL SUCCINATE EXT REL 50 MG TABCR PO (08:26)
--- NOTE | 2023-04-27 08:32 | PM.IMPN ---
Progress Note: A&P Assessment and Plan (1) Shortness of breath: Code(s): R06.02 - Shortness of breath Status: Acute (2) Rheumatoid arthritis: Code(s): M06.9 - Rheumatoid arthritis, unspecified Status: Acute (3) Benign hypertension: Code(s): I10 - Essential (primary) hypertension Status: Acute Plan 68-year-old female with history of rheumatoid arthritis on month seen effusions methotrexate sulfasalazine and currently on prednisone and hypertension presented with shortness of breath worsened since past 2 weeks. SOB Outpatient chest CT was normal. Presented with tingling weakness and burning sensation in bilateral upper extremities. She was tachycardic in 120s on arrival to the ED. shortness of breath ongoing for several years. Chest CT 04/02/2023 with no PE no pericardial or pleural effusion. EKG with left axis deviation signs of LVH nonspecific ST-T changes. consult pulmonary and cardiolgoy see for evaluation. ABG 7.49/32/81/24 CO troponin negative BNP 72 Lipase 304 TSH normal Flu RSV COVID negative D-dimer elevated normal WBC count Head CT negative Chest x-ray no acute cardiopulmonary process Echo notable for PASP 31 mmHg Echocardiogram is unremarkable.? Lexiscan stress test this morning did not show and ischemia or infarct, EF 70%.? cardiology following pulm has scheduled PFT in 2 weeks and signed off Hypertension Blood pressure is controlled CKD stage 3 Resolves BUN 17, creatinine 0.9 GERD Stable Hyperlipidemia Phan Rheumatoid arthritis Colon polyps Subjective Date/time seen: 04/27/23 08:32 Interval history: I saw on exam patient today, patient still has shortness breath with exertion , Lab work is unremarkable patient denies cough, chest pain, abdomen pain, nausea vomiting Exam Narrative: General:?Well-developed female sitting up in bed. mild conversational dyspnea HEENT:??PERRL, EOMI.? Sclerae anicteric. Moist mucous membranes. Neck:??Supple. No thyromegaly, lymphadenopathy, or JVD. Respiratory:?Mild conversational dyspnea. Lungs are clear to auscultation bilaterally. Cardiovascular:??Regular rate and rhythm with S1-S2.? Gastrointestinal:??Abdomen is soft, nontender, nondistended with positive bowel sounds. Skin:??Warm and dry.? No rash or lesions on limited exam. Extremities:??No cyanosis, clubbing, or edema. Neurological:??Alert.? Cranial nerves 2-12 are grossly intact. No gross focal deficits to casual conversation. Psychiatric:??Pleasant and cooperative with normal mood and affect.? Objective Data Vital Signs Vital Signs: Vital Signs - 24 hr 04/26/23 08:35 04/26/23 12:00 04/26/23 14:56 Temperature 98.2 F Pulse Rate 70 82 78 Respiratory Rate 16 Blood Pressure 133/76 Pulse Oximetry 96 Oxygen Delivery 04/26/23 16:00 04/26/23 21:46 04/26/23 21:25 Temperature 97.7 F Pulse Rate 76 73 Respiratory Rate 18 Blood Pressure 130/70 Pulse Oximetry 96 Oxygen Delivery Room Air 04/26/23 20:00 04/27/23 00:00 04/27/23 04:00 Temperature Pulse Rate 73 70 68 Respiratory Rate Blood Pressure Pulse Oximetry Oxygen Delivery 04/27/23 06:00 04/27/23 08:26 Temperature 97.9 F Pulse Rate 78 80 Respiratory Rate 20 Blood Pressure 130/74 Pulse Oximetry 97 Oxygen Delivery Intake/Output Intake/Output: Intake & Output 04/24/23 04/25/23 04/26/23 04/27/23 23:59 23:59 23:59 23:59 Intake Total 2009 1620 2240 400 Output Total 3750 7841 850 Balance 1110 -2130 -460 -450 Meds/Results Medications: Active Medications Generic Name Dose Route Start Last Admin Trade Name Freq PRN Reason Stop Dose Admin Amlodipine Besylate 10 mg 04/23/23 21:00 04/26/23 21:32 Amlodipine Besylate 5 Mg Tablet PO 10 mg HS LARISSA Administration Clonazepam 1 mg 04/23/23 21:00 04/26/23 21:31 Clonazepam (*Crx) 0.5 Mg Tablet PO 1 mg QHS LARISSA Administration Cyproheptadine HCl 4 mg
[2023-04-27 11:33] LABS: Anion Gap 9 mmol/L (8-16); Blood Urea Nitrogen 17 mg/dL (7-17); Calcium 9.4 mg/dL (8.4-10.2); Carbon Dioxide 27 mmol/L (22-30); Chloride 101 mmol/L (98-107); Estimated CRCL calculation 67 ml/min; Estimated Glomerular Filt Rate > 60; Glucose 137 mg/dL (65-110); Potassium 3.7 mmol/L (3.4-5.0); Sodium 137 mmol/L (137-145)
--- NOTE | 2023-04-27 15:58 | PC.NURSE ---
called cardiology due to not seeing patient since the , Dr. Hanks is humanities division chair. Spoke with this provider and provider stated that cardiology signed off days ago and is not going to see pt. this nurse stated that it was not noted in the cardiology note that cardiology signed off. This nurse then notified hospitalist Dr. Escobedo, provider stated to contact tae sosa because Dr. Escobedo wants cardiology to see pt. at [address] [facility] made aware.
--- NOTE | 2023-04-27 16:22 | P.DS_ITS ---
DS: Summary Time Spent with Patient Time attestation: Total time spent providing and/or coordinating discharge services: DS: Data Data Completed and Pending Labs on day of discharge: Labs from last 24 hours 04/27/23 10:36 Sodium 137 Potassium 3.7 Chloride 101 Carbon Dioxide 27 Anion Gap 9 BUN 17 Creatinine 0.90 Estim Creat Clear Calc 67 Estimated GFR > 60 Glucose 137 H Calcium 9.4 Discharge Plan Discharge Attending physician on discharge: Rissa Escobedo Consulting providers: Danilo Solomon; Nikolas Valdivia Discharging Clinician: Rissa Escobedo Patient Disposition: Home, Self-Care Activity: as tolerated Diet: as tolerated Discharge Instructions: Will discharge patient when it is approved by lead instructor/flight attendant Patient Instructions: Antibiotic Form, Pain Management (DC), Dyspnea (DC) Stand Alone Forms: General Discharge Information Follow-up/Referrals: Nikolas Valdivia MD [Physician] - (Patient needs to see lead instructor/flight attendant as sched uled appointment for follow-up) Aric Brown MD [Primary Care Provider] - (Patient need to see primary care doctor in 1 week) Danilo Solomon MD [Physician] - (Patient needs to see real estate associate attorney at scheduled appointment for PFT test) Discharge Medications: Continued vitamin B complex [B Complex-Vitamin B12] Tablet 1 tablet PO DAILY folic acid 1 mg tablet 2 mg PO DAILY Women's 50 Plus Multivitamin 400 mcg-500 mg calcium-20 mcg tablet 1 tablet PO DAILY sulfasalazine 500 mg tablet 0.5 g PO BID Rx Instructions: give with food (meal/snack) cholecalciferol (vitamin D3) 4,000 unit capsule 4,000 unit PO DAILY Orencia 87.5 mg/0.7 mL Syringe 87.5 mg subcut MONTHLY Rx Instructions: TOOK ON Mar BY INFUSION amlodipine 10 mg tablet 10 mg PO HS prednisone 10 mg tablet 10 mg PO DAILY Rx Instructions: NEEDS TO STOP Saturday04/27/23 AFTER DOSE methotrexate sodium 2.5 mg tablet See Rx Instructions PO WEEKLY Rx Instructions: take 4 tablets one day PO weekly; TAKES ON SUNDAYS cyproheptadine 4 mg tablet 4 mg PO HS Qty: 90 1RF Rx Instructions: TAKE 1 TABLET BY MOUTH EVERY DAY AT BEDTIME pravastatin 40 mg tablet 40 mg PO QHS Qty: 90 0RF spironolactone 25 mg tablet 25 mg PO BID Qty: 180 1RF metoprolol succinate 100 mg tablet extended release 24 hr 50 mg PO DAILY Qty: 90 1RF clonazepam 1 mg tablet 1 mg PO QHS Qty: 90 0RF Date of admission: 04/22/23 20:06 Primary Care Provider: Aric Brown Admitting Provider: Srinivasa Brantley Attending physician on admission: Srinivasa Brantley Condition: Stable
[2023-04-27] MEDS: CYPROHEPTADINE HCL 4 MG TABLET PO (21:03)
[2023-04-27] MEDS: PRAVASTATIN SODIUM 20 MG TABLET 40 MG PO (21:03)
[2023-04-27] MEDS: amLODIPine BESYLATE 5 MG TABLET 10 MG PO (21:03)
[2023-04-27] MEDS: clonazePAM (*CRX) 0.5 MG TABLET 1 MG PO (21:03)
[2023-04-28] VITALS: PULSE 67
[2023-04-28 03:59] VITALS: BP 143/77; PULSE 76; RESP 16; TEMP 36.1; O2SAT 99
[2023-04-28 04:00] VITALS: PULSE 79
[2023-04-28 05:23] LABS: Anion Gap 8 mmol/L (8-16); Blood Urea Nitrogen 18 mg/dL (7-17); Calcium 9.2 mg/dL (8.4-10.2); Carbon Dioxide 26 mmol/L (22-30); Chloride 102 mmol/L (98-107); Estimated CRCL calculation 74 ml/min; Estimated Glomerular Filt Rate > 60; Glucose 89 mg/dL (65-110); Potassium 3.8 mmol/L (3.4-5.0); Sodium 136 mmol/L (137-145)
--- NOTE | 2023-04-28 07:48 | PM.IMPN ---
Progress Note: A&P Assessment and Plan (1) Shortness of breath: Code(s): R06.02 - Shortness of breath Status: Acute (2) Rheumatoid arthritis: Code(s): M06.9 - Rheumatoid arthritis, unspecified Status: Acute (3) Benign hypertension: Code(s): I10 - Essential (primary) hypertension Status: Acute Plan 68-year-old female with history of rheumatoid arthritis on month seen effusions methotrexate sulfasalazine and currently on prednisone and hypertension presented with shortness of breath worsened since past 2 weeks. SOB Outpatient chest CT was normal. Presented with tingling weakness and burning sensation in bilateral upper extremities. She was tachycardic in 120s on arrival to the ED. shortness of breath ongoing for several years. Chest CT 04/02/2023 with no PE no pericardial or pleural effusion. EKG with left axis deviation signs of LVH nonspecific ST-T changes. consult pulmonary and cardiolgoy see for evaluation. ABG 7.49/32/81/24 CO troponin negative BNP 72 Lipase 304 TSH normal Flu RSV COVID negative D-dimer elevated normal WBC count Head CT negative Chest x-ray no acute cardiopulmonary process Echo notable for PASP 31 mmHg Echocardiogram is unremarkable.? Lexiscan stress test this morning did not show and ischemia or infarct, EF 70%.? cardiology following pulm has scheduled PFT in 2 weeks and signed off Hypertension Blood pressure is controlled CKD stage 3 Resolves BUN 17, creatinine 0.9 GERD Stable Hyperlipidemia Phan Rheumatoid arthritis Colon polyps Subjective Date/time seen: 04/28/23 07:48 Exam Narrative: General:?Well-developed female sitting up in bed. mild conversational dyspnea HEENT:??PERRL, EOMI.? Sclerae anicteric. Moist mucous membranes. Neck:??Supple. No thyromegaly, lymphadenopathy, or JVD. Respiratory:?Mild conversational dyspnea. Lungs are clear to auscultation bilaterally. Cardiovascular:??Regular rate and rhythm with S1-S2.? Gastrointestinal:??Abdomen is soft, nontender, nondistended with positive bowel sounds. Skin:??Warm and dry.? No rash or lesions on limited exam. Extremities:??No cyanosis, clubbing, or edema. Neurological:??Alert.? Cranial nerves 2-12 are grossly intact. No gross focal deficits to casual conversation. Psychiatric:??Pleasant and cooperative with normal mood and affect.? Objective Data Vital Signs Vital Signs: Vital Signs - 24 hr 04/27/23 08:26 04/27/23 09:00 04/27/23 08:00 Temperature Pulse Rate 80 63 Respiratory Rate Blood Pressure Pulse Oximetry Oxygen Delivery Room Air 04/27/23 12:00 04/27/23 14:00 04/27/23 16:00 Temperature 98.1 F Pulse Rate 80 81 74 Respiratory Rate 18 Blood Pressure 145/70 H Pulse Oximetry 97 Oxygen Delivery 04/27/23 19:30 04/27/23 20:00 04/27/23 20:00 Temperature 96.6 F L Pulse Rate 73 74 Respiratory Rate 17 Blood Pressure 133/68 Pulse Oximetry 97 Oxygen Delivery Room Air 04/28/23 03:59 04/28/23 00:00 04/28/23 04:00 Temperature 97 F L Pulse Rate 76 67 79 Respiratory Rate 16 Blood Pressure 143/77 H Pulse Oximetry 99 Oxygen Delivery Intake/Output Intake/Output: Intake & Output 04/25/23 04/26/23 04/27/23 04/28/23 23:59 23:59 23:59 23:59 Intake Total 1620 2240 1900 350 Output Total 3750 2700 3150 300 Balance -2130 460 -9370 50 Meds/Results Medications: Active Medications Generic Name Dose Route Start Last Admin Trade Name Freq PRN Reason Stop Dose Admin Amlodipine Besylate 10 mg 04/23/23 21:00 04/27/23 21:03 Amlodipine Besylate 5 Mg Tablet PO 10 mg HS LARISSA Administration Clonazepam 1 mg 04/23/23 21:00 04/27/23 21:03 Clonazepam (*Crx) 0.5 Mg Tablet PO 1 mg QHS LARISSA Administration Cyproheptadine HCl 4 mg 04/23/23 21:00 04/27/23 21:03 Cyproheptadine Hcl 4 Mg Tablet PO 4 mg HS LAIRSSA Administration Folic Acid 2 mg 04/23/23 09:00 04/27/23 08:26
[2023-04-28 08:45] VITALS: PULSE 82
[2023-04-28] MEDS: METOPROLOL SUCCINATE EXT REL 50 MG TABCR PO (08:45)
[2023-04-28] MEDS: ACETAMINOPHEN 500 MG TABLET 1000 MG PO (08:45)
[2023-04-28] MEDS: FOLIC ACID 1 MG TABLET 2 MG PO (08:45)
[2023-04-28] MEDS: THERAPEUTIC MULTIVITAMINS/MINERALS TAB (*BKC) 1 TABLET PO (08:45)
[2023-04-28] MEDS: SPIRONOLACTONE 25 MG TABLET PO (08:45)
[2023-04-28] MEDS: sulfaSALAzine 500 MG TABLET PO (08:45)
[2023-04-28] MEDS: VITAMIN B COMPLEX CAPSULE 1 CAP PO (08:45)
[2023-04-28] MEDS: CHOLECALCIFEROL 1,000 UNITS TABLET 4000 UNITS PO (08:45)
[2023-04-28 09:05] VITALS: PULSE 76
[2023-04-28 12:00] VITALS: PULSE 81
--- NOTE | 2023-04-28 13:19 | PM.IMPN ---
Progress Note: A&P Assessment and Plan (1) Shortness of breath: Code(s): R06.02 - Shortness of breath Status: Acute (2) Rheumatoid arthritis: Code(s): M06.9 - Rheumatoid arthritis, unspecified Status: Acute (3) Benign hypertension: Code(s): I10 - Essential (primary) hypertension Status: Acute Plan 68-year-old female with history of rheumatoid arthritis on month seen effusions methotrexate sulfasalazine and currently on prednisone and hypertension presented with shortness of breath worsened since past 2 weeks. SOB Outpatient chest CT was normal. Presented with tingling weakness and burning sensation in bilateral upper extremities. She was tachycardic in 120s on arrival to the ED. shortness of breath ongoing for several years. Chest CT 04/02/2023 with no PE no pericardial or pleural effusion. EKG with left axis deviation signs of LVH nonspecific ST-T changes. consult pulmonary and cardiolgoy see for evaluation. ABG 7.49/32/81/24 CO troponin negative BNP 72 Lipase 304 TSH normal Flu RSV COVID negative D-dimer elevated normal WBC count Head CT negative Chest x-ray no acute cardiopulmonary process Echo notable for PASP 31 mmHg Echocardiogram is unremarkable.? Lexiscan stress test this morning did not show and ischemia or infarct, EF 70%.? cardiology following pulm has scheduled PFT in 2 weeks and signed off Hypertension Blood pressure is controlled CKD stage 3 Resolves BUN 17, creatinine 0.9 GERD Stable Hyperlipidemia Phan Rheumatoid arthritis Colon polyps we will discharge pt when it is approved by chemical dependency therapist Subjective Date/time seen: 04/28/23 13:19 Interval history: I saw on exam patient today, patient still has shortness breath with exertion, no change , Lab work is unremarkable patient denies cough, chest pain, abdomen pain, nausea vomiting Exam Narrative: General:?Well-developed female sitting up in bed. mild conversational dyspnea HEENT:??PERRL, EOMI.? Sclerae anicteric. Moist mucous membranes. Neck:??Supple. No thyromegaly, lymphadenopathy, or JVD. Respiratory:?Mild conversational dyspnea. Lungs are clear to auscultation bilaterally. Cardiovascular:??Regular rate and rhythm with S1-S2.? Gastrointestinal:??Abdomen is soft, nontender, nondistended with positive bowel sounds. Skin:??Warm and dry.? No rash or lesions on limited exam. Extremities:??No cyanosis, clubbing, or edema. Neurological:??Alert.? Cranial nerves 2-12 are grossly intact. No gross focal deficits to casual conversation. Psychiatric:??Pleasant and cooperative with normal mood and affect.? Objective Data Vital Signs Vital Signs: Vital Signs - 24 hr 04/27/23 14:00 04/27/23 16:00 04/27/23 19:30 Temperature 98.1 F 96.6 F L Pulse Rate 81 74 73 Respiratory Rate 18 17 Blood Pressure 145/70 H 133/68 Pulse Oximetry 97 97 Oxygen Delivery 04/27/23 20:00 04/27/23 20:00 04/28/23 03:59 Temperature 97 F L Pulse Rate 74 76 Respiratory Rate 16 Blood Pressure 143/77 H Pulse Oximetry 99 Oxygen Delivery Room Air 04/28/23 00:00 04/28/23 04:00 04/28/23 08:45 Temperature Pulse Rate 67 79 82 Respiratory Rate Blood Pressure Pulse Oximetry Oxygen Delivery 04/28/23 09:05 04/28/23 09:05 04/28/23 12:00 Temperature Pulse Rate 76 81 Respiratory Rate Blood Pressure Pulse Oximetry Oxygen Delivery Room Air Intake/Output Intake/Output: Intake & Output 04/25/23 04/26/23 04/27/23 04/28/23 23:59 23:59 23:59 23:59 Intake Total 1620 2240 1900 590 Output Total 3750 2700 3150 750 [facility] -2130 -460 -1250 -160 Meds/Results Medications: Active Medications Generic Name Dose Route Start Last Admin Trade Name Freq PRN Reason Stop Dose Admin Acetaminophen 1,000 mg 04/28/23 08:04 04/28/23 08:45 Acetaminophen 500 Mg Tablet PO 1,000 mg Q6H PRN Administration Mild Pain (1-3) or Fever Amlodipine B
--- NOTE | 2023-04-28 13:31 | PM.PNCARD ---
Progress Note: A&P Assessment and Plan (1) Dyspnea: Qualifiers: Dyspnea type: shortness of breath Qualified Code(s): R06.02 - Shortness of breath Code(s): R06.00 - Dyspnea, unspecified Status: Acute Assessment and Plan: Patient with hypertension, rheumatoid arthritis. Patient has been experiencing shortness of breath, with minimal exertion and sometimes at rest. Her cardiac testing is mostly unremarkable. EKG showed sinus rhythm without any acute ST segment abnormality. MPI was negative for ischemia. Echo showed preserved LV systolic function, grade 1 diastolic dysfunction. Serial troponins were negative. NT proBNP unremarkable. No PE on CTA chest. -spoke at length with the patient and her and reassured them about cardiac testing. Patient is scheduled to undergo outpatient pulmonary function testing. Patient has rheumatoid arthritis and possibility of rheumatoid lung disease cannot be completely ruled out. Medications adverse effects also need to be considered. She was advised to follow-up with pulmonology as an outpatient. I also provided information about our [facility]iology [facility] for follow-up visit. Plan was also discussed with the hospitalist. (2) Diastolic dysfunction: Code(s): I51.89 - Other ill-defined heart diseases Status: Acute Assessment and Plan: No significant volume overload present. May try SGLT 2 inhibitor and see if there is any improvement in symptoms. Patient is awaiting pulmonary function testing. Time Spent With Patient Time with patient: Greater than 35 minutes Subjective Date/time seen: 04/28/23 13:31 Interval history: 04/28/2023-patient has been experiencing shortness of breath, with minimal exertion and sometimes at rest. No chest pain her MPI was negative for ischemia. Echo showed normal LV systolic function, grade 1 diastolic dysfunction. Exam Narrative: PHYSICAL EXAMINATION: GENERAL: Alert, oriented, no acute distress MENTAL STATUS: Anxious, tearful EYES: Extraocular movements intact, no pallor EARS: External ears appear normal, hearing grossly normal NOSE: Normal and patent, no discharge MOUTH: Mucous membranes moist, tongue normal NECK: Supple, no JVD CHEST: Coarse breath sounds, no crackles HEART: Normal rate, regular rhythm, normal S1 and S2, no audible murmurs ABDOMEN: Soft, nontender NEUROLOGICAL: Alert, oriented, normal speech, no gross motor deficits MUSCULOSKELETAL: No major deformity, no amputation EXTREMITIES: Trace pedal edema, no clubbing, no cyanosis SKIN: no rash on the exposed area, no cyanosis PSYCHIATRIC: Anxious Objective Data Vital Signs Vital Signs: Vital Signs - 24 hr 04/27/23 14:00 04/27/23 16:00 04/27/23 19:30 Temperature 36.7 C 35.9 C L Pulse Rate 81 74 73 Respiratory Rate 18 17 Blood Pressure 145/70 H 133/68 Pulse Oximetry 97 97 Oxygen Delivery 04/27/23 20:00 04/27/23 20:00 04/28/23 03:59 Temperature 36.1 C L Pulse Rate 74 76 Respiratory Rate 16 Blood Pressure 143/77 H Pulse Oximetry 99 Oxygen Delivery Room Air 04/28/23 00:00 04/28/23 04:00 04/28/23 08:45 Temperature Pulse Rate 67 79 82 Respiratory Rate Blood Pressure Pulse Oximetry Oxygen Delivery 04/28/23 09:05 04/28/23 09:05 04/28/23 12:00 Temperature Pulse Rate 76 81 Respiratory Rate Blood Pressure Pulse Oximetry Oxygen Delivery Room Air Intake/Output Intake/Output: Intake & Output 04/25/23 04/26/23 04/27/23 04/28/23 23:59 23:59 23:59 23:59 Intake Total 1620 2240 1900 590 Output Total 4240 3830 7430 750 [facility] -2130 -460 -1250 -160 Meds/Results Medications: Active Medications Generic Name Dose Route Start Last Admin Trade Name Freq PRN Reason Stop Dose Admin Acetaminophen 1,000 mg 04/28/23 08:04 04/28/23 08:45 Acetaminophen 500 Mg Tablet PO 1,000 mg Q6H PRN Administration Mild Pain (1-3) or Fever Am
--- NOTE | 2023-04-28 14:18 | PM.DS ---
DS: Admitting Diagnosis Discharge Date 04/28/23 Admitting Diagnosis (1) Shortness of breath: ?Code(s): R06.02 - Shortness of breath ?Status:?Acute (2) Rheumatoid arthritis: ?Code(s): M06.9 - Rheumatoid arthritis, unspecified ?Status:?Acute (3) Benign hypertension: ?Code(s): I10 - Essential (primary) hypertension ?Status:?Acute DS: Discharge Diagnosis Discharge Diagnosis (1) Shortness of breath: Code(s): R06.02 - Shortness of breath Status: Acute (2) Rheumatoid arthritis: Code(s): M06.9 - Rheumatoid arthritis, unspecified Status: Acute (3) Benign hypertension: Code(s): I10 - Essential (primary) hypertension Status: Acute DS: Summary Hospital Course Hospital Course: 68-year-old female with history of rheumatoid arthritis on month seen effusions methotrexate sulfasalazine and currently on prednisone and hypertension presented with shortness of breath worsened since past 2 weeks.? The following medical issues have been addressed during hospitalization SOB Outpatient chest CT was normal.? Presented with tingling weakness and burning sensation in bilateral upper extremities.? She was tachycardic in 120s on arrival to the ED. shortness of breath ongoing for several years.? Chest CT 04/02/2023 with no PE no pericardial or pleural effusion.? EKG with left axis deviation signs of LVH nonspecific ST-T changes. consult pulmonary and cardiolgoy see for evaluation. ABG 7.49/32/81/24 CO troponin negative BNP 72 Lipase 304 TSH normal Flu RSV COVID negative D-dimer elevated normal WBC count Head CT negative Chest x-ray no acute cardiopulmonary process Echo notable for PASP 31 mmHg Echocardiogram is unremarkable.? Lexiscan stress test this morning did not show and ischemia or infarct, EF 70%.? brush holder inspector considers possible decompensated diastolic function, cardiology recommends start Jardiance 10 mg daily p.o.. Operatives will see patient in the office pulm has scheduled PFT in 2 weeks and signed off Hypertension Blood pressure is controlled CKD stage 3 Resolves BUN 17, creatinine 0.9 GERD Stable Hyperlipidemia Phan Rheumatoid arthritis Colon polyps Continue home medications Time Spent with Patient Time attestation: Total time spent providing and/or coordinating discharge services: DS: Data Data Completed and Pending Labs on day of discharge: Labs from last 24 hours 04/28/23 04:41 Sodium 136 L Potassium 3.8 Chloride 102 Carbon Dioxide 26 Anion Gap 8 BUN 18 H Creatinine 0.80 Estim Creat Clear Calc 74 Estimated GFR > 60 Glucose 89 Calcium 9.2 Discharge Plan Discharge Attending physician on discharge: Rissa Escobedo Consulting providers: Danilo Solomon; Nikolas Valdivia Discharging Clinician: Rissa Escobedo Anticipated Discharge Date/Time: 04/28/23 14:16 Patient Disposition: Home, Self-Care Activity: as tolerated Diet: as tolerated Discharge Instructions: Will discharge patient when it is approved by brush holder inspector Patient Instructions: Antibiotic Form, Pain Management (DC), Dyspnea (DC) Stand Alone Forms: General Discharge Information Follow-up/Referrals: Nikolas Valdivia MD [Physician] - (Patient needs to see brush holder inspector as scheduled appointment for follow-up) Aric Brown MD [Primary Care Provider] - (Patient need to see primary care doctor in 1 week) Danilo Solomon MD [Physician] - (Patient needs to see preparole counseling aide at scheduled appointment for PFT test) Discharge Medications: New Jardiance 10 mg tablet 10 mg PO DAILY Qty: 30 0RF Continued vitamin B complex [B Complex-Vitamin B12] Tablet 1 tablet PO DAILY folic acid 1 mg tablet 2 mg PO DAILY Women's 50 Plus Multivitamin 400 mcg-500 mg calcium-20 mcg tablet 1 tablet PO DAILY sulfasalazine 500 mg tablet 0.5 g PO BID Rx Instructions: give with food (meal/snack)
== END 2023-04-28 15:00 | disposition home or self-care (01) ==
LOC: ANHED 20:06 → ANH2MED 04-23 03:23
PROVIDERS: Internal Medicine; Internal Medicine Pulmonary Disease; Physician Assistant; Admitting Provider Family Medicine; Emergency Provider Student in an Organized Health Care Education/Training Program; PCP Emergency Medicine; Visit Provider Hospitalist
DX: R06.02 Shortness of breath (principal); M06.9 Rheumatoid arthritis, unspecified; R42 Dizziness and giddiness; R06.03 Acute respiratory distress; R20.2 Paresthesia of skin; R20.8 Other disturbances of skin sensation; I70.0 Atherosclerosis of aorta; K21.9 Gastro-esophageal reflux disease without esophagitis; K57.92 Diverticulitis of intestine, part unspecified, without perforation or abscess without bleeding; I12.9 Hypertensive chronic kidney disease with stage 1 through stage 4 chronic kidney disease, or unspecified chronic kidney disease; N18.30 Chronic kidney disease, stage 3 unspecified; I08.3 Combined rheumatic disorders of mitral, aortic and tricuspid valves; M47.812 Spondylosis without myelopathy or radiculopathy, cervical region; R94.31 Abnormal electrocardiogram [ECG] [EKG]; R79.1 Abnormal coagulation profile; E78.2 Mixed hyperlipidemia; K75.81 Nonalcoholic steatohepatitis (NASH); M12.38 Palindromic rheumatism, other specified site; H40.9 Unspecified glaucoma; Z83.511 Family history of glaucoma; Z82.49 Family history of ischemic heart disease and other diseases of the circulatory system; Z79.52 Long term (current) use of systemic steroids; Z79.899 Other long term (current) drug therapy
CPT/HCPCS: 36415; 36600; 70450; 71046; 72040; 78452; 80048; 80053; 80307; 82375; 82550; 82805; 83050; 83605; 83690; 83735; 83880; 84443; 84484; 85025; 85027; 85380; 85610; 85730; 86140; 86430; 87637; 93005; 93017; 93306; 94762; 99285; A9270; A9502; G0378; J2785; J7512

== ENCOUNTER 2023-05-06 09:15 | Outpatient (CLI) | payer MEDICARE, SELFPAY ==
--- NOTE | 2023-05-06 12:40 | WPDPFTINT ---
PFT Procedure Performed PFT Procedure Performed Plethysmography (Lung Vol) Diffusing Cap (DLCO) Flow Vol Loop Spirometry w/o Bronchodil PFT Interpretation Lung volumes were measured with the body plethysmography method. Lung volumes are unremarkable. Spirometry showed normal expiratory flow rates and a normal FEV1 to FVC ratio 72%. No post bronchodilator study carried out. Lung diffusion capacity is within the normal range at 77% predicted. The flow - loop is unremarkable. Impression: Spirometry, lung volumes, and lung diffusion capacity all within the normal range.
== END 2023-05-06 09:16 | disposition home or self-care (01) ==
PROVIDERS: PCP Emergency Medicine; Visit Provider Emergency Medicine
DX: R06.02 Shortness of breath (principal)
CPT/HCPCS: 94375; 94726; 94729

== ENCOUNTER 2023-06-10 08:55 | Outpatient (CLI) | payer MEDICARE, SELFPAY ==
--- NOTE | 2023-07-03 09:22 | WPDSLEEPSTUD ---
Sleep Study Date of Study: 06/10/23 Ordering Provider: Laz Jamison APRN Interpreting Physician: Lamar Banuelos DO Sleep Study Type: Split Polysomnogram Height: 1.73 m Weight: 102.058 kg Body Mass Index: 34.2 Neck Circumference (inches): 16 Belk: 7 Reason for Sleep Study Daytime hypersomnia Sleep History The patient is a 68-year-old female with rheumatoid arthritis, chronic kidney disease, hypertension, hyperlipidemia, GERD, glaucoma and non alcoholic steatohepatitis that had a sleep study ordered by the pulmonary group for evaluation of sleep apnea. The patient denies awakening from sleep short of breath. She occasionally awakens at night with heartburn, belching or cough. She occasionally snores but it is rarely loud enough that others complain. She rarely has trouble sleeping when she has a cold. She denies waking up gasping for air throughout the night. She denies having breathing problems at night observed by herself or others. She rarely sweats excessively at night. She rarely has heart palpitations or irregular heartbeats during the night. She rarely falls asleep during the day and never falls asleep while driving. She denies sleep paralysis, cataplexy and hypnagogic / hypnopompic hallucinations. She denies having trouble at school or work due to sleepiness. She denies feeling afraid of going to sleep. She rarely has nightmares. She occasionally remembers her dreams. She occasionally has thoughts racing through her mind. She rarely feels sad or depressed. She occasionally has anxiety. She occasionally has muscular tension. She denies noticing parts of her body jerk. She denies kicking during the night. She denies having crawling and aching feelings in her legs and denies having leg pain during the night. She denies grinding her teeth during sleep and denies awakening with morning jaw pain. She is frequently bothered by pain during the day but rarely awakened by pain during the night. She frequently wakes up feeling stiff in the morning. She frequently wakes up with sore or achy muscles. She occasionally wakes up with pain in the neck, spine and other joints. She goes to bed between midnight to 2:00 a.m. on both weekdays and weekends. He can take her 1-2 hours to fall asleep. She wakes up once throughout the night to urinate and is able fall back asleep within 30 minutes. She wakes up between 7-730 a.m. on both weekdays and weekends. She typically gets 5-6 hours of sleep per night. She currently lives with her . She denies consuming any caffeinated beverages within 2 hours of bedtime. She denies engaging in physical exercise before bedtime. She will watch television before falling asleep. She denies taking naps in the afternoon or the evening. She consumes 5-6 caffeinated beverages per week. She denies tobacco, alcohol and recreational drug use. [facility] Past Medical History Medical History Atherosclerosis of aorta Benign hypertension Chronic kidney disease, stage 3 Diverticulitis Gastroesophageal reflux disease Immunocompromised state due to drug therapy Mixed hyperlipidemia Nonalcoholic steatohepatitis ([place]ONEY) Rheumatoid arthritis Unspecified glaucoma Surgical History Surgical History History of arthroplasty of right knee (2001) History of cardiac catheterization History of cholecystectomy History of colonoscopy with polypectomy History of hysterectomy History of lateral meniscus repair of left knee (09/2015) History of tonsillectomy (1963) Family History Family History Father Cerebrovascular accident Carcinoma of colon Glaucoma Mother Hypertension Glaucoma Breast cancer Social History Social History Social History: Surrogate decision make
[2023-07-03 09:24] VITALS: BMI 34.2
== END 2023-06-11 06:57 | disposition home or self-care (01) ==
LOC: ANHCSM 08:59
PROVIDERS: PCP Emergency Medicine; Visit Provider Nurse Practitioner Family
DX: G47.33 Obstructive sleep apnea (adult) (pediatric) (principal); G47.61 Periodic limb movement disorder
CPT/HCPCS: 95811

== ENCOUNTER 2023-08-13 08:59 | Outpatient (CLI) | payer MEDICARE, SELFPAY ==
--- NOTE | ~2023-08-13 | XR_ITS ---
Supine and upright views of the abdomen Clinical history: Right renal stone COMPARISON: 08/07/2022 Findings: Bowel gas pattern is nonspecific. No evidence for obstruction or free air. No abnormal mass lesion or calcification is seen. Osseous structures are intact. Impression: No significant abnormality is seen. Reviewed, dictated and finalized at [facility]. BUILDER Impression: No significant abnormality is seen.
== END 2023-08-13 09:00 | disposition home or self-care (01) ==
PROVIDERS: PCP Emergency Medicine; Visit Provider Urology
DX: N20.0 Calculus of kidney (principal)
CPT/HCPCS: 74018

== ENCOUNTER 2023-10-10 07:27 | Outpatient (CLI) | payer MEDICARE, SELFPAY ==
--- NOTE | ~2023-10-10 | MM_ITS ---
EXAMINATION: MM screening rodri BI w arya HISTORY: Screening mammogram TECHNIQUE: Craniocaudal and mediolateral oblique 3-D tomosynthesis images were obtained and synthetic 2-D images were generated. CAD analysis was submitted and interpreted. COMPARISON: 07/18/2022 bilateral screening mammogram 05/30/2021 diagnostic bilateral mammogram and limited left breast ultrasound 01/29/2020 bilateral screening mammogram BREAST PARENCHYMAL COMPOSITION: There are scattered areas of fibroglandular density. FINDINGS: There is no evidence of suspicious mass, calcification, or architectural distortion to sugg est malignancy in either breast. There has been no suspicious interval change. IMPRESSION: 1. No mammographic evidence of malignancy. 2. Recommend routine screening mammography in one year. BI-RADS Category 1: Negative Reviewed, dictated and finalized at location A.
== END 2023-10-10 07:28 | disposition home or self-care (01) ==
PROVIDERS: PCP Emergency Medicine; Visit Provider Obstetrics & Gynecology
DX: Z12.31 Encounter for screening mammogram for malignant neoplasm of breast (principal)
CPT/HCPCS: 77063; 77067

== ENCOUNTER 2025-01-06 09:32 | Outpatient (CLI) | payer MEDICARE, SELFPAY ==
--- NOTE | ~2025-01-06 | MM_ITS ---
EXAMINATION: MM screening rodri BI w arya HISTORY: Screening mammogram TECHNIQUE: Craniocaudal and mediolateral oblique 3-D tomosynthesis images were obtained and synthetic 2-D images were generated. CAD analysis was submitted and interpreted. COMPARISON: 10/10/2023, 07/18/2022 05/30/2021 BREAST PARENCHYMAL COMPOSITION:Not Dense. There are scattered areas of fibroglandular density. FINDINGS: No suspicious mass, calcification, or architectural distortion are identified in either gabrielle ast to suggest malignancy. There has been no suspicious interval change. IMPRESSION: No mammographic evidence of malignancy. Recommend routine screening mammography in one year. BI-RADS Category 1: Negative Reviewed, dictated and finalized at location .
== END 2025-01-06 09:33 | disposition home or self-care (01) ==
LOC: ANHIMG 09:33
PROVIDERS: PCP Family Medicine; Visit Provider Obstetrics & Gynecology
DX: Z12.31 Encounter for screening mammogram for malignant neoplasm of breast (principal)
CPT/HCPCS: 77063; 77067